=== PATIENT | female | born 1960 | race Caucasian/White ===

== ENCOUNTER 2019-07-23 10:51 | Emergency (ER) | payer OTHER, SELFPAY ==
--- NOTE | ~2019-07-23 | XR_ITS ---
EXAMINATION: XR ankle RT 2V, XR tibia fibula RT 2V, XR foot RT 2V DATE: 07/23/2019 INDICATION: Fall with right lower leg injury presenting with pain at the anterior lower leg and ankle extending over the dorsum of the foot. TECHNIQUE: 1. Anteroposterior and lateral views of the right tibia and fibula were obtained. 2. Anteroposterior and lateral view of the right ankle were obtained. 3. Dorsoplantar and lateral views of the right foot were obtained. COMPARISON: None. FINDINGS: Alignment of the right lower leg, ankle and foot is normal. No fracture or osteochondral lesion. Join t spaces are well maintained. Moderate-sized plantar calcaneal spur. No ankle joint effusion. Mild so ft tissue swelling without evident subcutaneous edema anterior to the distal lower leg. IMPRESSION: 1. Plantar calcaneal spur. No other osseous abnormality in the right lower leg, ankle or foot. Reviewed, dictated and finalized at location A. IMPRESSION: 1. Plantar calcaneal spur. No other osseous abnormality in the right lower leg, ankle or foot. IMPRESSION: 1. Plantar calcaneal spur. No other osseous abnormality in the right lower leg, ankle or foot.
--- NOTE | 2019-07-23 11:15 | ED.FALL ---
HPI - Fall General Stated Complaint: injured r leg and foot Source: patient Mode of arrival: ambulatory Limitations: no limitations History of Present Illness HPI Narrative: This is a 58-year-old female that presents after she fell earlier this morning at home and injuring her right foot ankle and leg causing some pain and some burning sensation bruising to the anterior surface of her right lee, there was no loss of consciousness no head injury. complaint: fall Onset (ago): hour(s) Fall from: standing Fall witnessed: no Place fall occurred: home Loss of consciousness: none Prolonged down time: no Symptoms prior to fall: none Context: tripped/slipped Location of injury - extremities: Right: lower leg, ankle and foot Severity: moderate Severity scale (1-10): 6 Quality: burning Associated symptoms (after fall): denies Related Data Home Medications Medication Instructions Recorded Confirmed aspirin 81 mg PO DAILY 07/23/19 07/23/19 citalopram 40 mg PO DAILY 07/23/19 07/23/19 estradiol 1 mg PO DAILY 07/23/19 07/23/19 fenofibrate nanocrystallized 145 mg PO DAILY 07/23/19 07/23/19 furosemide 20 mg PO DAILY 07/23/19 07/23/19 metformin 500 mg PO DAILY 07/23/19 07/23/19 ijkeezwz-vip-XJ-lycopen-lutein 1 tablet PO DAILY 07/23/19 07/23/19 [CertaVite Senior-Antioxidant] nortriptyline 25 mg PO HS 07/23/19 07/23/19 pantoprazole 40 mg PO HS 07/23/19 07/23/19 zolpidem 5 mg PO HS 07/23/19 07/23/19 Allergies Allergy/AdvReac Type Severity Reaction Status Date / Time No Known Allergies Allergy Verified 07/23/19 11:27 Review of Systems Review of Systems: All systems reviewed & are unremarkable except as noted in HPI and below PMFSH Past Medical History Medical History (Updated 07/23/19 @ 11:52 by Andrew Mclean MD) Asymptomatic PVCs Diabetes mellitus HLD (hyperlipidemia) HTN (hypertension) Exam Const: General: no acute distress and alert Nutritional Appearance: well nourished and obese Orientation/consciousness: patient oriented x3 HENMT: Head: normal to inspection Eyes: Conjunctivae: conjunctivae normal Pupils: Equal, round and reactive pupils present Neck: Neck: normal visual inspection and no lymphadenopathy Chest: Chest palpation & inspection: normal inspection of the chest Resp: Effort & Inspection: normal respiratory effort Auscultation: clear to auscultation bilaterally Cardio: Rate: regular rate Rhythm: regular rhythm GI: Auscultation: normal bowel sounds : General: Yes no CVA tenderness Skin: General skin exam: normal color Rashes: no rashes Neuro: General: patient oriented x3 and moves all extremities Extrem: Other: Mildly decreased range of motion of foot ankle with some mild swelling and bruising mid shaft anterior lee has good range of motion of her knee. Critical Care Time Critical Care Time Critical Care Time: No Discharge Plan Discharge Clinical Impression: Sprain and strain of ankle Patient Disposition: Home, Self-Care Condition: Stable Instructions: Antibiotic Form, Ankle Sprain (ED) Additional Instructions: follow with primary doctor if symptoms persist or worsen, ICE to affected area, tylenol or motrin for brandee. Follow-up/Referrals: Catracho Marshall MD [Primary Care Provider] - Time of Disposition: 11:52
[2019-07-23] MEDS: ACETAMINOPHEN 500 MG TABLET 1000 MG PO (11:29)
[2019-07-23 11:30] VITALS: BP 132/79; PULSE 88; RESP 16; TEMP 36.3; O2SAT 95
== END 2019-07-23 12:01 | disposition home or self-care (01) ==
PROVIDERS: Emergency Provider Emergency Medicine; PCP Internal Medicine
DX: S93.401A Sprain of unspecified ligament of right ankle, initial encounter (principal); W19.XXXA Unspecified fall, initial encounter
CPT/HCPCS: 73590; 73600; 73620; 99282; 99284

== ENCOUNTER 2020-02-16 09:47 | Outpatient (CLI) | payer OTHER, SELFPAY ==
--- NOTE | ~2020-02-16 | MM_ITS ---
EXAMINATION: MM screening jean-pierre BI w gabriella HISTORY: Screening mammogram TECHNIQUE: Craniocaudal and mediolateral oblique 3-D tomosynthesis images were obtained and synthetic 2-D images were generated. CAD analysis was submitted and interpreted. COMPARISON: 02/12/2019, 01/15/2018 bilateral digital screening mammogram examinations BREAST PARENCHYMAL COMPOSITION: There are scattered areas of fibroglandular density. FINDINGS: There is no evidence of suspicious mass, calcification, or architectural distortion to sugg est malignancy in either breast. There has been no suspicious interval change. IMPRESSION: 1. No mammographic evidence of malignancy. 2. Recommend routine screening mammography in one year. BI-RADS Category 1: Negative Reviewed, dictated and finalized at location A.
[2020-02-16 10:04] LABS: Basophils Absolute Auto 0.05 K/mm3 (0.00-0.10); Basophils Percent Auto 0.6 % (0.0-1.0); Eosinophils Absolute Auto 0.29 K/mm3 (0.02-0.50); Eosinophils Percent Auto 3.7 % (1.0-6.0); Hematocrit 43.4 % (35.0-49.0); Hemoglobin 14.5 g/dL (12.0-15.0); Immature Granulocyte Absolute 0.03 K/mm3 (0.00-0.00); Immature Granulocyte Percent A 0.4 % (0.0-0.0); Lymphocytes Absolute Auto 2.01 K/mm3 (1.10-4.50); Lymphocytes Percent Auto 25.3 % (18.0-42.0); Mean Corpuscular HGB Conc 33.4 g/dL (32.0-36.0); Mean Corpuscular Volume 92.7 fL (78.0-102.0); Mean Platelet Volume 9.5 fl (9.2-11.8); Monocytes Absolute Auto 0.44 K/mm3 (0.10-0.90); Monocytes Percent Auto 5.5 % (2.0-11.0); Neutrophils Absolute Auto 5.1 K/mm3 (1.7-7.2); Neutrophils Percent Auto 64.5 % (50.0-70.0); Platelet Count Result 284 K/mm3 (150-420); Red Blood Count 4.68 M/mm3 (4.20-5.40); Red Cell Distribution Width 12.3 % (11.6-14.4); White Blood Count 7.9 K/mm3 (4.8-10.8)
[2020-02-16 10:17] LABS: Hemoglobin A1C 8.3 % (<5.7)
[2020-02-16 10:40] LABS: Add Urine Microscopic? YES; Appearance Urine Clear (Clear); Bilirubin Urine Negative (Negative); Blood Urine Negative (Negative); Color Urine Yellow (Yellow); Glucose Urine UA 1+ (Negative); Ketones Urine Negative (Negative); Leukocyte Esterase Ur Negative (Negative); Nitrate Urine Negative (Negative); Protein Urine Negative (Negative); Specific Grav Ur 1.025 (1.010-1.020); Urobilinogen Urine 0.2 mg/dL (0.2-1.0); pH Urine 5.5 (5.0-8.0)
[2020-02-16 10:47] LABS: Bacteria Urine 1+ /hpf; RBC Urine 0-2 /hpf (0-2); Squamous Epithelial Cell Urine Moderate /hpf (Few); WBC Urine 0-3 /hpf (0-3)
[2020-02-16 10:51] LABS: Creatinine Urine 283.98 mg/dL (40-278); MALB Creatinine Ratio 7.4 mg/g (0-30); Microalbumin Urine Random 21.1 mg/L
[2020-02-16 11:38] LABS: Alanine Aminotransferase 92 U/L (14-59); Albumin Level 4.2 g/dL (3.4-5.0); Alkaline Phosphatase 107 U/L (46-116); Anion Gap 9 mmol/L (8-16); Aspartate Amino Transferase 80 U/L (15-37); Bilirubin,Total 0.5 mg/dL (0.00-1.00); Blood Urea Nitrogen 21 mg/dL (7-18); Calcium 9.4 mg/dL (8.5-10.1); Carbon Dioxide 29 mmol/L (21-32); Chloride 99 mmol/L (98-108); Cholesterol 223 mg/dL (0-200); Estimated Glomerular Filt Rate 48; Free T3 3.04 pg/mL (2.18-3.98); Free T4 Free Thyroxine 1.31 ng/dL (0.76-1.46); Glucose 242 mg/dL (70-99); HDL Direct 27 mg/dL (40-60); LDL Cholesterol Calculated 129 mg/dL (<130); Osmolality Calculated 295 mOsm/kg (285-295); Potassium 4.1 mmol/L (3.5-5.1); Sodium 137 mmol/L (136-145); Thyroid Stimulating Hormone 4.75 uIU/mL (0.36-3.74); Total Protein 7.3 g/dL (6.4-8.2); Triglycerides 337 mg/dL (0-150)
[2020-02-21 13:37] LABS: Immunoglobulin A <5 mg/dL (47-310); Immunoglobulin G 813 mg/dL (600-1640); Immunoglobulin M 26 mg/dL (50-300)
== END 2020-02-16 09:48 | disposition home or self-care (01) ==
LOC: CHSLAB 09:54
PROVIDERS: PCP Internal Medicine; Visit Provider Internal Medicine
DX: Z12.31 Encounter for screening mammogram for malignant neoplasm of breast (principal); I10 Essential (primary) hypertension; E78.2 Mixed hyperlipidemia; E11.9 Type 2 diabetes mellitus without complications; I49.3 Ventricular premature depolarization; D84.9 Immunodeficiency, unspecified
CPT/HCPCS: 36415; 77063; 77067; 80053; 80061; 81001; 82043; 82784; 83036; 84439; 84443; 84481; 85025

== ENCOUNTER 2020-05-04 02:13 | Outpatient (CLI) | payer OTHER, SELFPAY ==
[2020-05-04 17:23] LABS: SARS-CoV-2 RNA PCR Negative
== END 2020-05-04 02:14 | disposition home or self-care (01) ==
LOC: ANHCOVIDDT 02:14
PROVIDERS: PCP Internal Medicine; Visit Provider Surgery
DX: Z01.812 Encounter for preprocedural laboratory examination (principal); Z20.822 Contact with and (suspected) exposure to COVID-19
CPT/HCPCS: C9803; U0003

== ENCOUNTER 2020-05-04 07:52 | Outpatient (CLI) | payer OTHER, SELFPAY ==
--- NOTE | 2020-05-04 07:55 | ECG_ITS ---
Measurements Intervals [place] Rate: 72 P: 47 NV: 177 QRS: 18 QRSD: 106 T: 30 QT: 407 QTc: 447 Interpretive Statements SINUS RHYTHM BORDERLINE R WAVE PROGRESSION, ANTERIOR LEADS BORDERLINE ST-T WAVE ABNORMALITY- ANTERIOR LEADS BASELINE ARTIFACT- I, II, AVR, AVF BORDERLINE ECG Electronically Signed On 05-04-2020 8:11:44 K[employer]OXER by See Haro D.O.
[2020-05-04 08:36] LABS: Anion Gap 7 mmol/L (8-16); Blood Urea Nitrogen 14 mg/dL (7-17); Calcium 9.2 mg/dL (8.4-10.2); Carbon Dioxide 29 mmol/L (22-30); Chloride 103 mmol/L (98-107); Estimated Glomerular Filt Rate > 60; Glucose 118 mg/dL (65-105); Potassium 3.8 mmol/L (3.4-5.0); Sodium 139 mmol/L (137-145)
== END 2020-05-04 07:53 | disposition home or self-care (01) ==
LOC: ANHSURGERY 07:55
PROVIDERS: Anesthesiology; PCP Internal Medicine; Visit Provider Surgery
DX: I10 Essential (primary) hypertension (principal); K43.0 Incisional hernia with obstruction, without gangrene; Z01.818 Encounter for other preprocedural examination; R94.31 Abnormal electrocardiogram [ECG] [EKG]
CPT/HCPCS: 36415; 80048; 86850; 86900; 86901; 93005

== ENCOUNTER 2020-05-07 01:33 | Day surgery (SDC) | payer OTHER, SELFPAY ==
[2020-04-26 15:05] VITALS: BMI 44.5
[2020-05-07] VITALS (12 sets, daily range): BP systolic 103–140; BP diastolic 55–77; PULSE 70–80; RESP 12–18; TEMP 36.3–37.1; O2SAT 93–98; BMI 44.2
--- NOTE | 2020-05-07 06:36 | P.PNAN_ITS ---
Anes - Initial Pre Proc Eval Procedure: Operation Date: 05/07/20 07:30 Proposed Procedures p Robotic Assisted Incisional Hernia Repair With Mesh - Padmini Fulton MD Date/Time: 05/07/20 06:36 Surgeon: Padmini Fulton MD Pre Op Diagnosis: Incisional Hernia Patient Data Age: 59 Gender: F Height: 5 ft 1 in Weight: 107 kg Allergies Allergy/AdvReac Type Severity Reaction Status Date / Time No Known Drug Allergies AdvReac Other Verified 04/26/20 14:29 Home Medications Medication Instructions Recorded Confirmed Type aspirin 81 mg PO HS 07/23/19 04/26/20 History citalopram 40 mg PO DAILY 07/23/19 04/26/20 History estradiol 1 mg PO DAILY 07/23/19 04/26/20 History fenofibrate nanocrystallized 145 mg PO DAILY 07/23/19 04/26/20 History furosemide 20 mg PO DAILY 07/23/19 04/26/20 History metformin 500 mg PO BID 07/23/19 04/26/20 History osvhhxsd-ozl-ZK-lycopen-lutein 1 tablet PO DAILY 07/23/19 04/26/20 History [CertaVite Senior-Antioxidant] nortriptyline 25 mg PO HS 07/23/19 04/26/20 History pantoprazole 40 mg PO HS 07/23/19 04/26/20 History zolpidem 5 mg PO HS 07/23/19 04/26/20 History lisinopril 5 mg tablet 5 mg PO DAILY 02/28/20 04/26/20 History Patient hx anesthesia problems: none Family hx anesthesia problems: none PMFSH Past Medical History Medical History Asymptomatic PVCs Diabetes mellitus History of blood transfusion HLD (hyperlipidemia) HTN (hypertension) Surgical History Surgical History H/O: hysterectomy 1999 History of laparoscopic appendectomy Hx laparoscopic cholecystectomy Hx of tonsillectomy Family History Family History Mother , age 58 Lung cancer Sibling Hypothyroid Grandparent Heart disease Grandparent COPD (chronic obstructive pulmonary disease) Social History Social History Years smoked: 15 Smoking status: Former smoker Tobacco type: cigarettes Second hand tobacco smoke exposure: No Smoking end date: 04/27/89 Alcohol intake: current Alcohol use details: 2X PER YEAR Substance use type: marijuana Other substance usage details: 2X PER YEAR Living arrangements: with family 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 Questions were solicited and answers provided to the satisfaction of the patient/family/POA.
[2020-05-07] MEDS: ACETAMINOPHEN 500 MG TABLET 1000 MG PO (06:46)
[2020-05-07] MEDS: LACTATED RINGERS 1,000 ML 30 ML IV CONT ×2 (06:47→09:33)
[2020-05-07] MEDS: KETOROLAC 15 MG/ML VIAL (*BKC) IV PUSH (06:47)
[2020-05-07 06:56] LABS: Glucose Point of Care 129 (65-105)
--- NOTE | 2020-05-07 07:18 | PM.IMHP ---
H&P: HPI History of Present Illness Date/Time: 05/07/20 07:18 Chief Complaint: incisional hernia Narrative: Delmar Hummel is a 59 year old female presenting with a bulge just to the left side of her umbilicus almost one year ago. Over the year she has lost some weight so the bulge is now more noticeable to her. Typically it is nontender, however she has had a couple episodes of burning. Surgical hx includes total hysterectomy with repair of her pelvic floor in 1999, laparoscopic appendectomy, and laparoscopic cholecystectomy. She is a diabetic and found on recent labs her A1C was had elevated and is working to get her diabetes more controlled. Review of Systems Review of Systems: All systems reviewed & are unremarkable except as noted in HPI and below PMFSH Past Medical History Medical History Asymptomatic PVCs Diabetes mellitus History of blood transfusion HLD (hyperlipidemia) HTN (hypertension) Surgical History Surgical History H/O: hysterectomy 1999 History of laparoscopic appendectomy Hx laparoscopic cholecystectomy Hx of tonsillectomy Family History Family History Mother , age 58 Lung cancer Sibling Hypothyroid Grandparent Heart disease Grandparent COPD (chronic obstructive pulmonary disease) Social History Social History Years smoked: 15 Smoking status: Former smoker Tobacco type: cigarettes Second hand tobacco smoke exposure: No Smoking end date: 04/27/89 Alcohol intake: current Alcohol use details: 2X PER YEAR Substance use type: marijuana Other substance usage details: 2X PER YEAR Living arrangements: with family 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 Spiritual care concerns: No Meds Home Medications and Allergies Home Medications Medication Instructions Recorded Confirmed Type aspirin 81 mg PO HS 07/23/19 04/26/20 History citalopram 40 mg PO DAILY 07/23/19 04/26/20 History estradiol 1 mg PO DAILY 07/23/19 04/26/20 History fenofibrate nanocrystallized 145 mg PO DAILY 07/23/19 04/26/20 History furosemide 20 mg PO DAILY 07/23/19 04/26/20 History metformin 500 mg PO BID 07/23/19 04/26/20 History gytisipe-ytf-EW-lycopen-lutein 1 tablet PO DAILY 07/23/19 04/26/20 History [CertaVite Senior-Antioxidant] nortriptyline 25 mg PO HS 07/23/19 04/26/20 History pantoprazole 40 mg PO HS 07/23/19 04/26/20 History zolpidem 5 mg PO HS 07/23/19 04/26/20 History lisinopril 5 mg tablet 5 mg PO DAILY 02/28/20 04/26/20 History Allergies Allergy/AdvReac Type Severity Reaction Status Date / Time No Known Drug Allergies AdvReac Other Verified 04/26/20 14:29 Vital Signs Vital Signs - 24 hr 05/07/20 06:38 Temperature 36.3 C L Pulse Rate 80 Respiratory Rate 16 Blood Pressure 140/77 Pulse Oximetry 98 Exam Const: General: cooperative, comfortable and no acute distress Nutritional Appearance: obese Orientation/consciousness: patient oriented x3 Limitations: no limitations Resp: Effort & Inspection: normal respiratory effort Auscultation: clear to auscultation bilaterally Cardio: Jugular venous distension: no JVD Rate: regular rate Rhythm: regular rhythm GI: Inspection: normal to inspection, non-distended, no incisions and visible herniation GI Palp: Yes abdominal tenderness, Yes Soft to palpation, Yes Tenderness to palpation present (GI), No Guarding due to palpation present (GI) and No Rigid due to palpation Other: periumbilical ventral hernia Assessment and Plan Assessment and plan (1) Incisional hernia with obstruction, without gangrene: Code(s): K43.0 - Incisional hernia with obstruction, without gangrene Status: Acute Assessment and Plan: will setup for robotic repair c mesh (2) Morbid
--- NOTE | 2020-05-07 07:22 | WPDHPUPDATE1 ---
History and Physical Update Update Date/Time: 05/07/20 07:22 History and Physical has been reviewed, including an updated exam of the patient. There are NO changes in the patient's condition. Risks, benefits, and alternatives have been discussed and questions answered. Patient agrees to proceed with procedure.
[2020-05-07] MEDS: ceFAZolin 2 GM/D5W 50 ML 2 GM/50 ML BAG IVPB (07:26)
[2020-05-07] MEDS: BUPIVACAINE HCL 0.5% PF 30 ML VIAL INFILTRATE (07:48)
[2020-05-07 09:47] LABS: Glucose Point of Care 166 (65-105)
--- NOTE | 2020-05-07 09:50 | PM.PROC ---
Procedure Note - Detailed Date of procedure: 05/07/20 Pre-op diagnosis: Incisional Hernia incarcerated periumbilical ventral incisional hernia Post-op diagnosis: same Procedure performed: robotic assisted repair of incarcerated periumbilical ventral incisional hernia with 15 x 10 cm symbotex mesh in underlay position Description of procedure: The patient was taken the operating room placed in the supine position. After adequate induction of general anesthesia, the patient was prepped and draped in normal sterile fashion. A time-out was then done to verify the patient's identity as well as the procedure being performed. I began by making a 5 mm incision in the left upper quadrant. Through this, a Veress needle was placed into the peritoneal cavity and CO2 gas was insufflated. After adequate pneumoperitoneum was achieved, a 5 mm trocar was placed through this incision. I then placed the laparoscope through this trocar site and under direct visualization I placed a 8 mm port in the left mid abdomen as well as an additional 8 mm port in the left lower abdomen. I then moved the camera to the lower port and replaced the 5 mm port with a 12 mm airport. The robot was then docked to the 3 port sites. I then went to the robotic console. I began by identifying the hernia. A moderate-sized incarcerated hernia was noted in the periumbilical region. Using graspers, I was able to reduce this hernia. The hernia was noted to just contain preperitoneal fat. Once reduced, I also reduced and dissected out the hernia sac. I then closed the approximately 3 cm defect with 0 strata fix suture. I then placed a 15 x 10 cm symbotex mesh into the abdominal cavity. The Vicryl stitch was placed in the middle of the mesh and brought up centering the mesh over the defect. Once this was done, I used 2 0 V lock suture x 2 to circumferentially suture the mesh to the abdominal. Once the mesh was completely sutured in, I was happy with our tension-free repair. The mesh was noted to have good overlap of the defect. At this point, the robot was undocked and all ports were removed. I then closed the 12 mm port site with an 0 Vicryl [id number] suture at the fascial level. All port sites were then closed with 4 O Monocryl subcuticular suture. The patient tolerated the procedure well, is extubated in the operating room postoperative, OB transferred to the recovery room in stable condition. Anesthesia: GETA Surgeon: Padmini Fulton MD Estimated blood loss (mL): 10 Drains: No Packing: No Pathology: none sent Complications: No immediate complications Condition: stable Disposition: PACU Findings: incarcerated periumbilical ventral incisional hernia containing fat
[2020-05-07] MEDS: fentaNYL CITRATE INJ (*CRX) 100 MCG/2 ML VIAL 25 MCG IV PUSH ×4 (10:22→10:42)
--- NOTE | 2020-05-07 10:35 | SUR.PHASEI ---
1011; SAO2 DROPS TO 89-90% ON ROOM AIR. RESP EVEN UNLABORED. P,W,D PT C/O BEING HOT. STATES IM ALWAYS HOT O2 2L NC APPLIED
--- NOTE | 2020-05-07 11:04 | SUR.PHASEI ---
PT GIVEN ICE CHIPS. STATES PAIN MILD AND TOLERABLE. READY TO SIT IN RECLINER.
[2020-05-07] MEDS: oxyCODONE HCL (*CRX) 5 MG TAB IR PO (12:00)
== END 2020-05-07 12:45 | disposition home or self-care (01) ==
PROVIDERS: PCP Internal Medicine; Visit Provider Surgery
PROC: (CPT 49655; principal; 2020-05-07 07:30)
DX: K43.0 Incisional hernia with obstruction, without gangrene (principal); Z79.82 Long term (current) use of aspirin; E11.9 Type 2 diabetes mellitus without complications; E78.5 Hyperlipidemia, unspecified; Z87.891 Personal history of nicotine dependence; E66.01 Morbid (severe) obesity due to excess calories; Z68.41 Body mass index [BMI] 40.0-44.9, adult; Z79.84 Long term (current) use of oral hypoglycemic drugs
CPT/HCPCS: 49655; S2900; A9270; C1781; J0690; J1885; J2250; J3010; J7030; J7120

== ENCOUNTER → 2020-08-27 00:08 | Outpatient (CLI) | payer OTHER, SELFPAY ==
[2020-08-27 19:16] LABS: SARS-CoV-2 RNA PCR Negative
== END ==
PROVIDERS: PCP Internal Medicine; Visit Provider Surgery
DX: Z01.812 Encounter for preprocedural laboratory examination (principal); Z20.822 Contact with and (suspected) exposure to COVID-19
CPT/HCPCS: C9803; U0003; U0005

== ENCOUNTER 2020-08-30 01:25 | Day surgery (SDC) | payer OTHER, SELFPAY ==
[2020-08-16 15:03] VITALS: BMI 43.1
--- NOTE | 2020-08-29 11:31 | WPDANESEPPF ---
Anes - Initial Pre Proc Eval Procedure: Operation Date: 08/30/20 09:00 Proposed Procedures p Screening Colonoscopy - Nikos Willams DO Date/Time: 08/29/20 11:31 Surgeon: Nikos Willams DO Pre Op Diagnosis: Neoplasm Screening Patient Data Age: 60 Gender: F Height: 1.57 m Weight: 107 kg Allergies Allergy/AdvReac Type Severity Reaction Status Date / Time No Known Drug Allergies AdvReac Other Verified 08/30/20 08:05 Home Medications Medication Instructions Recorded Confirmed Type CertaVite Senior 1 tablet PO DAILY 07/23/19 08/16/20 History aspirin 81 mg PO HS 07/23/19 08/16/20 History citalopram 40 mg PO DAILY 07/23/19 08/16/20 History estradiol 1 mg PO DAILY 07/23/19 08/16/20 History fenofibrate nanocrystallized 145 mg PO DAILY 07/23/19 08/16/20 History furosemide 20 mg PO DAILY 07/23/19 08/16/20 History metformin 1,000 mg PO BID 07/23/19 08/16/20 History nortriptyline 25 mg PO HS 07/23/19 08/16/20 History pantoprazole 40 mg PO HS 07/23/19 08/16/20 History zolpidem 5 mg PO HS 07/23/19 08/16/20 History lisinopril 5 mg tablet 5 mg PO DAILY 02/28/20 08/16/20 History Patient hx anesthesia problems: none Family hx anesthesia problems: none PMFSH Past Medical History Medical History Asymptomatic PVCs Diabetes mellitus History of blood transfusion HLD (hyperlipidemia) HTN (hypertension) Surgical History Surgical History H/O: hysterectomy 1999 History of laparoscopic appendectomy History of ventral hernia repair 05/07/20 robotic assisted repair of incarcerated periumbilical ventral incisional hernia with 15 x 10 cm symbotex mesh in underlay position Hx laparoscopic cholecystectomy Hx of tonsillectomy Family History Family History Mother , age 58 Lung cancer Sibling Hypothyroid Grandparent Heart disease Grandparent COPD (chronic obstructive pulmonary disease) Social History Social History Years smoked: 15 Smoking status: Former smoker Tobacco type: cigarettes Second hand tobacco smoke exposure: No Smoking end date: 04/27/89 Alcohol intake: current Substance use: never Substance use type: does not use Other substance usage details: 2X PER YEAR Living arrangements: with family 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 Questions were solicited and answers provided to the satisfaction of the patient/family/POA.
[2020-08-30 08:06] VITALS: BP 143/88; PULSE 80; RESP 20; TEMP 36.3; O2SAT 98
[2020-08-30] MEDS: LACTATED RINGERS 1,000 ML 150 ML IV CONT (08:14)
[2020-08-30 08:20] LABS: Glucose Point of Care 130 (65-105)
--- NOTE | 2020-08-30 08:35 | PM.IMHP ---
H&P: HPI History of Present Illness Date/Time: 08/30/20 08:35 Chief Complaint: Personal history of polyps Narrative: this is a 60-year-old woman who presents for a colonoscopy. Her last colonoscopy was about 5 years ago and polyps were removed at that time. She does have some irregular bowel habits but denies any hematochezia or melena. She denies any family history of colon cancer but her mother did have surgery for diverticulitis. Review of Systems Review of Systems: All systems reviewed & are unremarkable except as noted in HPI and below Constitutional: Constitutional: Denies chills, Denies fever(s), Denies headache(s) and Denies weight loss Eyes: Eyes: Denies change in vision ENT: Denies dizziness, Denies headache(s), Denies neck mass and Denies throat swelling Cardiovascular: Cardiovascular: Denies chest pain, Denies lightheadedness and Denies dyspnea Respiratory: Respiratory: Denies cough, Denies dyspnea and Denies wheezing Gastrointestinal: Gastrointestinal: Denies abdominal pain, Denies change in bowel habits, Denies nausea and Denies vomiting Genitourinary: Genitourinary: Denies hematuria and Denies dysuria Musculoskeletal: Musculoskeletal: Reports as per HPI Integumentary/Breasts: Skin/Breast: Reports as per HPI Neurologic: Denies dizziness and Denies headache(s) Allergic/Immunologic: Allergic/Immunologic: Denies throat swelling and Denies wheezing PMFSH Past Medical History Medical History Asymptomatic PVCs Diabetes mellitus History of blood transfusion HLD (hyperlipidemia) HTN (hypertension) Surgical History Surgical History H/O: hysterectomy 1999 History of laparoscopic appendectomy History of ventral hernia repair 05/07/20 robotic assisted repair of incarcerated periumbilical ventral incisional hernia with 15 x 10 cm symbotex mesh in underlay position Hx laparoscopic cholecystectomy Hx of tonsillectomy Family History Family History Mother , age 58 Lung cancer Sibling Hypothyroid Grandparent Heart disease Grandparent COPD (chronic obstructive pulmonary disease) Social History Social History Years smoked: 15 Smoking status: Former smoker Tobacco type: cigarettes Second hand tobacco smoke exposure: No Smoking end date: 04/27/89 Alcohol intake: current Substance use: never Substance use type: does not use Other substance usage details: 2X PER YEAR Living arrangements: with family Additional occupation/education comments: [employer] Spiritual care concerns: No Meds Home Medications and Allergies Home Medications Medication Instructions Recorded Confirmed Type CertaVite Senior 1 tablet PO DAILY 07/23/19 08/16/20 History aspirin 81 mg PO HS 07/23/19 08/16/20 History citalopram 40 mg PO DAILY 07/23/19 08/16/20 History estradiol 1 mg PO DAILY 07/23/19 08/16/20 History fenofibrate nanocrystallized 145 mg PO DAILY 07/23/19 08/16/20 History furosemide 20 mg PO DAILY 07/23/19 08/16/20 History metformin 1,000 mg PO BID 07/23/19 08/16/20 History nortriptyline 25 mg PO HS 07/23/19 08/16/20 History pantoprazole 40 mg PO HS 07/23/19 08/16/20 History zolpidem 5 mg PO HS 07/23/19 08/16/20 History lisinopril 5 mg tablet 5 mg PO DAILY 02/28/20 08/16/20 History Allergies Allergy/AdvReac Type Severity Reaction Status Date / Time No Known Drug Allergies AdvReac Other Verified 08/30/20 08:05 Vital Signs Vital Signs - 24 hr 08/30/20 08:06 Temperature 36.3 C L Pulse Rate 80 Respiratory Rate 20 Blood Pressure 143/88 H Pulse Oximetry 98 Exam Const: General: no acute distress and alert Orientation/consciousness: patient oriented x3 HENMT: Head: normocephalic and atraumatic Ears: hearing grossly normal bilaterally G
[2020-08-30 09:35] VITALS: BP 134/75; PULSE 73; RESP 14; O2SAT 99
[2020-08-30 09:45] VITALS: BP 147/67; PULSE 71; RESP 13; O2SAT 98
[2020-08-30 09:55] VITALS: BP 142/75; PULSE 69; RESP 16; O2SAT 95
== END 2020-08-30 10:02 | disposition home or self-care (01) ==
PROVIDERS: PCP Internal Medicine; Visit Provider Surgery
PROC: 0DJD8ZZ Inspection of Lower Intestinal Tract, Via Natural or Artificial Opening Endoscopic (ICD-10-PCS; CPT 45378; principal; 2020-08-30 09:00)
DX: Z12.11 Encounter for screening for malignant neoplasm of colon (principal); Z86.010 Personal history of colon polyps; Z79.82 Long term (current) use of aspirin; Z79.84 Long term (current) use of oral hypoglycemic drugs; E11.9 Type 2 diabetes mellitus without complications; E78.5 Hyperlipidemia, unspecified; Z87.891 Personal history of nicotine dependence; E66.01 Morbid (severe) obesity due to excess calories; Z68.41 Body mass index [BMI] 40.0-44.9, adult; K57.30 Diverticulosis of large intestine without perforation or abscess without bleeding; I10 Essential (primary) hypertension
CPT/HCPCS: 45378; 82948; J2704; J7120

== ENCOUNTER 2021-02-27 12:14 | Outpatient (CLI) | payer OTHER, SELFPAY ==
--- NOTE | ~2021-02-27 | US_ITS ---
EXAMINATION: US thyroid EXAM DATE: 02/27/2021 12:41 INDICATION: Hypothyroidism. TECHNIQUE: Multiple grayscale and Doppler images of the thyroid were obtained (by a technologist who performed the scan) and subsequently reviewed. Individual nodules and recommendations may be reporte d in accordance with TI-RADS system as designated by the 2017 ACR White Paper TI-RADS committee. The re is no prior study for comparison. FINDINGS: Right thyroid lobe measures 4.8 x 1.0 x 1.5 cm, the left measuring 4.3 x 1.4 x 1.5 cm. There is 3 mm cyst in the right thyroid lobe. No suspicious nodules. Mildly diffusely heterogeneous thyroid parench yma with expected vascularity. IMPRESSION: 1. Unremarkable thyroid ultrasound exam. Reviewed, dictated and finalized at location A.
--- NOTE | ~2021-02-27 | MM_ITS ---
EXAMINATION: MM screening jean-pierre BI w gabriella HISTORY: Screening TECHNIQUE: Craniocaudal and mediolateral oblique 3-D tomosynthesis images were obtained and synthetic 2-D images were generated. CAD analysis was submitted and interpreted. COMPARISON: Comparison to multiple prior studies sequentially, with oldest reviewed study dated 01/15. BREAST PARENCHYMAL COMPOSITION: There are scattered areas of fibroglandular density. FINDINGS: There is no evidence of suspicious mass, calcification, or architectural distortion to sugg est malignancy in either breast. There has been no suspicious interval change. IMPRESSION: 1. No mammographic evidence of malignancy. 2. Recommend routine screening mammography in one year. BI-RADS Category 1: Negative Reviewed, dictated and finalized at location A.
== END 2021-02-27 12:15 | disposition home or self-care (01) ==
LOC: CHSIMG 12:15
PROVIDERS: PCP Internal Medicine; Visit Provider Internal Medicine
DX: E03.9 Hypothyroidism, unspecified (principal); E04.1 Nontoxic single thyroid nodule; Z12.31 Encounter for screening mammogram for malignant neoplasm of breast
CPT/HCPCS: 76536; 77063; 77067

== ENCOUNTER 2021-03-01 16:34 | Emergency (ER) | payer OTHER, SELFPAY ==
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
--- NOTE | ~2021-03-01 | CT_ITS ---
EXAMINATION: CT diagnostic chest wo con DATE: 03/01/2021 19:13 INDICATION: Left chest wall pain TECHNIQUE: Computed tomography (CT) of the chest was performed without intravenous contrast. Automate d exposure control and iterative reconstruction technique were employed. Exam dose: 456.64 mGy-cm to rula exam DLP. COMPARISON: None FINDINGS: Normal heart size. No thoracic aortic aneurysm. No hilar or mediastinal mass lesion or lymp hadenopathy. No pericardial or pleural effusion or pneumothorax. Right upper lobe calcified pulmonary granuloma. Mild discoid scarring in the medial segment of the mi ddle lobe. No pulmonary infiltrate or consolidation or pulmonary mass lesion is evident. Diffuse hepatic steatosis. Status post cholecystectomy. The included portions of the adrenal glands are unremarkable. Degenerative spurring of the thoracic spine. Included skeletal structures are otherwise unremarkable. IMPRESSION: Diffuse hepatic steatosis Status post cholecystectomy Reviewed, dictated and finalized at [facility]. Reviewed, dictated and finalized at location A.
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
[2021-03-01 16:35] VITALS: BP 154/91; PULSE 83; RESP 18; TEMP 35.9
--- NOTE | 2021-03-01 17:07 | PC.NURSE ---
1630 monitor applied, NSR. denies chest pain, has history of HTN & Palpatations
--- NOTE | 2021-03-01 17:10 | ECG_ITS ---
Measurements Intervals Petros Rate: 73 P: 44 ND: 181 QRS: 13 QRSD: 98 T: 54 QT: 412 QTc: 457 Interpretive Statements SINUS RHYTHM DELAYED PRECORDIAL R/S TRANSITION BORDERLINE T WAVE ABNORMALITY- ANTERIOR LEADS BORDERLINE ECG Electronically Signed On 03-01-2021 20:26:52 CDT by See Haro D.O.
[2021-03-01] MEDS: IBUPROFEN 400 MG TABLET 800 MG PO (17:23)
[2021-03-01 17:30] LABS: Basophils Absolute Auto 0.03 K/mm3 (0.00-0.10); Basophils Percent Auto 0.4 % (0.0-1.0); Eosinophils Absolute Auto 0.24 K/mm3 (0.02-0.50); Hematocrit 37.2 % (35.0-49.0); Hemoglobin 12.5 g/dL (12.0-15.0); Immature Granulocyte Absolute 0.03 K/mm3 (0.00-0.00); Immature Granulocyte Percent A 0.4 % (0.0-0.0); Lymphocytes Absolute Auto 1.99 K/mm3 (1.10-4.50); Lymphocytes Percent Auto 25.3 % (18.0-42.0); Mean Corpuscular HGB Conc 33.6 g/dL (32.0-36.0); Mean Corpuscular Hemoglobin 30.9 pg (27.0-31.0); Mean Corpuscular Volume 91.9 fL (78.0-102.0); Mean Platelet Volume 9.4 fl (9.2-11.8); Monocytes Absolute Auto 0.37 K/mm3 (0.10-0.90); Monocytes Percent Auto 4.7 % (2.0-11.0); Neutrophils Absolute Auto 5.2 K/mm3 (1.7-7.2); Neutrophils Percent Auto 66.2 % (50.0-70.0); Platelet Count Result 265 K/mm3 (150-420); Red Blood Count 4.05 M/mm3 (4.20-5.40); Red Cell Distribution Width 11.9 % (11.6-14.4); White Blood Count 7.9 K/mm3 (4.8-10.8)
[2021-03-01 17:48] LABS: Alanine Aminotransferase 47 U/L (14-59); Albumin Level 3.8 g/dL (3.4-5.0); Alkaline Phosphatase 57 U/L (46-116); Anion Gap 8 mmol/L (8-16); Aspartate Amino Transferase 28 U/L (15-37); Bilirubin,Total 0.2 mg/dL (0.00-1.00); Blood Urea Nitrogen 21 mg/dL (7-18); Calcium 9.2 mg/dL (8.5-10.1); Carbon Dioxide 28 mmol/L (21-32); Chloride 101 mmol/L (98-108); Estimated CRCL calculation 50 ml/min; Estimated Glomerular Filt Rate 45; Glucose 101 mg/dL (70-99); Osmolality Calculated 287 mOsm/kg (285-295); Sodium 137 mmol/L (136-145); Total Protein 6.6 g/dL (6.4-8.2); Troponin I 6.9 ng/L (0.00-60.4)
[2021-03-01 18:00] VITALS: BP 140/88; PULSE 80; RESP 18; O2SAT 98
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
[2021-03-01 20:56] VITALS: BP 150/66; PULSE 88; RESP 18; TEMP 36.6; O2SAT 98
== END 2021-03-01 21:34 | disposition home or self-care (01) ==
PROVIDERS: Emergency Provider Emergency Medicine; PCP Internal Medicine
DX: S06.0X0A Concussion without loss of consciousness, initial encounter (principal); S13.4XXA Sprain of ligaments of cervical spine, initial encounter; V49.40XA Driver injured in collision with unspecified motor vehicles in traffic accident, initial encounter
CPT/HCPCS: 36415; 70450; 71250; 72125; 73060; 80053; 84484; 85025; 93005; 99283; 99284; A9270

== ENCOUNTER 2021-10-22 15:38 | Outpatient (CLI) | payer OTHER, SELFPAY ==
--- NOTE | ~2021-10-22 | XR_ITS ---
EXAMINATION: XR chest 2V Exam Date/Time: 10/22/2021 15:50 CDT HISTORY: cough with LT sided chest pain x 1 wk Comparison: None available. RESULT: Lines, tubes, and devices: None. Lungs and pleura: Ill-defined groundglass opacities in the right mid and bilateral lower lungs. Cardiomediastinal silhouette: Stable cardiomediastinal silhouette. Other: No acute osseous or upper abdominal finding. IMPRESSION: Pulmonary findings likely reflect atypical/viral pneumonia, in the appropriate clinical context. Reviewed, dictated and finalized at location K.
[2021-10-22 15:59] LABS: Basophils Absolute Auto 0.04 K/mm3 (0.00-0.10); Basophils Percent Auto 0.5 % (0.0-1.0); Eosinophils Absolute Auto 0.27 K/mm3 (0.02-0.50); Eosinophils Percent Auto 3.4 % (1.0-6.0); Hematocrit 37.1 % (35.0-49.0); Hemoglobin 12.7 g/dL (12.0-15.0); Immature Granulocyte Absolute 0.03 K/mm3 (0.00-0.00); Immature Granulocyte Percent A 0.4 % (0.0-0.0); Lymphocytes Absolute Auto 1.88 K/mm3 (1.10-4.50); Mean Corpuscular HGB Conc 34.2 g/dL (32.0-36.0); Mean Corpuscular Hemoglobin 31.7 pg (27.0-31.0); Mean Corpuscular Volume 92.5 fL (78.0-102.0); Mean Platelet Volume 9.1 fl (9.2-11.8); Monocytes Absolute Auto 0.56 K/mm3 (0.10-0.90); Monocytes Percent Auto 7.2 % (2.0-11.0); Neutrophils Absolute Auto 5.1 K/mm3 (1.7-7.2); Neutrophils Percent Auto 64.5 % (50.0-70.0); Platelet Count Result 264 K/mm3 (150-420); Red Blood Count 4.01 M/mm3 (4.20-5.40); White Blood Count 7.8 K/mm3 (4.8-10.8)
[2021-10-22 16:23] LABS: Alanine Aminotransferase 40 U/L (14-59); Albumin Level 3.7 g/dL (3.4-5.0); Alkaline Phosphatase 78 U/L (46-116); Anion Gap 8 mmol/L (8-16); Aspartate Amino Transferase 26 U/L (15-37); Bilirubin,Total 0.3 mg/dL (0.00-1.00); Blood Urea Nitrogen 13 mg/dL (7-18); Calcium 9.2 mg/dL (8.5-10.1); Carbon Dioxide 29 mmol/L (21-32); Chloride 101 mmol/L (98-108); Estimated Glomerular Filt Rate 46; Glucose 118 mg/dL (70-99); Osmolality Calculated 287 mOsm/kg (285-295); Potassium 4.1 mmol/L (3.5-5.1); Sodium 138 mmol/L (136-145); Total Protein 6.7 g/dL (6.4-8.2)
== END 2021-10-22 15:39 | disposition home or self-care (01) ==
LOC: CHSLAB 15:42
PROVIDERS: PCP Internal Medicine; Visit Provider Nurse Practitioner Family
DX: R05.9 Cough, unspecified (principal)
CPT/HCPCS: 36415; 71046; 80053; 85025

== ENCOUNTER 2022-02-10 10:44 | Outpatient (CLI) | payer OTHER, SELFPAY ==
--- NOTE | ~2022-02-10 | XR_ITS ---
EXAMINATION: XR knee RT min 4V DATE: 02/10/2022 11:16 INDICATION: Right knee pain. TECHNIQUE: 4 views of right knee were obtained. COMPARISON: Right tibia-fibula radiographs 07/15/2019 FINDINGS: Bone alignment is normal. No fracture. There is mild tricompartmental osteoarthritis charac terized by marginal osteophytes. No joint space narrowing. No knee joint effusion. IMPRESSION: 1. Mild right knee osteoarthritis. Reviewed, dictated and finalized at location B.
== END 2022-02-10 10:45 | disposition home or self-care (01) ==
LOC: CHSIMG 10:47
PROVIDERS: PCP Internal Medicine; Visit Provider Internal Medicine
DX: M25.561 Pain in right knee (principal)
CPT/HCPCS: 73564

== ENCOUNTER → 2022-02-12 09:41 | Outpatient (CLI) | payer OTHER, SELFPAY ==
--- NOTE | ~2022-02-12 | US_ITS ---
EXAMINATION: US abdomen limited DATE: 02/12/2022 10:04 INDICATION: Abnormal liver function tests. Epigastric abdominal pain. TECHNIQUE: Multiple grayscale and Doppler ultrasound images of the abdomen were obtained. COMPARISON: Chest CT 03/01/2021 FINDINGS: The visualized portions of the head and body of the pancreas are normal. There is diffuse h epatic steatosis. No liver surface nodularity. There is normal flow in main portal vein. The gallblad jayne is absent. The common duct is normal and measures 9 mm. IMPRESSION: 1. Diffuse hepatic steatosis. Reviewed, dictated and finalized at location B.
== END ==
PROVIDERS: PCP Internal Medicine; Visit Provider Internal Medicine
DX: R74.8 Abnormal levels of other serum enzymes (principal); R10.13 Epigastric pain; K76.0 Fatty (change of) liver, not elsewhere classified
CPT/HCPCS: 76705

== ENCOUNTER 2022-05-29 09:12 | Outpatient (CLI) | payer OTHER, SELFPAY ==
--- NOTE | ~2022-05-29 | MM_ITS ---
EXAMINATION: MM screening jean-pierre BI w gabriella HISTORY: Screening TECHNIQUE: Craniocaudal and mediolateral oblique 3-D tomosynthesis images were obtained and synthetic 2-D images were generated. CAD analysis was submitted and interpreted. COMPARISON: Comparison to multiple prior studies sequentially, with oldest reviewed study dated 01/26. BREAST PARENCHYMAL COMPOSITION: There are scattered areas of fibroglandular density. FINDINGS: There is no evidence of suspicious mass, calcification, or architectural distortion to sugg est malignancy in either breast. There has been no suspicious interval change. IMPRESSION: 1. No mammographic evidence of malignancy. 2. Recommend routine screening mammography in one year. BI-RADS Category 1: Negative Reviewed, dictated and finalized at location A. 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
== END 2022-05-29 09:13 | disposition home or self-care (01) ==
PROVIDERS: PCP Internal Medicine; Visit Provider Internal Medicine
DX: Z12.31 Encounter for screening mammogram for malignant neoplasm of breast (principal)
CPT/HCPCS: 77063; 77067

== ENCOUNTER 2022-06-27 10:36 | Outpatient (CLI) | payer OTHER, SELFPAY ==
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
[2022-06-27 10:49] LABS: Basophils Absolute Auto 0.04 K/mm3 (0.00-0.10); Basophils Percent Auto 0.5 % (0.0-1.0); Eosinophils Absolute Auto 0.28 K/mm3 (0.02-0.50); Eosinophils Percent Auto 3.8 % (1.0-6.0); Hematocrit 36.9 % (35.0-49.0); Hemoglobin 12.6 g/dL (12.0-15.0); Immature Granulocyte Absolute 0.02 K/mm3 (0.00-0.00); Immature Granulocyte Percent A 0.3 % (0.0-0.0); Lymphocytes Absolute Auto 2.07 K/mm3 (1.10-4.50); Lymphocytes Percent Auto 28.2 % (18.0-42.0); Mean Corpuscular HGB Conc 34.1 g/dL (32.0-36.0); Mean Corpuscular Hemoglobin 31.6 pg (27.0-31.0); Mean Corpuscular Volume 92.5 fL (78.0-102.0); Mean Platelet Volume 9.3 fl (9.2-11.8); Monocytes Absolute Auto 0.37 K/mm3 (0.10-0.90); Neutrophils Absolute Auto 4.6 K/mm3 (1.7-7.2); Neutrophils Percent Auto 62.2 % (50.0-70.0); Platelet Count Result 253 K/mm3 (150-420); Red Blood Count 3.99 M/mm3 (4.20-5.40); Red Cell Distribution Width 12.3 % (11.6-14.4); White Blood Count 7.3 K/mm3 (4.8-10.8)
[2022-06-27 11:08] LABS: D Dimer 0.19 mg/L (0.19-0.50); Partial Thromboplastin Time 25.2 SEC (23.90-30.70); Prothrombin Time 11.3 Seconds (9.50-12.10)
== END 2022-06-27 10:37 | disposition home or self-care (01) ==
LOC: CHSLAB 10:38
PROVIDERS: PCP Internal Medicine; Visit Provider Nurse Practitioner Family
DX: S89.91XA Unspecified injury of right lower leg, initial encounter (principal); M79.89 Other specified soft tissue disorders
CPT/HCPCS: 36415; 73590; 85025; 85380; 85610; 85730

== ENCOUNTER 2023-03-11 15:32 | Outpatient (CLI) | payer OTHER, SELFPAY ==
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
== END 2023-03-11 15:33 | disposition home or self-care (01) ==
PROVIDERS: PCP Internal Medicine; Visit Provider Internal Medicine
DX: D16.9 Benign neoplasm of bone and articular cartilage, unspecified (principal)
CPT/HCPCS: 73590

== ENCOUNTER 2023-04-03 09:13 | Outpatient (CLI) | payer OTHER, SELFPAY ==
--- NOTE | 2023-04-03 | EST_ITS ---
Patient Info Name: Delmar Hummel Age: 62 years : 1960 Gender: Female Ht: 61 in Wt: 240 lbs BSA: 2.23 m2 HR: 69 bpm BP: 121 / 70 mmHg Heart Rhythm: Sinus Rhythm Exam Date: 04/03/2023 10:24 AM Exam Location: Echo Lab Patient Status: Outpatient Admit Date: 04/03/2023 Staff Ordering Physician: Catracho Marshall MD Attending Provider: Catracho Marshall MD Exercise Technologist: Genevieve Buitrago CT Exercise Physician: See Haro DO Exam Type: CA stress yasmeen w NM Study Info Indications I47.2 - Ventricular tachycardia A regadenoson stress test was performed. Summary 1. 1. Negative lexiscan stress test for ischemic ST changes by ECG criteria. 2. 2. Stable hemodynamics throughout the test. 3. 3. Nuclear scan to follow and will be reported separately. Please correlate with it. 4. 4. Patient informed of the above results. Protocol: Lexiscan Stress ECG Details Stage: REST Duration (min): 1 min : 8 sec HR (bpm): 69 SBP (mmHg): 121 DBP (mmHg): 70 Stage: REST Duration (min): 7 min : 35 sec HR (bpm): 68 SBP (mmHg): 121 DBP (mmHg): 70 Stage: STAGE 1 Duration (min): 1 min : 0 sec HR (bpm): 77 SBP (mmHg): 113 DBP (mmHg): 65 Stage: RECOVERY Duration (min): 1 min : 0 sec HR (bpm): 80 SBP (mmHg): 113 DBP (mmHg): 65 Stage: RECOVERY Duration (min): 2 min : 0 sec HR (bpm): 77 SBP (mmHg): 113 DBP (mmHg): 65 Stage: RECOVERY Duration (min): 3 min : 0 sec HR (bpm): 76 SBP (mmHg): 119 DBP (mmHg): 67 Stage: RECOVERY Duration (min): 3 min : 24 sec HR (bpm): 78 SBP (mmHg): 119 DBP (mmHg): 67 Rest HR: 68 bpm Peak HR: 85 bpm Rest Sys BP: 121 mmHg Peak Sys BP: 119 mmHg Max Pred HR: 160 bpm % Max Pred HR: 53 % Target HR: 136 bpm Max RPP: 10,115 bpm*mmHg Termination Reason: Completed protocol Cardiac Symptoms: Shortness of breath, Chest discomfort Total Time: 1 min : 0 sec Rest Esparza BP: 70 mmHg Peak Esparza BP: 67 mmHg Total Dose: 0.4 mg Resting ECG Sinus rhythm. Stress ECG No ST changes. Arrhythmias None. Report Signatures
--- NOTE | ~2023-04-03 | NM_ITS ---
EXAMINATION: NM yasmeen stress w perfusion DATE: 04/03/2023 11:42 INDICATION: Nonsustained ventricular tachycardia TECHNIQUE: Rest images were obtained following intravenous administration of 9.8 mCi Tc99m tetrofosmi n (Myoview). The patient was infused intravenously with Lexiscan (Regadenoson). Then, 21.4 mCi Tc99m tetrofosmin (Myoview) was administered intravenously, and stress images were obtained in both supine and prone positions. Data was reconstructed into short axis and horizontal and vertical long axis SPE CT images. Gated SPECT images were also obtained. COMPARISON: None. FINDINGS: There is extensive mild decreased activity likely related to breast attenuation artifact al jesus the anterior, anteroseptal and anterolateral fernandez on the supine post stress imaging which largel y normalizes on the prone post stress imaging. There is a small mild fixed perfusion defect at the ju nction of the mid anteroseptal and mid anterior segments on both the rest and prone post stress image s consistent with infarct. There is suggestion of partial reversibility at the mid anterior segment c onsistent with mild ischemia. There is normal left ventricular chamber size, wall motion and ejectio n fraction. Left ventricular ejection fraction measures 61%. IMPRESSION: 1. Small mild infarct at the junction of the mid anteroseptal and mid anterior segments, partially re versible consistent with mild ischemia at the mid anterior segment.. 2. Left ventricular ejection fraction measuring >70%. Reviewed, dictated and finalized at location A. 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 Small mild infarct at the junction of the mid anteroseptal and mid anterior segments, partially reversible consistent with mild ischemia at the mid anterio r segment.. 2. Left ventricular ejection fraction measuring >70%.
== END 2023-04-03 09:14 | disposition home or self-care (01) ==
LOC: ANHCARD 09:16
PROVIDERS: PCP Internal Medicine; Visit Provider Internal Medicine
DX: I47.29 Other ventricular tachycardia (principal)
CPT/HCPCS: 78452; 93017; A9502; J2785

== ENCOUNTER 2023-07-29 09:19 | Outpatient (CLI) | payer OTHER, SELFPAY ==
--- NOTE | ~2023-07-29 | MM_ITS ---
EXAMINATION: MM screening jean-pierre BI w gabriella HISTORY: Screening TECHNIQUE: Craniocaudal and mediolateral oblique 3-D tomosynthesis images were obtained and synthetic 2-D images were generated. CAD analysis was submitted and interpreted. COMPARISON: Comparison to multiple prior studies sequentially, with oldest reviewed study dated 01/26. BREAST PARENCHYMAL COMPOSITION: Not dense: There are scattered areas of fibroglandular density. FINDINGS: There is no evidence of suspicious mass, calcification, or architectural distortion to sugg est malignancy in either breast. There has been no suspicious interval change. IMPRESSION: 1. No mammographic evidence of malignancy. 2. Recommend routine screening mammography in one year. BI-RADS Category 1: Negative Reviewed, dictated and finalized at location A.
== END 2023-07-29 09:20 | disposition home or self-care (01) ==
LOC: ANHIMG 09:20
PROVIDERS: PCP Internal Medicine; Visit Provider Internal Medicine
DX: Z12.31 Encounter for screening mammogram for malignant neoplasm of breast (principal)
CPT/HCPCS: 77063; 77067

== ENCOUNTER 2024-01-11 13:51 | Outpatient (CLI) | payer OTHER, SELFPAY ==
--- NOTE | ~2024-01-11 | US_ITS ---
EXAMINATION: US renal BI DATE: 01/11/2024 14:09 INDICATION: Stage 3 chronic kidney disease TECHNIQUE: Multiple ultrasound grayscale images of the kidneys were obtained. COMPARISON: None. FINDINGS: The right kidney measures 9.6 x 4.8 x 4.7 cm. The left kidney measures 4.0 x 5.9 x 4.7 cm. The kidney s demonstrate normal echogenicity. There is no hydronephrosis in either kidney. No stones identified . The bladder is normal. IMPRESSION: 1. Normal kidneys without hydronephrosis. Reviewed, dictated and finalized at location B.
== END 2024-01-11 13:52 | disposition home or self-care (01) ==
PROVIDERS: PCP Internal Medicine; Visit Provider Internal Medicine
DX: N18.32 Chronic kidney disease, stage 3b (principal)
CPT/HCPCS: 76775

== ENCOUNTER 2024-01-15 09:58 | Outpatient (CLI) | payer OTHER, SELFPAY ==
[2024-01-15 10:38] LABS: Anion Gap 10 mmol/L (4-12); Blood Urea Nitrogen 20 mg/dL (7-18); Calcium 8.9 mg/dL (8.5-10.1); Carbon Dioxide 28 mmol/L (21-32); Chloride 103 mmol/L (98-108); Estimated Glomerular Filt Rate 27; Glucose 135 mg/dL (70-99); Osmolality Calculated 296 mOsm/kg (285-295); Potassium 4.1 mmol/L (3.5-5.1); Sodium 141 mmol/L (136-145)
== END 2024-01-15 09:59 | disposition home or self-care (01) ==
LOC: CHSLAB 09:59
PROVIDERS: PCP Internal Medicine; Visit Provider Internal Medicine
DX: I10 Essential (primary) hypertension (principal)
CPT/HCPCS: 36415; 80048

== ENCOUNTER 2024-01-18 12:36 | Outpatient (CLI) | payer OTHER, SELFPAY ==
[2024-01-18 13:15] LABS: Anion Gap 11 mmol/L (4-12); Blood Urea Nitrogen 23 mg/dL (7-18); Calcium 9.3 mg/dL (8.5-10.1); Carbon Dioxide 27 mmol/L (21-32); Chloride 104 mmol/L (98-108); Estimated Glomerular Filt Rate 27; Glucose 100 mg/dL (70-99); Osmolality Calculated 297 mOsm/kg (285-295); Potassium 4.1 mmol/L (3.5-5.1); Sodium 142 mmol/L (136-145)
== END 2024-01-18 12:37 | disposition home or self-care (01) ==
LOC: CHSLAB 12:39
PROVIDERS: PCP Internal Medicine; Visit Provider Internal Medicine
DX: E86.0 Dehydration (principal)
CPT/HCPCS: 36415; 80048

== ENCOUNTER 2024-01-22 12:35 | Outpatient (CLI) | payer OTHER, SELFPAY ==
--- NOTE | ~2024-01-22 | XR_ITS ---
XR chest 2V Ordering provider: Catracho Marshall MD History: 63 years Female with . SOB,MCBRIDE . Comparison: October 02, 2022 FINDINGS: MEDIASTINUM: The cardiac silhouette is not enlarged. Device is projected over the heart. LUNGS: No infiltrates, effusions or pneumothorax. OTHER: No free air under the diaphragm. IMPRESSION: No acute cardiopulmonary pathology. Reviewed, dictated and finalized at location A.
[2024-01-22 12:51] LABS: Basophils Absolute Auto 0.03 K/mm3 (0.00-0.10); Basophils Percent Auto 0.5 % (0.0-1.0); Eosinophils Absolute Auto 0.29 K/mm3 (0.02-0.50); Eosinophils Percent Auto 4.7 % (1.0-6.0); Hematocrit 28.8 % (35.0-49.0); Hemoglobin 9.6 g/dL (12.0-15.0); Immature Granulocyte Absolute 0.04 K/mm3 (0.00-0.00); Immature Granulocyte Percent A 0.6 % (0.0-0.0); Lymphocytes Absolute Auto 1.13 K/mm3 (1.10-4.50); Lymphocytes Percent Auto 18.2 % (18.0-42.0); Mean Corpuscular HGB Conc 33.3 g/dL (32-36); Mean Corpuscular Hemoglobin 32.1 pg (27.0-31.0); Mean Corpuscular Volume 96.3 fL (78.0-102.0); Mean Platelet Volume 8.8 fl (9.2-11.8); Monocytes Absolute Auto 0.35 K/mm3 (0.10-0.90); Monocytes Percent Auto 5.6 % (2.0-11.0); Neutrophils Absolute Auto 4.37 K/mm3 (1.70-7.20); Neutrophils Percent Auto 70.4 % (50.0-70.0); Platelet Count Result 210 K/mm3 (150-420); Red Blood Count 2.99 M/mm3 (4.20-5.40); White Blood Count 6.2 K/mm3 (4.8-10.8)
[2024-01-22 13:13] LABS: Anion Gap 8 mmol/L (4-12); Blood Urea Nitrogen 23 mg/dL (7-18); Calcium 8.9 mg/dL (8.5-10.1); Carbon Dioxide 28 mmol/L (21-32); Chloride 105 mmol/L (98-108); Estimated Glomerular Filt Rate 29; Glucose 151 mg/dL (70-99); NT Pro B Type Natriuretic Pept 1298 pg/mL (0-125); Osmolality Calculated 298 mOsm/kg (285-295); Potassium 4.1 mmol/L (3.5-5.1); Sodium 141 mmol/L (136-145)
== END 2024-01-22 12:36 | disposition home or self-care (01) ==
PROVIDERS: PCP Internal Medicine; Visit Provider Internal Medicine
DX: R06.02 Shortness of breath (principal)
CPT/HCPCS: 36415; 71046; 80048; 80053; 83880; 85025

== ENCOUNTER 2024-02-01 13:22 | Outpatient (CLI) | payer OTHER, SELFPAY ==
[2024-02-01 13:43] LABS: Hematocrit 29.4 % (35.0-49.0); Mean Corpuscular Hemoglobin 32.5 pg (27.0-31.0); Mean Corpuscular Volume 95.5 fL (78.0-102.0); Platelet Count Result 200 K/mm3 (150-420); Red Blood Count 3.08 M/mm3 (4.20-5.40); Red Cell Distribution Width 13.2 % (11.6-14.4); White Blood Count 6.3 K/mm3 (4.8-10.8)
[2024-02-01 13:59] LABS: Anion Gap 9 mmol/L (4-12); Blood Urea Nitrogen 24 mg/dL (7-18); Carbon Dioxide 29 mmol/L (21-32); Chloride 106 mmol/L (98-108); Estimated Glomerular Filt Rate 33; Glucose 87 mg/dL (70-99); NT Pro B Type Natriuretic Pept 1541 pg/mL (0-125); Osmolality Calculated 301 mOsm/kg (285-295); Potassium 3.5 mmol/L (3.5-5.1); Sodium 144 mmol/L (136-145)
== END 2024-02-01 13:23 | disposition home or self-care (01) ==
LOC: CHSLAB 13:24
PROVIDERS: PCP Internal Medicine; Visit Provider Internal Medicine
DX: R06.02 Shortness of breath (principal); I10 Essential (primary) hypertension
CPT/HCPCS: 36415; 80048; 83880; 85027

== ENCOUNTER 2024-02-22 09:15 | Outpatient (CLI) | payer OTHER, SELFPAY ==
[2024-02-22 10:17] LABS: Albumin Level 3.5 g/dL (3.4-5.0); Anion Gap 10 mmol/L (4-12); Blood Urea Nitrogen 25 mg/dL (7-18); Calcium 9.1 mg/dL (8.5-10.1); Carbon Dioxide 29 mmol/L (21-32); Chloride 106 mmol/L (98-108); Estimated Glomerular Filt Rate 34; Glucose 117 mg/dL (70-99); Osmolality Calculated 305 mOsm/kg (285-295); Phosphorus 3.8 mg/dL (2.6-4.7); Potassium 3.9 mmol/L (3.5-5.1); Sodium 145 mmol/L (136-145)
[2024-02-25 14:53] LABS: Anti Glomerular Basement Memb <1.0 AI
[2024-02-26 15:14] LABS: ANCA Screen NEGATIVE (NEGATIVE)
== END 2024-02-22 09:16 | disposition home or self-care (01) ==
LOC: CHSLAB 09:18
PROVIDERS: PCP Internal Medicine; Visit Provider Internal Medicine Nephrology
DX: N18.32 Chronic kidney disease, stage 3b (principal); M79.89 Other specified soft tissue disorders; I10 Essential (primary) hypertension; I25.118 Atherosclerotic heart disease of native coronary artery with other forms of angina pectoris
CPT/HCPCS: 36415; 80069; 83520; 86036

== ENCOUNTER 2024-03-18 10:31 | Outpatient (CLI) | payer OTHER, SELFPAY ==
[2024-03-18 11:10] LABS: Cholesterol 165 mg/dL (0-200); HDL Direct 62 mg/dL (40-60); LDL Cholesterol Calculated 89 mg/dL (<130); Triglycerides 72 mg/dL (0-150)
== END 2024-03-18 10:32 | disposition home or self-care (01) ==
LOC: CHSLAB 10:32
PROVIDERS: PCP Internal Medicine; Visit Provider Internal Medicine Cardiovascular Disease
DX: E78.5 Hyperlipidemia, unspecified (principal)
CPT/HCPCS: 36415; 80061

== ENCOUNTER 2024-04-08 12:03 | Outpatient (CLI) | payer OTHER, SELFPAY ==
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
--- OUTSIDE RECORDS SUMMARY | 2024-04-08 12:47 | XMS_ITS ---
Author Organization [facility] Address [address] [place] [address] Care Team Providers Care Education Coordinator Name Role Phone Catracho Marshall Primary Care Provider Unavailabl e Elizabeth Williamson Unavailable [phone] ZZ-Migration, Provider Unavailable Unavailab le REASON FOR VISIT [facility] To [facility] Conversion Encounter Medications Medication SIG (Take, Route, Frequency, Duration) Notes Start Date End Date Status Estrace 1 MG 1 tab(s) orally once a day Active Citalopram Hydrobromide 40 MG 1 tab(s) orally once a day Active Nortriptyline HCl 25 MG 2 cap(s) [...] 500 MG 1 tab(s) orally Qday Active Lasix 20 MG 1 tab(s) orally once a day Active Azelastine HCl 137 MCG/SPRAY 2 spray(s) intranasally 2 times a day for 30 day(s) Active Pantoprazole Sodium 40 MG 1 tab(s) orally bid Active Aspirin 81 MG 1 tab(s) chewed once a day Active Zolpidem Tartrate 5 MG 1 tab(s) orally o nce a day (at bedtime) Active Multivitamin - 1 po once a day Active Encounters Encounter Location Date Provider Diagnosis [facility] [address] [place] [address] 10/10/2023 Provider Seema Chronic rhinitis J31.0 Assessments Encounter Date Diagnosis (ICD Code) Assessment Notes Treatment Notes Treatment Clinical Notes Section Notes 10/10/2023 Chronic rhinitis (ICD-10 - J31.0) Plan Of Treatment Medication Medication Name Sig Start Date Stop Date Notes Azelastine HCl 137 MCG/SPRAY 2 spray(s) intranasally 2 times a day for 30 day(s) Progress Notes * Prabhakar KOOOB: [birth year] (63 yo F)Acc No.[id number]:10/10/2023 Patient:?Delmar KOO Provider:?Provider Migration :1960???Age:63 Y???Sex:Female D ate:10/10/2023 Address:[address] [place] [address] Pcp:Catracho Marshall Subjective: * Chief Complaints: * ???[facility] * Medical History:? * Medications:?Taking Citalopr am Hydrobromide 40 MG Tablet 1 tab(s) orally once a day , Taking Estrace 1 MG Tablet 1 tab(s) orally once a day , Taking Fenofibrate 145 MG Tablet 1 tab(s) orally once a day , Taking Metoprolol Succinate ER 25 MG Tablet Extended Release 24 Hour 1 tab(s) orally once a day , Taking Nortriptyline HCl 25 MG Capsule 2 cap(s) orally qhs , Taking Pantoprazole Sodium 40 MG Tablet Delayed Release 1 tab(s) orally bid , Taking Zolpidem Tartrate 5 MG Tablet 1 tab(s) orally once a day (at bedtime) , Taking Aspirin 81 MG Tablet Chewable 1 tab(s) chewed once a day , Taking Multivitamin - Tablet 1 po once a day , Taking Lasix 20 MG Tablet 1 tab(s) orally once a day , Taking metFORMIN HCl 500 MG Tablet 1 tab(s) orally Qday , Taking ZyrTEC Allergy 10 MG Tablet 1 tab(s) orally Qday, PRN , Taking Azelastine HCl 137 MCG/SPRAY Solution 2 spray(s) intranasally 2 times a day Objective: * Vitals:? Assessment: * Assessment: 1.?Chronic rhinitis - J31.0? ?? Plan: * Treatment: * Billing Information: * Visit Code:? * Procedure Codes:? 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
--- OUTSIDE RECORDS SUMMARY | 2024-04-08 12:47 | XMS_ITS | Continuity of Care Document ---
Author Name [facility] Organization [facility] Care Team Providers Care Computer Aided Design Operator Name Role Phone [facility] Unavailable Unavailable Medications Combined list of outpatient medications from Department of Defense and Veterans Affairs facilities.Medications provided include 1) outpatient medications from the last 15 months, and 2) patient-reported medications. Medication Details Route Status Patient Instructions Prescription Expires Prescription Number Last Dispense Date Ordering Provider Order Date Order Qty Source ALPRAZolam 0.25 mg tablet 0.25 mg, Oral, # 60 EA, 0 total refill(s ), Hard Stop Oral (given by mouth) Complet ed 02/18/2024 60.0 Ambulat ory Pharmac y amLODIPine 2.5 mg tablet 2.5 mg, Oral, # 90 EA, 0 total refill(s ), Hard Stop Oral (given by mouth) Ordered 05/03/2024 90.0 Ambul at ory Pharmac y APIXABAN 5 MG ORAL TAB Take or use exactly as directed .Obtain advice for OTCs.Graciela ck with your doctor before becoming . Active 07/29/2024 [id number] 4 [address] [place] [address]) APIXABAN 5 MG ORAL TAB Take or use exactly as directed .Obtain advice for OTCs.Graciela ck with your doctor before becoming . Active 04/20/2024 [id number] 3 [address] [place] [address] Dom [facility]) APIXABAN 5 MG ORAL TAB Take or use exactly as directed .Obtain advice for OTCs.Graciela ck with your doctor before becoming . 01/29/2024 [id number] 3 [address] [place] [address] Dom [facility]) aspirin EC 81 mg tablet 81 mg, Oral, Daily, # 90 EA, 3 total refill(s ), Hard Stop Oral (given by mouth) Complet ed 10/14/2023 90.0 Ambulat ory Pharmac y atorvastati n (U/D) 80 MG ORAL TAB Take with food/mil k.Take or use exactly as directed .Obtain advice for OTCs.Do not take if .Avoid grapefru it and grapefru it juice. Active 06/07/2024 [id number] 4 [address] [place] [address]) atorvastati n 80 mg tablet See Instruct ions, # 90 EA, 3 total refill(s ), Hard Stop Ordered 06/07/2024 90.0 Ambul at ory Pharmac y Bystolic 10 mg tablet 10 mg, Oral, Daily, # 90 EA, 0 total refill(s ), Hard Stop Oral (given by mouth) Complet ed 10/14/2023 90.0 Ambulat ory Pharmac y carvedilol (U/D) 25 MG ORAL TAB May cause drowsine ss.Be careful if taking OTCs.John e with food/mil k.Take or use exactly as directed . Active 09/21/2024 [id number] 4 [address] [place] [address]) carvedilol (U/D) 25 MG ORAL TAB May cause drowsine ss.Be careful if taking OTCs.John e with food/mil k.Take or use exactly as directed . Active 06/28/2024 [id number] 4 [address] [place] [address]) carvedilol (U/D) 25 MG ORAL TAB May cause drowsine ss.Be careful if taking OTCs.John e with food/mil k.Take or use exactly as directed . 03/22/2024 [id number] 3 [address] [place] [address]) carvedilol 12.5 mg tablet See Instruct ions, Oral, # 180 EA, 0 total refill(s ), Hard Stop Oral (given by mouth) Complet ed 10/15/2023 180.0 Ambulat ory Pharmac y carvedilol 25 mg tablet See Instruct ions, # 180 EA, 0 total refill(s ), Hard Stop Complet ed 12/18/2023 180.0 Ambulat ory Pharmac y carvedilol 25 mg tablet 25 mg, Oral, BID, # 180 EA, 0 total refill(s ), Hard Stop Oral (given by mouth) Discont inued 12/29/2023 180.0 Ambulat ory Pharmac y carvedilol 25 mg tablet See Instruct ions, Oral, # 180 EA, 0 total refill(s ), Hard Stop Oral (given by mouth) Ordered 06/27/2024 180.0 Ambul at ory Pharmac y CITALOPRAM (U/D) 40 MG ORAL TAB May cause drowsine ss.Take or use exactly as directed .Obtain advice for OTCs. Active 07/29/2024 [id number] 4 [address] [place] [address]) CITALOPRAM (U/D) 40 MG ORAL TAB May cause drowsine ss.Take or use exactly as directed .Obtain advice for OTCs. Active 04/20/2024 [id number] 3 [address] [place] [address]) citalopram 40 mg tablet 40 mg, Oral, Daily, # 90 EA, 0 total refill(s ), Hard Stop Oral (given by mouth) Discont inued 11/02/2023 90.0 Ambulat ory Pharmac y citalopram 40 mg tablet 40 mg, Oral, Daily, # 90 EA, 1 total refill(s ), Hard Stop Oral (given by mouth) Complet ed 10/14/2023 90.0 Ambulat ory Pharmac y citalopram 40 mg tablet 40 mg, Oral, Daily, # 90 EA, 1 total refill(s ), Hard Stop Oral (given by mouth) Ordered 10/25/2024 90.0 Ambul at ory Pharmac y COZAAR (BRAND) 50 MG ORAL TAB Be careful if taking OTCs.John e or use exactly as directed .Do not take if . Active 07/14/2024 [id number] 4 [address] [place] [address]) dapaglifloz in 10 mg tablet 10 mg, Oral, Daily, # 90 EA, 3 total refill(s ), Hard Stop Oral (given by mouth) Ordered 02/07/2025 90.0 Ambul at ory Pharmac y diclofenac 1% gel [100g] See Instruct ions, # 100 g, 0 total refill(s ), Hard Stop Complet ed 03/11/2024 100.0 Ambulat ory Pharmac y Diclofenac Sodium 0.01mg/mg, Gel/Jelly, Topical Avoid exposure to sun.For external use.Do not take if . 03/11/2024 [id number] 3 [address] [place] [address]) doxycycline hyclate 100 mg tablet 100 mg, Oral, Daily, # 30 EA, 0 total refill(s ), Hard Stop Oral (given by mouth) Discont inued 04/07/2023 30.0 Ambulat ory Pharmac y Doxycycline Tablet 100mg Oral Finish the prescrip tion.John e with plenty of water.Av oid exposure to sun.Do not take if . Active 04/23/2024 [id number] 3 [address] [place] [address]) Doxycycline Tablet 100mg Oral Finish the prescrip tion.John e with plenty of water.Av oid exposure to sun.Do not take if . 03/10/2024 [id number] 3 [address] [place] [address]) Dulaglutide 1.5 mg/mL, Injection, 0.5mL Autoinjecto r refriger ateCheck with your doctor before becoming .Store in original package. Active 09/07/2024 [id number] 4 [address] [place] [address]) Dulaglutide 3 mg/mL, Injection, 0.5mL Autoinjecto r refriger ateCheck with your doctor before becoming .Store in original package. Active 10/04/2024 [id number] 4 [address] [place] [address]) Eliquis 5 mg tablet 5 mg, Oral, BID, # 180 EA, 0 total refill(s ), Hard Stop Oral (given by mouth) Discont inued 11/02/2023 180.0 Ambulat ory Pharmac y Eliquis 5 mg tablet 5 mg, Oral, BID, # 180 EA, 3 total refill(s ), Hard Stop Oral (given by mouth) Ordered 10/25/2024 180.0 Ambul at ory Pharmac y Entresto 24 mg-26 mg tablet = 1 tab(s), Oral, BID, # 180 EA, 3 total refill(s ), Hard Stop Oral (given by mouth) Ordered 02/07/2025 180.0 Ambul at ory Pharmac y estradiol 1 mg tablet 1 mg, Oral, Daily, # 90 EA, 1 total refill(s ), Hard Stop Oral (given by mouth) Ordered 10/25/2024 90.0 Ambul at ory Pharmac y estradiol 1 mg tablet See Instruct ions, # 90 EA, 3 total refill(s ), Hard Stop Complet ed 10/29/2023 90.0 Ambulat ory Pharmac y Fenofibrate (TriCor Eq.) Tablet 145 mg Oral Active 04/20/2024 [id number] 03/28 3 [address] [place] [address]) Fenofibrate (TriCor Eq.) Tablet 48 mg Oral Active 06/07/2024 [id number] 06/08 4 [address] [place] [address]) fenofibrate 48 mg tablet See Instruct ions, 0, # 270 EA, 3 total refill(s ), Hard Stop Discont inued 06/16/2023 270.0 Ambulat ory Pharmac y Fish Oil/[place] 3 Fatty Acids (Fish Oil Eq.) Capsule Conventiona l 1,000 mg Oral Take with food/mil k. Active 06/11/2024 [id number] 4 [address] [place] [address]) fluticasone 50 mcg/inh nasal spray [16g] 100 mcg, Nostril- Both, # 48 g, 3 total refill(s ), Hard Stop Nostri l-Both (into the nose) Ordered 02/01/2025 48.0 Ambul at ory Pharmac y furosemide 20 mg tablet 20 mg, Oral, Daily, # 90 EA, 1 total refill(s ), Hard Stop Oral (given by mouth) Discont inued 03/12/2023 90.0 Ambulat ory Pharmac y glipiZIDE 5 mg tablet See Instruct ions, Oral, # 90 EA, 0 total refill(s ), Hard Stop Oral (given by mouth) Ordered 05/12/2024 90.0 Ambul at ory Pharmac y INDAPAMIDE 2.5 MG ORAL TAB Take orange juice or banana.A void exposure to sun.Take or use exactly as directed . Active 09/02/2024 [id number] 4 [address] [place] [address]) INDAPAMIDE 2.5 MG ORAL TAB Take orange juice or banana.A void exposure to sun.Take or use exactly as directed . Active 06/08/2024 [id number] 4 [address] [place] [address]) INDAPAMIDE 2.5 MG ORAL TAB Take orange juice or banana.A void exposure to sun.Take or use exactly as directed . 03/10/2024 [id number] 3 [address] [place] [address]) indapamide 2.5 mg tablet 2.5 mg, Oral, Daily, # 90 EA, 0 total refill(s ), Hard Stop Oral (given by mouth) Discont inued 09/04/2023 90.0 Ambulat ory Pharmac y isosorbide dinitrate (U/D) 20 MG PO TAB Do not drink alcohol. Take or use exactly as directed . Active 07/14/2024 [id number] 4 [address] [place] [address]) isosorbide dinitrate 20 mg tablet 20 mg, Oral, BID, # 180 EA, 3 total refill(s ), Hard Stop Oral (given by mouth) Discont inued 07/28/2023 180.0 Ambulat ory Pharmac y latanoprost 0.005% eye drops [2.5mL] See dose instruct ions in comments , # 8 mL, 3 total refill(s ), Acute Complet ed 03/27/2023 7.5 Ambulat ory Pharmac y latanoprost 0.005% eye drops [2.5mL] = 1 drop(s), Eye-Both , # 8 mL, 4 total refill(s ), Hard Stop Both eyes Ordered 04/22/2024 7.5 Ambul at ory Pharmac y latanoprost 0.05mg/mL, Solution, Ophthalmic refriger ateFor the eye. Active 04/22/2024 [id number] [address] [place] [address]) losartan (U/D) 100 MG ORAL TAB Be careful if taking OTCs.John e or use exactly as directed .Do not take if . Active 06/08/2024 [id number] 4 [address] [place] [address]) losartan (U/D) 100 MG ORAL TAB Be careful if taking OTCs.John e or use exactly as directed .Do not take if . 03/22/2024 [id number] 3 [address] [place] [address]) losartan 100 mg tablet See Instruct ions, # 90 EA, 1 total refill(s ), Acute Complet ed 08/19/2023 90.0 Ambulat ory Pharmac y losartan 100 mg tablet 100 mg, Oral, Daily, # 90 EA, 1 total refill(s ), Hard Stop Oral (given by mouth) Discont inued 09/08/2023 90.0 Ambulat ory Pharmac y losartan 50 mg tablet 50 mg, Oral, Daily, # 90 EA, 3 total refill(s ), Hard Stop Oral (given by mouth) Discont inued 02/09/2024 90.0 Ambulat ory Pharmac y metFORMIN XR 500 mg/24 hour tablet 2000 mg, Oral, Daily, # 360 EA, 0 total refill(s ), Hard Stop Oral (given by mouth) Discont inued 11/02/2023 360.0 Ambulat ory Pharmac y nortriptyli ne (U/D) 25 MG ORAL CAP May cause drowsine ss.Avoid exposure to sun.Take or use exactly as directed .Obtain advice for OTCs. Active 07/29/2024 [id number] 4 [address] [place] [address]) nortriptyli ne (U/D) 25 MG ORAL CAP May cause drowsine ss.Avoid exposure to sun.Take or use exactly as directed .Obtain advice for OTCs. Active 04/20/2024 [id number] 3 [address] [place] [address]) nortriptyli ne (U/D) 25 MG ORAL CAP May cause drowsine ss.Avoid exposure to sun.Take or use exactly as directed .Obtain advice for OTCs. 01/29/2024 [id number] 3 [address] [place] [address]) nortriptyli ne 25 mg capsule 50 mg, Oral, every day at bedtime, # 180 EA, 0 total refill(s ), Hard Stop Oral (given by mouth) Ordered 04/20/2024 180.0 Ambul at ory Pharmac y nortriptyli ne 25 mg capsule 50 mg, Oral, every day at bedtime, # 180 EA, 0 total refill(s ), Hard Stop Oral (given by mouth) Complet ed 01/29/2024 180.0 Ambulat ory Pharmac y nortriptyli ne 25 mg capsule See Instruct ions, # 180 EA, 0 total refill(s ), Hard Stop Discont inued 01/07/2024 180.0 Ambulat ory Pharmac y omega-3-aci d ethyl esters 1000 mg capsule See Instruct ions, # 180 EA, 3 total refill(s ), Hard Stop Discont inued 06/16/2023 180.0 Ambulat ory Pharmac y omega-3-aci d ethyl esters 1000 mg capsule 1000 mg, Oral, Daily, # 180 EA, 3 total refill(s ), Hard Stop Oral (given by mouth) Ordered 06/11/2024 180.0 Ambul at ory Pharmac y pantoprazol e EC 40 mg tablet See Instruct ions, # 90 EA, 1 total refill(s ), Acute Discont inued 09/04/2023 90.0 Ambulat ory Pharmac y pantoprazol e EC 40 mg tablet 40 mg, Oral, Daily, # 90 EA, 1 total refill(s ), Hard Stop Oral (given by mouth) Ordered 03/10/2025 90.0 Ambul at ory Pharmac y pantoprazol e EC 40 mg tablet 40 mg, Oral, Daily, # 90 EA, 0 total refill(s ), Hard Stop Oral (given by mouth) Complet ed 03/04/2024 90.0 Ambulat ory Pharmac y potassium chloride ER [EQV Klor-Con M20] 20 mEq tablet 20 mEq, Oral, # 90 EA, 0 total refill(s ), Hard Stop Oral (given by mouth) Ordered 05/03/2024 90.0 Ambul at ory Pharmac y Ranolazine (Ranexa Eq.) Tablet 500 mg Oral Obtain advice for OTCs.May cause drowsine ss/dizzi ness.May impair driving. Swallow whole.Av oid grapefru it and grapefru it juice. Active 07/27/2024 [id number] 4 2023 180 [employer] [facility] ranolazine ER 500 mg/12 hour tablet See Instruct ions, # 180 EA, 3 total refill(s ), Hard Stop Ordered 07/27/2024 180.0 Ambul at ory Pharmac y Tricor 145 mg tablet 145 mg, Oral, Daily, # 90 EA, 0 total refill(s ), Hard Stop Oral (given by mouth) Discont inued 06/16/2023 90.0 Ambulat ory Pharmac y Tricor 145 mg tablet 145 mg, Oral, Daily, # 90 EA, 1 total refill(s ), Hard Stop Oral (given by mouth) Complet ed 10/14/2023 90.0 Ambulat ory Pharmac y Tricor 48 mg tablet See Instruct ions, # 90 EA, 3 total refill(s ), Hard Stop Ordered 02/11/2025 90.0 Ambul at ory Pharmac y Trulicity Pen 0.75 mg/0.5 mL [4EA=2mL] See Instruct ions, SubCutan eous, # 2 mL, 0 total refill(s ), Hard Stop Notes: refriger ate SubCut aneous (under the skin) Discont inued 12/04/2023 2.0 Ambulat ory Pharmac y Trulicity Pen 1.5 mg/0.5 mL [4EA=2mL] See Instruct ions, SubCutan eous, # 2 mL, 0 total refill(s ), Hard Stop Notes: refriger ate SubCut aneous (under the skin) Discont inued 12/04/2023 2.0 Ambulat ory Pharmac y Trulicity Pen 3 mg/0.5 mL [4EA=2mL] See Instruct ions, # 2 mL, 0 total refill(s ), Hard Stop Notes: refriger ate Discont inued 11/03/2023 2.0 Ambulat ory Pharmac y Trulicity Pen 4.5 mg/0.5 mL [4EA=2mL] See Instruct ions, SubCutan eous, # 2 mL, 0 total refill(s ), Hard Stop Notes: refriger ate SubCut aneous (under the skin) Complet ed 12/07/2023 2.0 Ambulat ory Pharmac y zolpidem 5 mg tablet 5 mg, Oral, # 90 EA, 0 total refill(s ), Hard Stop Oral (given by mouth) Ordered 04/29/2024 90.0 Ambul at ory Pharmac y zolpidem 5 mg tablet 5 mg, Oral, # 90 EA, 0 total refill(s ), Hard Stop Oral (given by mouth) Complet ed 10/19/2023 90.0 Ambulat ory Pharmac y zolpidem 5 mg tablet See Instruct ions, # 90 EA, 0 total refill(s ), Hard Stop Discont inued 11/02/2023 90.0 Ambulat ory Pharmac y Zolpidem Tartrate (Ambien Eq.) Tablet 5mg Oral May cause drowsine ss.[place] law prohibit s transfer of prescrip tion. 01/26/2024 [id number] 4 [address] [place] [address] Dom [facility] ([facility] Zolpidem Tartrate (Ambien Eq.) Tablet 5mg Oral May cause drowsine ss.[place] law prohibit s transfer of prescrip tion. 10/19/2023 [id number] 3 [address] [place] [address] Dom [facility] Zolpidem Tartrate (Ambien Eq.) Tablet 5mg Oral May cause drowsine ss.[place] law prohibit s transfer of prescrip tion. 07/28/2023 [id number] 3 2022 90 [address] [employer] [address] [facility] ([facility] Immunizations Combined list of available immunizations from the Department of Defense and Veterans Affairs facilities. Immunization Series Date Given Administered By Site Reaction Lot Number CVX Code Drug Section Chief Status Comments Source Influenza, injectable, MDCK, preservative free, quadrivalent 2019 ADRI[facility] FLETCHER () Not Given Influenza , injectabl e, MDCK, preservat jaswinder free, quadrival ent [facility] Vital Signs Combined list of inpatient and outpatient Vital Signs from Department of Defense and Veterans [facility], ranging from 12 months to all on record, depending upon the facility. Vital Sign Value Date Comments Source No data available for this section Ambulatory Pharmacy Procedures Combined list of: 1) Procedures from Department of Veterans Affairs facilities going back up to thelast 18 months, not all [place] non-surgical procedures are included; 2) All procedures from the Department of [facility] facilities. Procedure Procedure Type Code Date Perfomer Comments Sourc e No data available for this section Ambulatory P harmacy Social History Combined list of available smoking, tobacco, and other social history from Department of Defense and Veterans Affairs facilities. Social History Type Response Date Comment Sourc e This section is an empty social history section. [facility] Assessment and Plan Combined list of future care activities from Department of Defense and Veterans Affairs facilities (e.g., assessment and plan notes, appointments, orders, and referrals). Additional future care activities may be listed in the Plan of Care section. Result Assessment and Plan Date Source Assessment and Plan No data available for this section 04/08/2024 Ambulatory Pharmacy Functional Status Combined list of recent functional and cognitive assessments recorded at Department of Defense and [facility] Affairs ([place] Functional Declo Measurement (FIM) Scale: 1 = Total Assistance (Subject = 0% +), 2 = Maximal Assistance (Subject = 25% +), 3 = Moderate Assistance (Subject = 50% +), 4 = Minimal Assistance (Subject = 75% +), 5 = Supervision, 6 = Modified Declo (Device), 7 = Complete Declo (Timely, Safely). Assessment Date/Time Source Assessment Type Assessment Skill Assessment Score Assessment Details No data available for this section
[2024-04-08 13:15] LABS: Albumin Level 3.7 g/dL (3.4-5.0); Anion Gap 10 mmol/L (4-12); Blood Urea Nitrogen 36 mg/dL (7-18); Calcium 9.3 mg/dL (8.5-10.1); Carbon Dioxide 26 mmol/L (21-32); Chloride 105 mmol/L (98-108); Estimated Glomerular Filt Rate 33; Glucose 95 mg/dL (70-99); Osmolality Calculated 300 mOsm/kg (285-295); Phosphorus 4.1 mg/dL (2.6-4.7); Potassium 4.4 mmol/L (3.5-5.1); Sodium 141 mmol/L (136-145)
== END 2024-04-08 12:04 | disposition home or self-care (01) ==
LOC: CHSLAB 12:04
PROVIDERS: PCP Internal Medicine; Visit Provider Internal Medicine Nephrology
DX: N18.32 Chronic kidney disease, stage 3b (principal)
CPT/HCPCS: 36415; 80069

== ENCOUNTER 2024-06-24 09:57 | Outpatient (CLI) | payer OTHER, SELFPAY ==
[2024-06-24 10:20] LABS: Basophils Absolute Auto 0.03 K/mm3 (0.00-0.10); Basophils Percent Auto 0.5 % (0.0-1.0); Eosinophils Absolute Auto 0.16 K/mm3 (0.02-0.50); Eosinophils Percent Auto 2.8 % (1.0-6.0); Hematocrit 36.4 % (35.0-49.0); Hemoglobin 11.6 g/dL (12.0-15.0); Immature Granulocyte Absolute 0.01 K/mm3 (0.00-0.00); Immature Granulocyte Percent A 0.2 % (0.0-0.0); Lymphocytes Absolute Auto 1.16 K/mm3 (1.10-4.50); Lymphocytes Percent Auto 20.5 % (18.0-42.0); Mean Corpuscular HGB Conc 31.9 g/dL (32-36); Mean Corpuscular Hemoglobin 30.4 pg (27.0-31.0); Mean Corpuscular Volume 95.5 fL (78.0-102.0); Mean Platelet Volume 9.5 fl (9.2-11.8); Monocytes Absolute Auto 0.48 K/mm3 (0.10-0.90); Monocytes Percent Auto 8.5 % (2.0-11.0); Neutrophils Absolute Auto 3.81 K/mm3 (1.70-7.20); Neutrophils Percent Auto 67.5 % (50.0-70.0); Platelet Count Result 220 K/mm3 (150-420); Red Blood Count 3.81 M/mm3 (4.20-5.40); Red Cell Distribution Width 13.1 % (11.6-14.4); White Blood Count 5.7 K/mm3 (4.8-10.8)
[2024-06-24 10:22] LABS: Add Urine Microscopic? NO; Appearance Urine Clear (Clear); Bilirubin Urine Negative (Negative); Blood Urine Negative (Negative); Color Urine Light Yellow (Yellow); Glucose Urine UA Negative (Negative); Ketones Urine Negative (Negative); Leukocyte Esterase Ur Negative (Negative); Nitrate Urine Negative (Negative); Protein Urine Negative (Negative); Urobilinogen Urine 0.2 mg/dL (0.2-1.0); pH Urine 5.5 (5.0-8.0)
[2024-06-24 10:27] LABS: Creatinine Urine 133.01 mg/dL (40-278); MALB Creatinine Ratio 9.7 mg/g (0-30); Microalbumin Urine Random < 13.0 mg/L
[2024-06-24 10:30] LABS: Hemoglobin A1C 5.4 % (<5.7)
[2024-06-24 11:08] LABS: Alanine Aminotransferase 29 U/L (14-59); Albumin Level 3.8 g/dL (3.4-5.0); Alkaline Phosphatase 66 U/L (46-116); Anion Gap 9 mmol/L (4-12); Aspartate Amino Transferase 20 U/L (15-37); Bilirubin,Total 0.4 mg/dL (0.00-1.00); Blood Urea Nitrogen 25 mg/dL (7-18); Calcium 9.3 mg/dL (8.5-10.1); Carbon Dioxide 30 mmol/L (21-32); Chloride 105 mmol/L (98-108); Estimated Glomerular Filt Rate 31; Ferritin 94 ng/mL (8-252); Free T4 Free Thyroxine 1.19 ng/dL (0.76-1.46); Glucose 104 mg/dL (70-99); Iron 47 ug/dL (50-170); Osmolality Calculated 302 mOsm/kg (285-295); Potassium 4.2 mmol/L (3.5-5.1); Sodium 144 mmol/L (136-145); Thyroid Stimulating Hormone 2.48 uIU/mL (0.36-3.74); Total Protein 6.6 g/dL (6.4-8.2); Vitamin B12 666 pg/mL (193-986)
[2024-06-24 11:15] LABS: Free T3 2.06 pg/mL (2.18-3.98)
== END 2024-06-24 09:58 | disposition home or self-care (01) ==
LOC: CHSLAB 09:59
PROVIDERS: PCP Internal Medicine; Visit Provider Internal Medicine
DX: N18.32 Chronic kidney disease, stage 3b (principal); D84.9 Immunodeficiency, unspecified; E11.9 Type 2 diabetes mellitus without complications; D64.9 Anemia, unspecified; I47.29 Other ventricular tachycardia
CPT/HCPCS: 36415; 80053; 81003; 82043; 82607; 82728; 83036; 83540; 84439; 84443; 84481; 85025

== ENCOUNTER 2024-08-03 08:52 | Outpatient (CLI) | payer OTHER, SELFPAY ==
[2024-08-03 09:29] VITALS: BP 108/60; PULSE 50; RESP 18; TEMP 35.8; O2SAT 96; BMI 44.4
--- OUTSIDE RECORDS SUMMARY | 2024-08-03 09:36 | XMS_ITS | Clinical Summary ---
Author Organization [facility] [place] [address] Address [address] [place] [address] Care Team Providers Care Quality Assurance Auditor Name Role Phone Catracho Marshall MD Primary Care Provider + [phone] Allergies Active Allergy Reactions Criticality Noted Date Comments Wei Inhibitors Cough Low 11/10/2023 Isosorbide Mononitrate Headache Low 07/27/2023 Medications citalopram (CeleXA) 40 mg tablet Take 1 tablet (40 mg total) by mouth daily 10/16/19 23 Active estradioL (ESTRACE) 1 mg tablet Take 1 tablet (1 mg total) by mouth daily 10/30/19 23 Active aspirin 81 mg enteric coated tablet Take 1 tablet (81 mg total) by mouth daily 10/16/19 23 Active latanoprost (XALATAN) 0.005 % ophthalmic solution Administer 1 drop into both eyes nightly 10/22/19 23 Active nortriptyline (PAMELOR) 25 mg capsule Take 2 capsules (50 mg total) by mouth nightly 10/30/[address] (PROTONIX) 40 mg EC tablet Take 1 tablet (40 mg total) by mouth nightly 12/13/19 23 Active zolpidem (AMBIEN) 5 mg tablet Take 1 tablet (5 mg total) by mouth nightly 10/16/19 23 Active carvediloL (COREG) 25 mg tablet Take 1 tablet (25 mg total) by mouth 2 (two) times a day 12/19/19 23 Active multivitamin capsule Take 1 capsule by mouth daily Active Eliquis 5 mg tablet Take 1 tablet (5 mg total) by mouth 2 (two) times a day 04/22/20 23 Active glipiZIDE (GLUCOTROL) 5 mg tablet Take 0.5 tablets (2.5 mg total) by mouth daily 01/08/20 24 Active potassium chloride ER 20 mEq CR tablet 02/02/20 24 Active fluticasone propionate (FLONASE) 50 mcg/actuation nasal spray 02/02/20 24 Active amLODIPine (NORVASC) 2.5 mg tablet 02/02/20 24 Active ALPRAZolam (XANAX) 0.25 mg tablet 02/02/20 24 Active sacubitriL-valsartan (ENTRESTO) 24-26 mg tabletIndications:ch ronic heart failure Take 1 tablet by mouth 2 (two) times a day 180 tablet 3 02/08/20 24 Active dapagliflozin propanediol (FARXIGA) 10 mg tabletIndications:He art Failure Take 1 tablet (10 mg total) by mouth daily 90 tablet 3 02/08/20 24 Active sacubitriL-valsartan (ENTRESTO) 24-26 mg tabletIndications:ch ronic heart failure Take 1 tablet by mouth 2 (two) times a day 28 tablet 02/08/20 24 Active dapagliflozin propanediol (FARXIGA) 10 mg tablet Take 1 tablet (10 mg total) by mouth daily 7 tablet 02/08/20 24 Active fenofibrate nanocrystallized (TRICOR) 48 mg tablet Take 1 tablet (48 mg total) by mouth daily 90 tablet 3 02/12/20 24 Active atorvastatin (LIPITOR) 80 mg tablet Take 1 tablet (80 mg total) by mouth daily 90 tablet 3 05/18/19 25 026 Active omega-3 fatty acids (LOVAZA) 1 gram capsule Take 2 capsules (2 g total) by mouth daily 180 capsule 3 06/22/19 25 026 Active Mounjaro 2.5 mg/0.5 mL pen injector injection 06/16/19 25 Active Active Problems Problem Noted Date Diagnosed Date Transient ischemic attack (TIA) 10/28/2023 Sinus bradycardia 10/27/2023 NSVT (nonsustained ventricular tachycardia) 05/2023 PVC (premature ventricular contraction) 04/02/20 24 Coronary artery disease of n ative artery of [place] heart with stable angina pectoris 07/19/2023 Presence of electronic cardiac device 06/19/2023 Abnormal stress test 06/08/2023 Chest pain 06/08/2023 Status post placement of implantable loop record er 01/05/2023 Overview (01/05/2023): Med[employer]onic LNQ22 Loop Recorder. Dx; TIA, monitor for Afib. DOI 01/20/2023-Farah. Sotolink remote monitoring. Non-sustained ventricular tachycardia 01/02/2023 TIA (transient ischemic attack) 01/02/2023 Essential hypertension 01/02/2023 Dyslipidemia 01/02/2023 Encounters Date Type Department Care Team Description 07/04/2024 Orders Only [facility] Cardiology [facility] [address] [place] [address] Tiara Hartman MD 06/06/2024 Telephone [facility] Cardiology [facility] 8th [place] [address] [place] [address] Tiara Hartman MD 05/30/2024 Orders Only [facility] Cardiology [facility] [address] [place] [address] Tiara Hartman MD from Last 3 Months Surgical History Surgery Date Site/Laterality Comments CARDIAC CATHETERIZATION 06/19/2023 Medical History Medical History Date Comments Arrhythmia Diabetes mellitus (HCC) Hyperlipidemia Hypertension TIA (transient ischemic attack) Coronary artery disease Family History Medical History Relation Name Comments No Known Problems Brother Coronary artery disease Father Coronary artery disease Father's Brother Cancer Father's Sister Diabetes Father's Sister Thyroid disease Father's Sister Cancer Maternal Grandfather No Known Problems Maternal Grandmother Cancer Mother Cancer Mother's Brother Cancer Mother's Sister Heart disease Paternal Grandfather No Known Problems Paternal Grandmother Diabetes Sister Thyroid disease Sister Relation Name Status Comments Brother Father Father's Brother Father's Sister Maternal Grandfather Maternal Grandmother Mother Mother's Brother Mother's Sister Paternal Grandfather Paternal Grandmother Sister Social History Tobacco Use Types Packs/Day Years Used Date Smoking Tobacco: Former Cigarettes Q uit: 1996 Passive Smoke Exposure: Past Smokeless Tobacco: Never Tobacco Cessation:Counseling Given: Not Answered AUDIT-C Answer Date Recorded Q1: How often do you have a drink containing alcohol? Never 10/28/2023 Q2: How many drinks containi ng alcohol do you have on a typical day when you are drinking? Patient does not drink Q3: How often do you have si x or more drinks on one occasion? Never 10/28/2023 Personal Safety Answer Date Recorded Have you ever been in or are you currently in a harmful physical or emotional relationship or is someone making you feel afraid or unsafe? Denies 10/28/2023 Comments No Sex and Gender Information Value Date Recorded Sex Assigned at Not on file Legal Sex Female 1:33 PM CDT Gender Identity Not on file Sexual Orientation Not on file Obstetrics History Last Filed Vital Signs Vital Sign Reading Time Taken Comments Blood Pressure 144/81 02/08/2024 2:54 PM CDT Pulse 68 02/08/2024 2:54 PM CDT Temperature 36.4 C (97.6 F) 02/08/2024 2:54 PM CDT Respiratory Rate 25 10/28/2023 10:45 AM CDT Oxygen Saturation 94% 02/08/2024 2:54 PM CDT Inhaled Oxygen Concentration - - Weight 103 kg (227 lb) 02/08/2024 2:54 PM CDT Height 154.9 cm (5' 1 ) 02/08/2024 2:54 PM CDT Body Mass Index 42.89 02/08/2024 2:54 PM CDT Plan of Treatment Health Maintenance Due Date Last Done Comments Breast Cancer Screening-Mammogram 1962 Cervical Cancer Screening 1962 Colon Cancer Screening-Colonoscopy 1962 Depression Screening 1962 Hepatitis C Screening 1962 Hepatitis B Screening 1980 Regular Well Visit/Exam 18-64 1980 Zoster Vaccine (1 of 2) 2012 Covid-19 Vaccine (2023-2 5 season) 2023 04/08/2021, 07/25/2020, 06/27/2020 Influenza Vaccine (#1) 2023 2, 02/06/2021, 02/09/2019, Additional history exists Pneumococcal vaccine <65 (3 of 3 - PCV20 or PCV21) 02/10/2024 02/09/2019, 10/16/2017, 06/26/2017 DTaP/Tdap/Td Vaccine (2 - Td or Tdap) 06/27/2027 06/26/2017 Medical Devices Implanted Type Area Stock Clerk Device Identifier Shelf Expiration Date Model / Serial / Lot [employer] Monitor Lux-Dx Ii Insertable Brake Drum Molder [id number] - [id number] - [id number] Implanted:Qty: 1 on 10/28/2023 by Tiara Hartman MD at [facility] Implantable Loop Recorder [email or web address] 03/08/2025 [id number] / [id number] / [id number] Procedures Procedure Name Priority Date/Time Associated Diagnosis Comments DEVICE CHECK - REMOTE Routine 07/04/2024 6:01 PM CDT DEVICE CHECK - REMOTE Routine 05/30/2024 2:04 PM UNIT AIDE TECH from Last 3 Months Results * DEVICE CHECK - REMOTE (07/04/2024 6:01 PM CDT) Anatomical Region Laterality Modality Other 07/04/2024 6:01 PM CDT Narrative 07/07/2024 3:53 PM CDT Interpretation Summary: Battery and Leads (BL) Normal battery parameters Presenting Rhythm ([place]) Sinus Bradycardia Arrhythmic events (AE) No new arrhythmic events in monitoring period Transmission Information (TI) Implant indication: Cryptogenic Stroke Device Summary Report Procedure Note Tiara Hartman MD - 07/07/2024 Interpretation Summary: Battery and Leads (BL) Normal battery parameters Presenting Rhythm ([place]) Sinus Bradycardia Arrhythmic events (AE) No new arrhythmic events in monitoring period Transmission Information (TI) Implant indication: Cryptogenic Stroke Device Summary Report Tiara Hartman MD [facility] C[facility] SERVICES PROCEDURES Final Result * DEVICE CHECK - REMOTE (05/30/2024 2:04 PM UNIT AIDE TECH) Anatomical Region Laterality Modality Other 05/30/2024 2:04 PM UNIT AIDE TECH Narrative 06/08/2024 11:15 AM UNIT AIDE TECH Interpretation Summary: Battery and Leads (BL) Normal battery parameters Presenting Rhythm ([place]) Sinus Bradycardia Arrhythmic events (AE) No new arrhythmic events in monitoring period Anticoagulation (AC) Patient on anticoagulant therapy Patient prescribed Apixaban (Eliquis) Transmission Information (TI) Device Summary Report Follow Up (FU) Patient's primary treating physician will be apprised of findings Procedure Note Tiara Hartman MD - 06/08/2024 Interpretation Summary: Battery and Leads (BL) Normal battery parameters Presenting Rhythm ([place]) Sinus Bradycardia Arrhythmic events (AE) No new arrhythmic events in monitoring period Anticoagulation (AC) Patient on anticoagulant therapy Patient prescribed Apixaban (Eliquis) Transmission Information (TI) Device Summary Report Follow Up (FU) Patient's primary treating physician will be apprised of findings Tiara Hartman MD CV CARDIAC SERVICES PROCEDURES Final Result from Last 3 Months Insurance [facility] Subscriber Plan / Payer (Ef fective 2018-Present) Name:Delmar Hummel Relation to Subscriber:Self Name:Delmar Hummel Payer ID:[id number] (NAIC) Group ID:Not on file Type: Address: [place] [id number] Advance Directives For more information, please contact: [phone] * Full Code (Latest Code Status on File) Date Activated Date Inactivated Comments 07/01/2023 10:33 AM 07/01/2023 4:53 PM * Full Code Date Activated Date Inactivated Comments 06/19/2023 8:03 AM 06/20/2023 4:38 AM Care Teams Quality Assurance Auditor Relationship Specialty Start Date End Date Catracho Marshall MD [address] [place] [address] PCP - General Internal Medicine 12/05/22
--- OUTSIDE RECORDS SUMMARY | 2024-08-03 09:36 | XMS_ITS | Encounter Summary ---
Author Organization [facility] Address [address] [place] [address] Phone Care Team Providers Care Contract Project Manager Name Role Phone Catracho Marshall MD Primary Care Provider + [phone] Encounter Details Date Type Department Care Team (Latest Contact Info) Description 10/03/2022 Orders Only [facility] Crystal Barfield, JUDY [address] [facility] [address] [place] [address] Social History Tobacco Use Types Packs/Day Years Used Date Smoking Tobacco: Never Assessed Comments Unknown Sex and Gender Information Value Date Recorded Sex Assigned at Not on file Legal Sex Female 1:33 PM CDT Gender Identity Not on file Sexual Orientation Not on file documented as of this encounter Plan of Treatment Not on file documented as of this encounter Procedures Procedure Name Priority Date/Time Associated Diagnosis Comments CARDIOLOGY DOCUMENT SCAN 10/03/2022 SCAN - RADIOLOGY/IMAGING 10/02/2022 documented in this encounter Results * CARDIOLOGY DOCUMENT SCAN (10/03/2022) Anatomical Region Laterality Modality Other us Crystal Barfield RN [facility] P ROCEDURES Edited Result - Final * SCAN - RADIOLOGY/IMAGING (10/02/2022) Anatomical Region Laterality Modality Other us Provider Scanning Final Result documented in this encounter Visit Diagnoses Not on filedocumented in this encounter Care Teams Contract Project Manager Relationship Specialty Start Date End Date Catracho Marshall MD [address] [place] [address] PCP - General Internal Medicine 12/05/22 documented as of this encounter
--- OUTSIDE RECORDS SUMMARY | 2024-08-03 09:36 | XMS_ITS | Encounter Summary ---
Author Organization [facility] Address [address] [place] [address] Phone Care Team Providers Care Hha Name Role Phone Catracho Marshall MD Primary Care Provider + [phone] Encounter Details Date Type Department Care Team (Latest Contact Info) Description 04/03/2023 Orders Only [facility] Crystal Barfield, JUDY [address] [facility] [address] [place], [place] [id number] Social History Tobacco Use Types Packs/Day Years Used Date Smoking Tobacco: Former Cigarettes Q uit: 1996 Passive Smoke Exposure: Past Smokeless Tobacco: Never Personal Safety Answer Date Recorded Getting School Help Needed Not on file 04/07 Comments Unknown Sex and Gender Information Value Date Recorded Sex Assigned at Not on file Legal Sex Female 1:33 PM CDT Gender Identity Not on file Sexual Orientation Not on file documented as of this encounter Plan of Treatment Not on file documented as of this encounter Procedures Procedure Name Priority Date/Time Associated Diagnosis Comments CARDIOLOGY DOCUMENT SCAN 04/03/2023 documented in this encounter Results * CARDIOLOGY DOCUMENT SCAN (04/03/2023) Anatomical Region Laterality Modality Other us Crystal Barfield RN [facility] CARDI[facility] SERVICES P ROCEDURES Final Result documented in this encounter Visit Diagnoses Not on filedocumented in this encounter Care Teams Hha Relationship Specialty Start Date End Date Catracho Marshall MD [address] [place] [id number] PCP - General Internal Medicine 12/05/22 documented as of this encounter
--- OUTSIDE RECORDS SUMMARY | 2024-08-03 09:36 | XMS_ITS | Encounter Summary ---
Author Organization [facility] Address [address] [place] [address] Phone Care Team Providers Care Is Architect Name Role Phone Catracho Marshall MD Primary Care Provider + [phone] Encounter Details Date Type Department Care Team (Latest Contact Info) Description 12/14/2023 Orders Only [facility] Crystal Barfield, JUDY [address] [facility] [address] [place] [address] Social History Tobacco Use Types Packs/Day Years Used Date Smoking Tobacco: Former Cigarettes Q uit: 1996 Passive Smoke Exposure: Past Smokeless Tobacco: Never AUDIT-C Answer Date Recorded Q1: How often [...] Procedure Name Priority Date/Time Associated Diagnosis Comments SCAN - LABS 12/14/2023 documented in this encounter Results * SCAN - LABS (12/14/2023) us Crystal Barfield RN Final Result documented in this encounter Visit Diagnoses Not on filedocumented in this encounter Care Teams Is Architect Relationship Specialty Start Date End Date Catracho Marshall MD [address] [place], [place] [id number] PCP - General Internal Medicine 12/05/22 documented as of this encounter
--- OUTSIDE RECORDS SUMMARY | 2024-08-03 09:36 | XMS_ITS | Encounter Summary ---
Author Organization [facility] Address [address] [place] [address] Phone Care Team Providers Care Communications Program Manager Name Role Phone Catracho Marshall MD Primary Care Provider + [phone] Encounter Details Date Type Department Care Team (Latest Contact Info) Description 11/25/2022 Orders Only [facility] Crystal Barfield, JUDY [address] [facility] [address] [place], [place] [id number] Social History Tobacco Use Types Packs/Day Years [...] Date/Time Associated Diagnosis Comments CARDIOLOGY DOCUMENT SCAN 11/25/2022 documented in this encounter Results * CARDIOLOGY DOCUMENT SCAN (11/25/2022) Anatomical Region Laterality Modality Other Crystal Barfield RN [facility] CARDIAC SERVICES P ROCEDURES Final Result documented in this encounter Visit Diagnoses Not on filedocumented in this encounter Care Teams Communications Program Manager Relationship Specialty Start Date End Date Catracho Marshall MD [address] [place], [place] [id number] PCP - General Internal Medicine 12/05/22 documented as of this encounter
--- OUTSIDE RECORDS SUMMARY | 2024-08-03 09:36 | XMS_ITS | Encounter Summary ---
Author Organization [facility] Address [address] [place] [address] Phone Care Team Providers Care Evaluation Engineer Name Role Phone Catracho Marshall MD Primary Care Provider + [phone] Encounter Details Date Type Department Care Team (Latest Contact Info) Description 09/08/2005 Orders Only [facility] Crystal Barfield, JUDY [address] [facility] [address] [place] [address] Social History Tobacco Use Types Packs/Day Years [...] Priority Date/Time Associated Diagnosis Comments SCAN - RADIOLOGY/IMAGING 09/08/2005 documented in this encounter Results * SCAN - RADIOLOGY/IMAGING (09/08/2005) Anatomical Region Laterality Modality Other Crystal Barfield RN Edite d Result - Final documented in this encounter Visit Diagnoses Not on filedocumented in this encounter Care Teams Evaluation Engineer Relationship Specialty Start Date End Date Catracho Marshall MD [address] [place] [address] PCP - General Internal Medicine 12/05/22 documented as of this encounter
--- OUTSIDE RECORDS SUMMARY | 2024-08-03 09:36 | XMS_ITS | Encounter Summary ---
Author Organization [facility] Address [address] [place] [address] Phone Care Team Providers Care Instrument Tester Name Role Phone Catracho Marshall MD Primary Care Provider + [phone] Encounter Details Date Type Department Care Team (Latest Contact Info) Description 12/26/2021 Orders Only [facility] Scanning, Provider Social History Tobacco Use Types Packs/Day Years [...] Date/Time Associated Diagnosis Comments CARDIOLOGY DOCUMENT SCAN 12/26/2021 documented in this encounter Results * Cardiology Document Scan (12/26/2021) Anatomical Region Laterality Modality Other us Provider Scanning [facility] CARDIAC SERVICES PROCEDURES Final Result documented in this encounter Visit Diagnoses Not on filedocumented in this encounter Care Teams Instrument Tester Relationship Specialty Start Date End Date Catracho Marshall MD [address] [place] [address] PCP - General Internal Medicine 12/05/22 documented as of this encounter
--- OUTSIDE RECORDS SUMMARY | 2024-08-03 09:36 | XMS_ITS | Continuity of Care Document ---
Author Name [facility] Organization [facility] Care Team Providers Care Punch Press Setter Name Role Phone [facility] Unavailable Unavailable Medications Combined list of outpatient [...] Oral (given by mouth) Complet ed 02/18/2024 2023 60.0 Ambulat ory Pharmac y ALPRAZolam 0.25 mg tablet See Instruct ions, Oral, # 60 EA, 0 total refill(s ), Hard Stop Oral (given by mouth) Complet ed 06/25/2024 5 2024 60.0 Ambulat ory Pharmac y amLODIPine 2.5 mg tablet See Instruct ions, # 90 EA, 0 total refill(s ), Hard Stop Complet ed 07/23/2024 4 2024 90.0 Ambulat ory Pharmac y amLODIPine 2.5 mg tablet 2.5 mg, Oral, # 90 EA, 0 total refill(s ), Hard Stop Oral (given by mouth) Discont inued 04/25/2024 4 2023 90.0 Ambulat ory Pharmac y apixaban 5 mg tablet 5 mg, Oral, BID, # 180 EA, 3 total refill(s ), Hard Stop Oral (given by mouth) Ordered 10/25/2024 5 2024 180.0 Ambulat ory Pharmac y aspirin EC 81 mg tablet 81 mg, Oral, Daily, # 90 EA, 3 total refill(s ), Hard Stop Oral (given by mouth) Complet ed 10/14/2023 4 2023 90.0 Ambulat ory Pharmac y atorvastati n 80 mg tablet See Instruct ions, # 90 EA, 3 total refill(s ), Hard Stop Ordered 05/18/2025 5 2024 90.0 Ambulat ory Pharmac y atorvastati n 80 mg tablet See Instruct ions, # 90 EA, 3 total refill(s ), Hard Stop Discont inued 05/18/2024 4 2024 90.0 Ambulat ory Pharmac y Bystolic 10 mg tablet 10 mg, Oral, Daily, # 90 EA, 0 total refill(s ), Hard Stop Oral (given by mouth) Complet ed 10/14/2023 3 2023 90.0 Ambulat ory Pharmac y carvedilol 12.5 mg tablet See Instruct ions, Oral, # 180 EA, 0 total refill(s ), Hard Stop Oral (given by mouth) Complet ed 10/15/2023 3 2023 180.0 Ambulat ory Pharmac y carvedilol 25 mg tablet See Instruct ions, # 180 EA, 0 total refill(s ), Hard Stop Complet ed 12/18/2023 3 2023 180.0 Ambulat ory Pharmac y carvedilol 25 mg tablet 25 mg, Oral, BID, # 180 EA, 0 total refill(s ), Soft Stop Oral (given by mouth) Ordered 5 2024 180.0 Ambulat ory Pharmac y carvedilol 25 mg tablet 25 mg, Oral, BID, # 180 EA, 0 total refill(s ), Hard Stop Oral (given by mouth) Discont inued 12/29/2023 4 2023 180.0 Ambulat ory Pharmac y carvedilol 25 mg tablet See Instruct ions, # 180 EA, 0 total refill(s ), Hard Stop Complet ed 03/29/2024 4 2023 180.0 Ambulat ory Pharmac y carvedilol 25 mg tablet See Instruct ions, Oral, # 180 EA, 0 total refill(s ), Hard Stop Oral (given by mouth) Complet ed 06/27/2024 4 2024 180.0 Ambulat ory Pharmac y citalopram 40 mg tablet 40 mg, Oral, Daily, # 90 EA, 1 total refill(s ), Soft Stop Oral (given by mouth) Ordered 5 2024 90.0 Ambulat ory Pharmac y citalopram 40 mg tablet 40 mg, Oral, Daily, # 90 EA, 0 total refill(s ), Hard Stop Oral (given by mouth) Complet ed 07/23/2024 4 2024 90.0 Ambulat ory Pharmac y citalopram 40 mg tablet 40 mg, Oral, Daily, # 90 EA, 0 total refill(s ), Hard Stop Oral (given by mouth) Discont inued 11/02/2023 3 2023 90.0 Ambulat ory Pharmac y citalopram 40 mg tablet 40 mg, Oral, Daily, # 90 EA, 1 total refill(s ), Hard Stop Oral (given by mouth) Complet ed 10/14/2023 3 2023 90.0 Ambulat ory Pharmac y citalopram 40 mg tablet 40 mg, Oral, Daily, # 90 EA, 1 total refill(s ), Hard Stop Oral (given by mouth) Discont inued 04/25/2024 4 2023 90.0 Ambulat ory Pharmac y dapaglifloz in 10 mg tablet 10 mg, Oral, Daily, # 90 EA, 3 total refill(s ), Hard Stop Oral (given by mouth) Ordered 02/07/2025 4 2023 90.0 Ambulat ory Pharmac y diclofenac 1% gel [100g] See Instruct ions, # 100 g, 0 total refill(s ), Hard Stop Complet ed 03/11/2024 3 2023 100.0 Ambulat ory Pharmac y doxycycline hyclate 100 mg tablet 100 mg, Oral, Daily, # 30 EA, 0 total refill(s ), Hard Stop Oral (given by mouth) Discont inued 04/07/2023 3 2022 30.0 Ambulat ory Pharmac y doxycycline hyclate 100 mg tablet 100 mg, Oral, Daily, # 90 EA, 0 total refill(s ), Hard Stop Oral (given by mouth) Discont inued 09/08/2023 4 2023 90.0 Ambulat ory Pharmac y Eliquis 5 mg tablet 5 mg, Oral, BID, # 180 EA, 0 total refill(s ), Hard Stop Oral (given by mouth) Discont inued 11/02/2023 3 2023 180.0 Ambulat ory Pharmac y Entresto 24 mg-26 mg tablet = 1 tab(s), Oral, BID, # 180 EA, 3 total refill(s ), Hard Stop Oral (given by mouth) Ordered 02/07/2025 5 2024 180.0 Ambulat ory Pharmac y estradiol 1 mg tablet 1 mg, Oral, Daily, # 90 EA, 1 total refill(s ), Soft Stop Oral (given by mouth) Ordered 5 2024 90.0 Ambulat ory Pharmac y estradiol 1 mg tablet 1 mg, Oral, Daily, # 90 EA, 0 total refill(s ), Hard Stop Oral (given by mouth) Complet ed 07/23/2024 4 2024 90.0 Ambulat ory Pharmac y estradiol 1 mg tablet 1 mg, Oral, Daily, # 90 EA, 1 total refill(s ), Hard Stop Oral (given by mouth) Discont inued 04/25/2024 4 2023 90.0 Ambulat ory Pharmac y estradiol 1 mg tablet See Instruct ions, # 90 EA, 3 total refill(s ), Hard Stop Complet ed 10/29/2023 4 2023 90.0 Ambulat ory Pharmac y fenofibrate 48 mg tablet See Instruct ions, 0, # 270 EA, 3 total refill(s ), Hard Stop Discont inued 06/16/2023 4 2023 270.0 Ambulat ory Pharmac y fenofibrate 48 mg tablet See Instruct ions, # 90 EA, 3 total refill(s ), Hard Stop Ordered 02/11/2025 5 2024 90.0 Ambulat ory Pharmac y ferrous sulfate 325 mg tablet See Instruct ions, Oral, # 90 EA, 0 total refill(s ), Soft Stop Oral (given by mouth) Ordered 5 2024 90.0 Ambulat ory Pharmac y fluticasone 50 mcg/inh nasal spray [16g] 100 mcg, Nostril- Both, # 48 g, 3 total refill(s ), Hard Stop Nostri l-Both (into the nose) Ordered 02/01/2025 4 2023 48.0 Ambulat ory Pharmac y Freestyle [place] Lite Monitor See Instruct ions, # 1 EA, 0 total refill(s ), Soft Stop Ordered 5 2024 1.0 Ambulat ory Pharmac y furosemide 20 mg tablet 20 mg, Oral, Daily, # 90 EA, 1 total refill(s ), Hard Stop Oral (given by mouth) Discont inued 03/12/2023 3 2022 90.0 Ambulat ory Pharmac y glipiZIDE 5 mg tablet See Instruct ions, # 90 EA, 0 total refill(s ), Hard Stop Ordered 08/16/2024 5 2024 90.0 Ambulat ory Pharmac y glipiZIDE 5 mg tablet See Instruct ions, Oral, # 90 EA, 0 total refill(s ), Hard Stop Oral (given by mouth) Complet ed 05/12/2024 4 2024 90.0 Ambulat ory Pharmac y glucose test strip (freestyle lite) See Instruct ions, # 100 EA, 3 total refill(s ), Soft Stop Ordered 5 2024 100.0 Ambulat ory Pharmac y indapamide 2.5 mg tablet 2.5 mg, Oral, Daily, # 90 EA, 0 total refill(s ), Hard Stop Oral (given by mouth) Discont inued 09/04/2023 3 2023 90.0 Ambulat ory Pharmac y indapamide 2.5 mg tablet See Instruct ions, # 90 EA, 0 total refill(s ), Hard Stop Discont inued 12/04/2023 4 2023 90.0 Ambulat ory Pharmac y indapamide 2.5 mg tablet See Instruct ions, # 90 EA, 0 total refill(s ), Hard Stop Discont inued 09/04/2023 4 2023 90.0 Ambulat ory Pharmac y indapamide 2.5 mg tablet 2.5 mg, Oral, # 90 EA, 0 total refill(s ), Hard Stop Oral (given by mouth) Discont inued 01/18/2024 4 2023 90.0 Ambulat ory Pharmac y ipratropium 42 mcg/inh nasal spray [15mL] See Instruct ions, # 45 mL, 0 total refill(s ), Soft Stop Ordered 5 2024 45.0 Ambulat ory Pharmac y isosorbide dinitrate 20 mg tablet 20 mg, Oral, BID, # 180 EA, 3 total refill(s ), Hard Stop Oral (given by mouth) Discont inued 07/28/2023 4 2023 180.0 Ambulat ory Pharmac y lancet freestyle 28g See Instruct ions, # 100 EA, 3 total refill(s ), Soft Stop Ordered 5 2024 100.0 Ambulat ory Pharmac y latanoprost 0.005% eye drops [2.5mL] See Instruct ions, # 7.5 mL, 4 total refill(s ), Hard Stop Ordered 04/22/2025 4 2023 7.5 Ambulat ory Pharmac y latanoprost 0.005% eye drops [2.5mL] See dose instruct ions in comments , # 8 mL, 3 total refill(s ), Acute Complet ed 03/27/2023 09/26/202 3 2022 7.5 Ambulat ory Pharmac y latanoprost 0.005% eye drops [2.5mL] = 1 drop(s), Eye-Both , # 8 mL, 4 total refill(s ), Hard Stop Both eyes Complet ed 04/22/2024 4 2023 7.5 Ambulat ory Pharmac y losartan 100 mg tablet See Instruct ions, # 90 EA, 1 total refill(s ), Acute Complet ed 08/19/2023 3 2023 90.0 Ambulat ory Pharmac y losartan 100 mg tablet 100 mg, Oral, Daily, # 90 EA, 1 total refill(s ), Hard Stop Oral (given by mouth) Discont inued 09/08/2023 3 2023 90.0 Ambulat ory Pharmac y losartan 50 mg tablet 50 mg, Oral, Daily, # 90 EA, 3 total refill(s ), Hard Stop Oral (given by mouth) Discont inued 02/09/2024 4 2023 90.0 Ambulat ory Pharmac y metFORMIN XR 500 mg/24 hour tablet 2000 mg, Oral, Daily, # 360 EA, 0 total refill(s ), Hard Stop Oral (given by mouth) Discont inued 11/02/2023 4 2023 360.0 Ambulat ory Pharmac y metFORMIN XR 500 mg/24 hour tablet 2000 mg, Oral, Daily, # 360 EA, 0 total refill(s ), Hard Stop Oral (given by mouth) Discont inued 09/04/2023 3 2023 360.0 Ambulat ory Pharmac y metFORMIN XR 500 mg/24 hour tablet 2000 mg, Oral, Daily, # 360 EA, 0 total refill(s ), Hard Stop Oral (given by mouth) Discont inued 01/18/2024 4 2023 360.0 Ambulat ory Pharmac y Mounjaro 2.5 mg/0.5 mL inj-pen [4pens/2mL] 2.5 mg, SubCutan eous, every week, # 2 mL, 0 total refill(s ), Hard Stop SubCut aneous (under the skin) Complet ed 07/08/2024 5 2024 2.0 Ambulat ory Pharmac y nortriptyli ne 25 mg capsule 50 mg, Oral, every day at bedtime, # 180 EA, 0 total refill(s ), Hard Stop Oral (given by mouth) Complet ed 04/20/2024 3 2023 180.0 Ambulat ory Pharmac y nortriptyli ne 25 mg capsule 50 mg, Oral, every day at bedtime, # 180 EA, 0 total refill(s ), Hard Stop Oral (given by mouth) Complet ed 01/29/2024 3 2023 180.0 Ambulat ory Pharmac y nortriptyli ne 25 mg capsule See Instruct ions, # 180 EA, 0 total refill(s ), Hard Stop Discont inued 01/07/2024 4 2023 180.0 Ambulat ory Pharmac y nortriptyli ne 25 mg capsule See Instruct ions, # 180 EA, 0 total refill(s ), Hard Stop Complet ed 10/29/2023 3 2023 180.0 Ambulat ory Pharmac y omega-3-aci d ethyl esters 1000 mg capsule 2000 mg, Oral, Daily, # 180 EA, 3 total refill(s ), Soft Stop Oral (given by mouth) Ordered 5 2024 180.0 Ambulat ory Pharmac y omega-3-aci d ethyl esters 1000 mg capsule See Instruct ions, # 180 EA, 3 total refill(s ), Hard Stop Discont inued 06/16/2023 4 2023 180.0 Ambulat ory Pharmac y omega-3-aci d ethyl esters 1000 mg capsule 1000 mg, Oral, Daily, # 180 EA, 3 total refill(s ), Hard Stop Oral (given by mouth) Complet ed 06/11/2024 4 2024 180.0 Ambulat ory Pharmac y pantoprazol e EC 40 mg tablet See Instruct ions, # 90 EA, 1 total refill(s ), Acute Discont inued 09/04/2023 3 2023 90.0 Ambulat ory Pharmac y pantoprazol e EC 40 mg tablet 40 mg, Oral, Daily, # 90 EA, 0 total refill(s ), Hard Stop Oral (given by mouth) Discont inued 12/04/2023 4 2023 90.0 Ambulat ory Pharmac y pantoprazol e EC 40 mg tablet See Instruct ions, # 90 EA, 0 total refill(s ), Hard Stop Discont inued 09/04/2023 4 2023 90.0 Ambulat ory Pharmac y pantoprazol e EC 40 mg tablet 40 mg, Oral, Daily, # 90 EA, 1 total refill(s ), Hard Stop Oral (given by mouth) Ordered 03/10/2025 5 2024 90.0 Ambulat ory Pharmac y pantoprazol e EC 40 mg tablet 40 mg, Oral, Daily, # 90 EA, 0 total refill(s ), Hard Stop Oral (given by mouth) Complet ed 03/04/2024 4 2023 90.0 Ambulat ory Pharmac y potassium chloride ER [EQV Klor-Con M20] 20 mEq tablet 20 mEq, Oral, # 90 EA, 0 total refill(s ), Hard Stop Oral (given by mouth) Complet ed 05/03/2024 4 2024 90.0 Ambulat ory Pharmac y ranolazine ER 500 mg/12 hour tablet See Instruct ions, # 180 EA, 3 total refill(s ), Hard Stop Complet ed 07/27/2024 4 2024 180.0 Ambulat ory Pharmac y tirzepatide (Mounjaro) 5 mg/0.5 mL inj-pen [4pens/2mL] See Instruct ions, # 2 mL, 0 total refill(s ), Soft Stop Notes: refriger ate Ordered 5 2024 2.0 Ambulat ory Pharmac y Tricor 145 mg tablet 145 mg, Oral, Daily, # 90 EA, 0 total refill(s ), Hard Stop Oral (given by mouth) Discont inued 06/16/2023 3 2023 90.0 Ambulat ory Pharmac y Tricor 145 mg tablet 145 mg, Oral, Daily, # 90 EA, 1 total refill(s ), Hard Stop Oral (given by mouth) Complet ed 10/14/2023 3 2023 90.0 Ambulat ory Pharmac y Trulicity Pen 0.75 mg/0.5 mL [4EA=2mL] See Instruct ions, SubCutan eous, # 2 mL, 0 total refill(s ), Hard Stop Notes: refriger ate SubCut aneous (under the skin) Discont inued 12/04/2023 4 2023 2.0 Ambulat ory Pharmac y Trulicity Pen 1.5 mg/0.5 mL [4EA=2mL] See Instruct ions, SubCutan eous, # 2 mL, 0 total refill(s ), Hard Stop Notes: refriger ate SubCut aneous (under the skin) Discont inued 12/04/2023 4 2023 2.0 Ambulat ory Pharmac y Trulicity Pen 3 mg/0.5 mL [4EA=2mL] See Instruct ions, # 2 mL, 0 total refill(s ), Hard Stop Notes: refriger ate Discont inued 11/03/20232023 2.0 Ambulat ory Pharmac y Trulicity Pen 4.5 mg/0.5 mL [4EA=2mL] See Instruct ions, SubCutan eous, # 2 mL, 0 total refill(s ), Hard Stop Notes: refriger ate SubCut aneous (under the skin) Complet ed 12/07/2023 4 2023 2.0 Ambulat ory Pharmac y zolpidem 5 mg tablet 5 mg, Oral, # 90 EA, 0 total refill(s ), Soft Stop Oral (given by mouth) Ordered 2024 90.0 Ambulat ory Pharmac y zolpidem 5 mg tablet 5 mg, Oral, # 90 EA, 0 total refill(s ), Hard Stop Oral (given by mouth) Discont inued 04/25/2024 2023 90.0 Ambulat ory Pharmac y zolpidem 5 mg tablet 5 mg, Oral, # 90 EA, 0 total refill(s ), Hard Stop Oral (given by mouth) Ordered 10/20/2024 2023 90.0 Ambulat ory Pharmac y zolpidem 5 mg tablet 5 mg, Oral, # 90 EA, 0 total refill(s ), Hard Stop Oral (given by mouth) Complet ed 10/19/2023 4 2023 90.0 Ambulat ory Pharmac y zolpidem 5 mg tablet 5 mg, Oral, every day at bedtime, # 90 EA, 0 total refill(s ), Hard Stop Oral (given by mouth) Complet ed 07/28/2023 3 2023 90.0 Ambulat ory Pharmac y zolpidem 5 mg tablet 5 mg, Oral, # 90 EA, 0 total refill(s ), Hard Stop Oral (given by mouth) Complet ed 04/12/2023 3 2022 90.0 Ambulat ory Pharmac y zolpidem 5 mg tablet See Instruct ions, # 90 EA, 0 total refill(s ), Hard Stop Discont inued 11/02/2023 4 2023 90.0 Ambulat ory Pharmac y zolpidem 5 mg tablet 5 mg, Oral, # 90 EA, 0 total refill(s ), Hard Stop Oral (given by mouth) Complet ed 01/25/2024 4 2023 90.0 Ambulat ory Pharmac y Procedures Combined list of: 1) Procedures from Department of [facility] not all [facility] non-surgical procedures are included; 2) All procedures from the Department of Defense facilities. Procedure Procedure Type Code Date Perfomer Comments Sourc e No data available for this section Ambulatory P harmacy Assessment and Plan Combined list of future care activities from Department of Defense and Veterans Affairs facilities (e.g., assessment and plan notes, appointments, orders, and referrals). Additional future care activities may be listed in the Plan of Care section. Result Assessment and Plan Date Source Assessment and Plan No data available for this section 08/03/2024 Ambulatory Pharmacy Functional Status Combined list of recent functional and cognitive assessments recorded at Department of Defense and Veterans Affairs ([place]).VA Functional Canadian Measurement (FIM) Scale: 1 = Total Assistance (Subject = 0% +), 2 = Maximal Assistance (Subject = 25% +), 3 = Moderate Assistance (Subject = 50% +), 4 = Minimal Assistance (Subject = 75% +), 5 = Supervision, 6 = Modified Canadian (Device), 7 = Complete Canadian (Timely, Safely). Assessment Date/Time Source Assessment Type Assessment Skill Assessment Score Assessment Details No data available for this section
--- OUTSIDE RECORDS SUMMARY | 2024-08-03 09:36 | XMS_ITS | Referral Summary ---
Author Organization [facility] [address] Address [address] [place] [address] Care Team Providers Care Direct Care Counselor Name Role Phone Catracho Marshall MD Primary Care Provider + [phone] Encounters Date Type Department Care Team Description 07/04/2024 Orders Only [facility] Building [address] [place] [address] Tiara Hartman MD 06/06/2024 Telephone [facility] [address] [facility] 8th [place] [address] [place] [phone] Tiara Hartman MD 05/30/2024 Orders Only [facility] [address] [facility] Office Building [address] [place] [id number] Tiara Hartman MD from Last 3 Months Allergies Active Allergy Reactions Criticality Noted Date [...] mouth daily 180 capsule 3 06/22/19 25 Active Mounjaro 2.5 mg/0.5 mL pen injector injection 06/16/19 Active Active Problems Problem Noted Date Diagnosed Date Transient ischemic attack (TIA) 10/28/2023 Sinus bradycardia 10/27/2023 NSVT (nonsustained ventricular tachycardia) 05/2023 PVC (premature ventricular contraction) 07/28/19 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 Dx; TIA, monitor for Afib. DOI 01/20/2023-[place]. Non-sustained ventricular tachycardia 01/02/2023 TIA (transient ischemic attack) 01/02/2023 Essential hypertension 01/02/2023 Dyslipidemia 01/02/2023 Social History Tobacco Use Types Packs/Day Years [...] on file Sexual Orientation Not on file Last Filed Vital Signs Vital Sign Reading [...] 02/08/2024 2:54 PM CDT Plan of Treatment Not on file Medical Devices Implanted Type Area Surveillance Dual Rate Officer Device Identifier Shelf Expiration Date Model / Serial / Lot [employer] App Monitor Lux-Dx Ii Insertable Horse Trekking Guide [id number] - [id number] - [id number] Implanted:Qty: 1 on 10/28/2023 by Tiara Hartman MD at [facility] Implantable Loop Recorder [employer] App 03/08/2025 [id number] / [id number] / [id number] Procedures Procedure Name Priority Date/Time Associated Diagnosis Comments DEVICE CHECK - REMOTE Routine 07/04/2024 6:01 PM CDT DEVICE CHECK - REMOTE Routine 05/30/2024 2:04 PM VENDOR REPRESENTATIVES from Last 3 Months Results * DEVICE CHECK - REMOTE (07/04/2024 6:01 PM CDT) Anatomical Region Laterality Modality Other 07/04/2024 6:01 PM CDT Narrative 07/07/2024 3:53 PM CDT Interpretation Summary: Battery and Leads (BL) Normal battery parameters Presenting Rhythm (GA) Sinus Bradycardia Arrhythmic events (AE) No new arrhythmic events in monitoring period Transmission Information (TI) Implant indication: Cryptogenic Stroke Device Summary Report Procedure Note Tiara Hartman MD - 07/07/2024 Interpretation Summary: Battery and Leads (BL) Normal battery parameters Presenting Rhythm (GA) Sinus Bradycardia Arrhythmic events (AE) No new arrhythmic events in monitoring period Transmission Information (TI) Implant indication: Cryptogenic Stroke Device Summary Report Tiara Hartman MD [facility] PROCEDURES Final Result * DEVICE CHECK - REMOTE (05/30/2024 2:04 PM VENDOR REPRESENTATIVES) Anatomical Region Laterality Modality Other 05/30/2024 2:04 PM VENDOR REPRESENTATIVES Narrative 06/08/2024 11:15 AM VENDOR REPRESENTATIVES Interpretation Summary: Battery and Leads (BL) Normal battery parameters Presenting Rhythm (GA) Sinus Bradycardia Arrhythmic events (AE) No new arrhythmic events in monitoring period Anticoagulation (AC) Patient on anticoagulant therapy Patient prescribed Apixaban (Eliquis) Transmission Information (TI) Device Summary Report Follow Up (FU) Patient's primary treating physician will be apprised of findings Procedure Note Tiara Hartman MD - 06/08/2024 Interpretation Summary: Battery and Leads (BL) Normal battery parameters Presenting Rhythm (GA) Sinus Bradycardia Arrhythmic events (AE) No new arrhythmic events in monitoring period Anticoagulation (AC) Patient on anticoagulant therapy Patient prescribed Apixaban (Eliquis) Transmission Information (TI) Device Summary Report Follow Up (FU) Patient's primary treating physician will be apprised of findings Tiara Hartman MD [facility] PROCEDURES Final Result from Last 3 Months Insurance [facility] [id number] [place] [phone] [place] [phone] [place] [address] Advance Directives For more information, please contact: [phone] * Full Code (Latest Code Status on File) Date Activated Date Inactivated Comments 07/01/2023 10:33 AM 07/01/2023 4:53 PM * Full Code Date Activated Date Inactivated Comments 06/19/2023 8:03 AM 06/20/2023 4:38 AM Care Teams Direct Care Counselor Relationship Specialty Start Date End Date Catracho Marshall MD [address] [place] [address] PCP - General Internal Medicine 12/05/22
--- OUTSIDE RECORDS SUMMARY | 2024-08-03 09:36 | XMS_ITS | Encounter Summary ---
Author Organization [facility] Address [address] [place] [address] Phone Care Team Providers Care Avionics Engineer Name Role Phone Catracho Marshall MD Primary Care Provider + [phone] Encounter Details Date Type Department Care Team (Latest Contact Info) Description 02/23/2023 Orders Only [facility] Crystal Barfield, JUDY [address] [facility] [address] [place], [place] [id number] Social History Tobacco Use Types Packs/Day Years Used Date Smoking Tobacco: Former Cigarettes Q uit: 1996 Passive Smoke Exposure: Past Smokeless Tobacco: Never Comments Unknown Sex and Gender Information Value Date Recorded Sex Assigned at Not on file Legal Sex Female 1:33 PM CDT Gender Identity Not on file Sexual Orientation Not on file documented as of this encounter Plan of Treatment Not on file documented as of this encounter Procedures Procedure Name Priority Date/Time Associated Diagnosis Comments SCAN - LABS 02/23/2023 documented in this encounter Results * SCAN - LABS (02/23/2023) us Crystal Barfield RN Final Result documented in this encounter Visit Diagnoses Not on filedocumented in this encounter Care Teams Avionics Engineer Relationship Specialty Start Date End Date Catracho Marshall MD [address] [place] [address] PCP - General Internal Medicine 12/05/22 documented as of this encounter
--- OUTSIDE RECORDS SUMMARY | 2024-08-03 09:36 | XMS_ITS | Encounter Summary ---
Author Organization [facility] Address [address] [place] [address] Phone Care Team Providers Care Reimbursement Representative Name Role Phone Catracho Marshall MD Primary Care Provider + [phone] Encounter Details Date Type Department Care Team (Latest Contact Info) Description 01/06/2024 Orders Only [facility] Crystal Barfield, JUDY [address] [facility] [address] [place] [address] Social History Tobacco Use Types Packs/Day Years [...] Date/Time Associated Diagnosis Comments SCAN - LABS 01/06/2024 documented in this encounter Results * SCAN - LABS (01/06/2024) us Crystal Barfield RN Final Result documented in this encounter Visit Diagnoses Not on filedocumented in this encounter Care Teams Reimbursement Representative Relationship Specialty Start Date End Date Catracho Marshall MD [address] [place], [place] [id number] PCP - General Internal Medicine 12/05/22 documented as of this encounter
--- OUTSIDE RECORDS SUMMARY | 2024-08-03 09:36 | XMS_ITS | Clinical Summary ---
Author Organization [facility] Address [address] [place] [address] Care Team Providers Care Casino Cage Supervisor Name Role Phone Unavailable Primary Care Provider Unavailabl e Social History Tobacco Use Types Packs/Day Years Used Date Smoking Tobacco: Never Comments Unknown Sex and Gender Information Value Date Recorded Sex Assigned at Not on file Legal Sex Female 9:27 PM CDT Gender Identity Not on file Sexual Orientation Not on file Last Filed Vital Signs Vital Sign Reading Time Taken Comments Blood Pressure - - Pulse - - Temperature - - Respiratory Rate - - Oxygen Saturation - - Inhaled Oxygen Concentration - - Weight 100.7 kg (222 lb) 03/13/2008 11:31 AM 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 Height 157.5 cm (5' 2 ) 03/13/2008 11:31 AM 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 Body Mass Index 40.6 03/13/2008 11:31 AM 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 Plan of Treatment Health Maintenance Due Date Last Done Comments Cervical Cancer Screening Pa p Smear (Age 30 to 64) Every 3 Years 1962 Colorectal Cancer Screening Colonoscopy (10 Years) 1962 Annual Physical 1965 Hepatitis C 1980 DTaP, Tdap and Td Vaccines ( 1 - Tdap) 1981 Cervical Cancer Screening Pa p with HPV Testing (Age 30 to 64) Every 5 Years 1992 Cervical Cancer Screening with HPV 1992 Mammogram Screening 2002 Zoster Vaccines (1 of 2) 2012 COVID-19 Vaccine ( - 2023-2 5 season) 2023 RSV Immunization or 60+ Years (1 - 1-dose 75+ series) 2037 Meningococcal B Vaccine Aged Out No l onger eligible based on patient's age to complete this topic Meningococcal Vaccine Aged Out No agustin bipin eligible based on patient's age to complete this topic Pneumococcal Vaccine: Pediat rics (0 to 5 Years) and At-Risk Patients (6 to 64 Years) Aged Out No longer eligible b ased on patient's age to complete this topic RSV Immunizations Under 20 Months Aged Out No longer eligible based on patient's age to complete this topic
[2024-08-03] MEDS: IRON SUCROSE COMPLEX 200 MG, IRON SUCROSE COMPLEX 100 MG in SODIUM CHLORIDE 0.9% IV 250 ML 125 MG IVPB (09:38)
== END 2024-08-03 08:53 | disposition home or self-care (01) ==
PROVIDERS: PCP Internal Medicine; Visit Provider Internal Medicine
DX: D50.9 Iron deficiency anemia, unspecified (principal)
CPT/HCPCS: 96365; 96366; J1756; J7050

== ENCOUNTER 2024-08-15 09:00 | Outpatient (CLI) | payer OTHER, SELFPAY ==
[2024-08-15 09:20] VITALS: BP 150/76; PULSE 70; RESP 20; TEMP 36.2; O2SAT 96; BMI 44.1
[2024-08-15] MEDS: IRON SUCROSE COMPLEX 300 MG in SODIUM CHLORIDE 0.9% IV 235 ML 125 MG IVPB (09:37)
--- OUTSIDE RECORDS SUMMARY | 2024-08-15 09:52 | XMS_ITS | Continuity of Care Document ---
Author Name [facility] Organization [facility] Care Team Providers Care Software Security Architect Name Role Phone [facility] Unavailable Unavailable Medications Combined list of outpatient [...] 04/25/2024 2023 90.0 Ambulat ory Pharmac y APIXABAN 5 MG ORAL TAB Take or use exactly as directed .Obtain advice for OTCs.Graciela ck with your doctor before becoming . 07/29/2024 [id number] 2023 180 [employer] [facility] ([facility] apixaban 5 mg tablet 5 mg, Oral, [...] .Avoid grapefru it and grapefru it juice. 06/07/2024 [id number] 4 [address] [place] [address] [facility] ([facility]) atorvastati n 80 mg tablet See Instruct [...] 2023 90.0 Ambulat ory Pharmac y carvedilol (U/D) 25 MG ORAL TAB May cause drowsine ss.Be careful if taking OTCs.John e with food/mil k.Take or use exactly as directed . Active 09/21/2024 [id number] 4 [address] [place] [address] [facility] ([facility] [place] [place]) carvedilol (U/D) 25 MG ORAL TAB May cause drowsine ss.Be careful if taking OTCs.John e with food/mil k.Take or use exactly as directed . 06/28/2024 [id number] 4 [address] [place] [address] [facility] ([facility] [place]) carvedilol 12.5 mg tablet See Instruct ions, [...] 4 2024 180.0 Ambulat ory Pharmac y CITALOPRAM (U/D) 40 MG ORAL TAB May cause drowsine ss.Take or use exactly as directed .Obtain advice for OTCs. 07/29/2024 [id number] 4 [address] [place] [address] Dom [facility] ([facility] citalopram 40 mg tablet 40 mg, Oral, [...] 4 2023 90.0 Ambulat ory Pharmac y COZAAR (BRAND) 50 MG ORAL TAB Be careful if taking OTCs.John e or use exactly as directed .Do not take if . 07/14/2024 [id number] 4 2023 90 [employer] [facility] ([facility]) dapaglifloz in 10 mg tablet 10 mg, [...] 4 2023 90.0 Ambulat ory Pharmac y Dulaglutide 1.5 mg/mL, Injection, 0.5mL Autoinjecto r refriger ateCheck with your doctor before becoming .Store in original package. Active 09/07/2024 [id number] 4 [address] [place] [address]) Dulaglutide 3 mg/mL, Injection, 0.5mL Autoinjecto r refriger ateCheck with your doctor before becoming .Store in original package. Active 10/04/2024 [id number] 4 [address] [place] [address] Dom [facility] ([facility] Eliquis 5 mg tablet 5 mg, Oral, [...] 4 2023 90.0 Ambulat ory Pharmac y Fenofibrate (TriCor Eq.) Tablet 48 mg Oral 06/07/2024 [id number] 06/08 4 [address] [place] [address]) fenofibrate 48 mg tablet See Instruct ions, [...] 5 2024 90.0 Ambulat ory Pharmac y Fish Oil/[place] 3 Fatty Acids (Fish Oil Eq.) Capsule Conventiona l 1,000 mg Oral Take with food/mil k. 06/11/2024 [id number] 4 [address] [place] [address] Dom [facility] ([facility]) fluticasone 50 mcg/inh nasal spray [16g] 100 mcg, Nostril- Both, # 48 g, 3 total refill(s ), Hard Stop Nostri l-Both (into the nose) Ordered 02/01/2025 4 2023 48.0 Ambulat ory Pharmac y Freestyle [place] Lite Monitor See Instruct ions, # 1 [...] 5 2024 100.0 Ambulat ory Pharmac y INDAPAMIDE 2.5 MG ORAL TAB Take orange juice or banana.A void exposure to sun.Take or use exactly as directed . Active 09/02/2024 [id number] 4 [address] [place] [address] ([facility]) INDAPAMIDE 2.5 MG ORAL TAB Take orange juice or banana.A void exposure to sun.Take or use exactly as directed . 06/08/2024 [id number] 4 [address] [place] [address] ([facility]) indapamide 2.5 mg tablet 2.5 mg, Oral, [...] 45.0 Ambulat ory Pharmac y isosorbide dinitrate (U/D) 20 MG PO TAB Do not drink alcohol. Take or use exactly as directed . 07/14/2024 [id number] 4 2023 180 [facility] ([facility]) isosorbide dinitrate 20 mg tablet 20 mg, [...] total refill(s ), Acute Complet ed 03/27/2023 3 2022 7.5 Ambulat ory Pharmac y latanoprost 0.005% eye drops [2.5mL] = 1 drop(s), Eye-Both , # 8 mL, 4 total refill(s ), Hard Stop Both eyes Complet ed 04/22/2024 4 2023 7.5 Ambulat ory Pharmac y losartan (U/D) 100 MG ORAL TAB Be careful if taking OTCs.John e or use exactly as directed .Do not take if . 06/08/2024 [id number] 4 2023 90 [facility] ([facility]) losartan 100 mg tablet See Instruct ions, [...] 2.0 Ambulat ory Pharmac y nortriptyli ne (U/D) 25 MG ORAL CAP May cause drowsine ss.Avoid exposure to sun.Take or use exactly as directed .Obtain advice for OTCs. 07/29/2024 [id number] 4 2023 180 [facility] ([facility]) nortriptyli ne 25 mg capsule 50 mg, [...] 4 2024 90.0 Ambulat ory Pharmac y Ranolazine (Ranexa Eq.) Tablet 500 mg Oral Obtain advice for OTCs.May cause drowsine ss/dizzi ness.May impair driving. Swallow whole.Av oid grapefru it and grapefru it juice. 07/27/2024 [id number] 4 2023 180 [facility] ([facility]) ranolazine ER 500 mg/12 hour tablet See Instruct ions, # 180 EA, 3 total refill(s ), Hard Stop Complet ed 07/27/2024 4 2024 180.0 Ambulat ory Pharmac y tirzepatide (Mounjaro) 5 mg/0.5 mL inj-pen [4pens/2mL] See Instruct ions, # 2 mL, 0 total refill(s ), Soft Stop Notes: refriger ate Discont inued 08/08/2024 5 2024 2.0 Ambulat ory Pharmac y tirzepatide (Mounjaro) 7.5 mg/0.5 mL inj-pen [4pens/2mL] See Instruct ions, [...] 5 2024 90.0 Ambulat ory Pharmac y zolpidem 5 mg tablet 5 mg, Oral, # 90 EA, 0 total refill(s ), Hard Stop Oral (given by mouth) Discont inued 04/25/2024 4 2023 90.0 Ambulat ory Pharmac y zolpidem 5 mg tablet 5 mg, Oral, # 90 EA, 0 total refill(s ), Hard Stop Oral (given by mouth) Ordered 10/20/2024 4 2023 90.0 Ambulat ory Pharmac y [...] 4 2023 90.0 Ambulat ory Pharmac y Zolpidem Tartrate (Ambien Eq.) Tablet 5mg Oral May cause drowsine ss.[place] law prohibit s transfer of prescrip tion. 01/26/2024 [id number] 4 2023 90 [employer] [facility] ([facility]) Immunizations Combined list of available immunizations from the Department of Defense and Veterans Affairs facilities. Immunization Series Date Given Administered By Site Reaction Lot Number CVX Code Drug Financial Planning Adviser Status Comments Source Influenza, injectable, MDCK, preservative free, quadrivalent 2019 ADRIA FLETCHER () Not Given Influenza , injectabl e, MDCK, preservat jaswinder free, quadrival ent DoD Procedures Combined list of: 1) Procedures from Department of Veterans Affairs facilities going back up to thelast 18 months, not all [place] non-surgical procedures are included; 2) All procedures [...] section is an empty social history section. DoD Assessment and Plan Combined list of future care activities from Department of Defense and Veterans Affairs facilities (e.g., assessment and plan notes, appointments, orders, and referrals). Additional future care activities may be listed in the Plan of Care section. Result Assessment and Plan Date Source Assessment and Plan No data available for this section 08/15/2024 Ambulatory Pharmacy Functional Status Combined list of recent functional and cognitive assessments recorded at Department of Defense and Veterans Affairs (VA).VA Functional Doucette Measurement (FIM) Scale: 1 = Total Assistance (Subject = 0% +), 2 = Maximal Assistance (Subject = 25% +), 3 = Moderate Assistance (Subject = 50% +), 4 = Minimal Assistance (Subject = 75% +), 5 = Supervision, 6 = Modified Doucette (Device), 7 = Complete Doucette (Timely, Safely). Assessment Date/Time Source Assessment Type Assessment Skill Assessment Score Assessment Details No data available for this section
--- OUTSIDE RECORDS SUMMARY | 2024-08-15 09:52 | XMS_ITS | Encounter Summary ---
Author Organization [facility] Address [address] [place] [address] Phone Care Team Providers Care Hoist Mechanic Name Role Phone Catracho Marshall MD Primary Care Provider + [phone] Encounter Details Date Type Department Care Team (Latest Contact Info) Description 10/03/2022 Orders Only [facility] Crystal Barfield RN [address] [facility] [address] [place], [place] [id number] Social History Tobacco Use Types Packs/Day Years [...] SCAN (10/03/2022) Anatomical Region Laterality Modality Other Crystal Barfield RN [facility] P ROCEDURES Edited Result - Final * SCAN - RADIOLOGY/IMAGING (10/02/2022) Anatomical Region Laterality Modality Other us Provider Scanning Final Result documented in this encounter Visit Diagnoses Not on filedocumented in this encounter Care Teams Hoist Mechanic Relationship Specialty Start Date End Date Catracho Marshall MD [address] [place] [address] PCP - General Internal Medicine 12/05/22 documented as of this encounter
--- OUTSIDE RECORDS SUMMARY | 2024-08-15 09:52 | XMS_ITS | Referral Summary ---
Author Organization [facility] [address] Address [address] [place] [address] Care Team Providers Care Sales Training Representative Name Role Phone Catracho Marshall MD Primary Care Provider + [phone] Encounters Date Type Department Care Team Description 08/10/2024 11:15 AM CDT Office Visit [facility] Cardiology [address] [facility] [address] [place] [address] Taiwo Marshall MD NSVT (nonsustained ventricular tachycardia) ([facility]) 07/21/2024 Orders Only [facility] Cardiology [facility] [address] [place] [address] Tiara Hartman MD 07/04/2024 Orders Only [facility]iology [facility] [address] [place] [address] Tiara Hartman MD 06/06/2024 Telephone [facility] Cardiology [address] [facility] 8th [place] [address] [place] [address] Tiara Hartman MD 05/30/2024 Orders Only [facility] Cardiology [facility] Office Building [address] [place] [address] Tiara Hartman MD from Last 3 Months [...] (XANAX) 0.25 mg tablet 02/02/20 24 Active sacubitriL-valsarta n (ENTRESTO) 24-26 mg tabletIndications:c hronic heart failure Take 1 tablet by mouth 2 (two) times a day 180 tablet 3 02/08/20 24 Active dapagliflozin propanediol (FARXIGA) 10 mg tabletIndications:H eart Failure Take 1 tablet (10 mg total) by mouth daily 90 tablet 3 02/08/20 24 Active Additional Information Patient not taking.Reported on 08/10/2024 dapagliflozin propanediol (FARXIGA) 10 mg tablet Take 1 tablet (10 mg total) by mouth daily 7 tablet 02/08/20 Active Additional Information Patient not taking.Reported on 08/10/2024 fenofibrate nanocrystallized (TRICOR) 48 mg tablet Take [...] 180 capsule 3 06/22/19 25 026 Active tirzepatide (Mounjaro) 7.5 mg/0.5 mL pen injector injection Inject 0.5 mL (7.5 mg total) under the skin every 7 days Active ipratropium (ATROVENT) 42 mcg (0.06 %) nasal spray Administer 2 sprays into each nostril 3 (three) times a day Active sacubitriL-valsarta n (ENTRESTO) 24-26 mg tabletIndications:c hronic heart failure Take 1 tablet by mouth 2 (two) times a day 28 tablet 02/08/20 24 025 Discontin ued(Dupli jethro order) Mounjaro 2.5 mg/0.5 mL pen injector injection 06/16/19 25 025 Discontin ued(Alter ronni therapy) Active Problems Problem Noted Date Diagnosed Date Transient ischemic attack (TIA) 10/28/2023 Sinus bradycardia 10/27/2023 NSVT (nonsustained ventricular tachycardia) 0405/2023 PVC (premature ventricular contraction) 07/28/19 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 Dx; TIA, monitor for Afib. DOI 01/20/2023-[place]. Non-sustained ventricular tachycardia 01/02/2023 TIA [...] Sign Reading Time Taken Comments Blood Pressure 110/65 08/10/2024 11:08 AM CDT Pulse 57 08/10/2024 11:08 AM CDT Temperature 36.7 C (98 F) 08/10/2024 11:08 AM CDT Respiratory Rate 25 10/28/2023 10:45 AM CDT Oxygen Saturation 98% 08/10/2024 11:08 AM CDT Inhaled Oxygen Concentration - - Weight 106.6 kg (235 lb) 08/10/2024 11:08 AM CDT Height 154.9 cm (5' 0.98 ) 08/10/2024 11:08 AM C DT Body Mass Index 44.43 08/10/2024 11:08 AM CDT Plan of Treatment Not on file Medical Devices Implanted Type Area Rn Field Case Manager Device Identifier Shelf Expiration Date Model / Serial / Lot [employer] Nikita Monitor Lux-Dx Ii Insertable Gaming Associate [id number] - [id number] - [id number] Implanted:Qty: 1 on 10/28/2023 by Tiara Hartman MD at [facility] Implantable Loop Recorder [employer]ita 03/08/2025 [id number] / [id number] / [id number] Procedures Procedure Name Priority Date/Time Associated Diagnosis Comments DEVICE CHECK - REMOTE Routine 07/21/2024 11:00 AM CDT DEVICE CHECK - REMOTE Routine 07/04/2024 6:01 PM CDT DEVICE CHECK - REMOTE Routine 05/30/2024 2:04 PM ORDER PROCESSOR from Last 3 Months Results * DEVICE CHECK - REMOTE (07/21/2024 11:00 AM CDT) Anatomical Region Laterality Modality Other 07/21/2024 11:0 0 AM CDT Narrative 08/08/2024 10:46 AM CDT Interpretation Summary: Battery and Leads (BL) Normal battery parameters Presenting Rhythm (MT) Normal Sinus Rhythm Arrhythmic events (AE) No new arrhythmic events in monitoring period Transmission Information (TI) Device Summary Report Implant indication: Cryptogenic Stroke Procedure Note Tiara Hartman MD - 08/08/2024 Interpretation Summary: Battery and Leads (BL) Normal battery parameters Presenting Rhythm (MT) Normal Sinus Rhythm Arrhythmic events (AE) No new arrhythmic events in monitoring period Transmission Information (TI) Device Summary Report Implant indication: Cryptogenic Stroke Tiara Hartman MD [facility] PROCEDURES Final Result * DEVICE CHECK - REMOTE (07/04/2024 6:01 PM CDT) Anatomical Region Laterality Modality Other 07/04/2024 6:01 PM CDT Narrative 07/07/2024 3:53 PM CDT Interpretation Summary: Battery and Leads (BL) Normal battery parameters Presenting Rhythm (MT) Sinus Bradycardia Arrhythmic events (AE) No new arrhythmic events in monitoring period Transmission Information (TI) Implant indication: Cryptogenic Stroke Device Summary Report Procedure Note Tiara Hartman MD - 07/07/2024 Interpretation Summary: Battery and Leads (BL) Normal battery parameters Presenting Rhythm (MT) Sinus Bradycardia Arrhythmic events (AE) No new arrhythmic events in monitoring period Transmission Information (TI) Implant indication: Cryptogenic Stroke Device Summary Report Result [facility] Tiara Hartman MD CV CARDIAC SERVICES PROCEDURES Final Result * DEVICE CHECK - REMOTE (05/30/2024 2:04 PM ORDER PROCESSOR) Anatomical Region Laterality Modality Other 05/30/2024 2:04 PM ORDER PROCESSOR Narrative 06/08/2024 11:15 AM ORDER PROCESSOR Interpretation Summary: Battery and Leads (BL) Normal battery parameters Presenting Rhythm (MT) Sinus Bradycardia Arrhythmic events (AE) No new arrhythmic events in monitoring period Anticoagulation (AC) Patient on anticoagulant therapy Patient prescribed Apixaban (Eliquis) Transmission Information (TI) Device Summary Report Follow Up (FU) Patient's primary treating physician will be apprised of findings Procedure Note Tiara Hartman MD - 06/08/2024 Interpretation Summary: Battery and Leads (BL) Normal battery parameters Presenting Rhythm (MT) Sinus Bradycardia Arrhythmic events (AE) No new arrhythmic events in monitoring period Anticoagulation (AC) Patient on anticoagulant therapy Patient prescribed Apixaban (Eliquis) Transmission Information (TI) Device Summary Report Follow Up (FU) Patient's primary treating physician will be apprised of findings Result [facility] Tiara Hartman MD CV CARDIAC SERVICES PROCEDURES Final Result from Last 3 Months Insurance [facility] Member Subscriber Plan / Payer (Ef fective 2022-Present) Name:Delmar Hummel Relation to Subscriber:Self Name:Delmar Hummel Payer ID:[id number] (NAIC) Group ID:Not on file Type:[employer] Water:[phone] Address: [address] [id number] [place] [address] [phone] [place] [address] Advance Directives For more information, please contact: [phone] * Full Code (Latest Code Status on File) Date Activated Date Inactivated Comments 07/01/2023 10:33 AM 07/01/2023 4:53 PM * Full Code Date Activated Date Inactivated Comments 06/19/2023 8:03 AM 06/20/2023 4:38 AM Care Teams Sales Training Representative Relationship Specialty Start Date End Date Catracho Marshall MD [address] [phone] PCP - General Internal Medicine 12/05/22
--- OUTSIDE RECORDS SUMMARY | 2024-08-15 09:52 | XMS_ITS | Clinical Summary ---
Author Organization [facility] [address] Address [address] [place] [address] Care Team Providers Care Printing Film Stripper Name Role Phone Catracho Marshall MD Primary Care Provider + [phone] Allergies Active Allergy Reactions Criticality Noted Date [...] mouth daily 7 tablet 02/08/20 24 Active Additional Information Patient not [...] artery disease of n ative artery of [place] heart with stable angina pectoris 07/19/2023 Presence of electronic cardiac device 06/19/2023 Abnormal stress test 06/08/2023 Chest pain 06/08/2023 Status post placement of implantable loop record er 01/05/2023 Overview (01/05/2023): Medtronic LNQ22 Loop Recorder. Dx; TIA, monitor for Afib. DOI 01/20/2023-[place]ox. WinView remote monitoring. Non-sustained ventricular tachycardia 01/02/2023 TIA (transient ischemic attack) 01/02/2023 Essential hypertension 01/02/2023 Dyslipidemia 01/02/2023 Encounters Date Type Department Care Team Description 08/10/2024 11:15 AM CDT Office Visit [facility] [address] [facility] [address] [place] [address] Taiwo Marshall MD NSVT (nonsustained ventricular tachycardia) ([facility]) 07/21/2024 Orders Only [facility] [address] [facility] [address] [place] [address] Tiara Hartman MD 07/04/2024 Orders Only [facility] [address] [facility] [address] Building [address] [place] [address] Tiara Hartman MD 06/06/2024 Telephone [facility] [address] [place] [address] 8th [place] [address] [place] [address] Tiara Hartman MD 05/30/2024 Orders Only [facility] [address] [facility] Office Building [address] [place] [address] Tiara Hartman MD from Last 3 Months [...] Date Smoking Tobacco: Former Cigarettes Q uit: 1997 Passive Smoke Exposure: Past Smokeless Tobacco: Never [...] 08/10/2024 11:08 AM CDT Plan of Treatment Health Maintenance Due Date Last Done Comments Breast Cancer Screening-Mammogram 1962 Cervical Cancer Screening 1962 Colon Cancer Screening-Colonoscopy 1962 Depression Screening 1962 Hepatitis C Screening 1962 Hepatitis B Screening 1980 Regular Well Visit/Exam 18-64 1980 Zoster Vaccine (1 of 2) 2012 Covid-19 Vaccine (4 - 2023-2 5 season) 2023 04/08/2021, 07/25/2020, 06/27/2020 Pneumococcal vaccine <65 (3 of 3 - PCV20 or PCV21) 02/10/2024 02/09/2019, 10/16/2017, 06/26/2017 Influenza Vaccine (Season Ended) 2024 02/10/2022, 02/06/2021, 02/09/2019, Additional history exists DTaP/Tdap/Td Vaccine (2 - Td or Tdap) 06/27/2027 06/26/2017 Medical Devices Implanted Type Area Project Systems Engineer Device Identifier Shelf Expiration Date Model / Serial / Lot [employer] Monitor Lux-Dx Ii Insertable Science Education Professor [id number] - [id number] - [id number] Implanted:Qty: 1 on 10/28/2023 by Tiara Hartman MD at [facility] Implantable Loop Recorder [employer] 03/08/2025 [id number] / [id number] Procedures Procedure Name Priority Date/Time Associated Diagnosis Comments DEVICE CHECK - REMOTE Routine 07/21/2024 11:00 AM CDT DEVICE CHECK - REMOTE Routine 07/04/2024 6:01 PM CDT DEVICE CHECK - REMOTE Routine 05/30/2024 2:04 PM AREA SECRETARY from Last 3 Months Results * DEVICE CHECK - REMOTE (07/21/2024 11:00 AM CDT) Anatomical Region Laterality Modality Other 07/21/2024 11:0 0 AM CDT Narrative 08/08/2024 10:46 AM CDT Interpretation Summary: Battery and Leads (BL) Normal battery parameters Presenting Rhythm (NC) Normal Sinus Rhythm Arrhythmic events (AE) No new arrhythmic events in monitoring period Transmission Information (TI) Device Summary Report Implant indication: Cryptogenic Stroke Procedure Note Tiara Hartman MD - 08/08/2024 Interpretation Summary: Battery and Leads (BL) Normal battery parameters Presenting Rhythm (NC) Normal Sinus Rhythm Arrhythmic events (AE) No [...] Leads (BL) Normal battery parameters Presenting Rhythm (NC) Sinus Bradycardia Arrhythmic events (AE) No new arrhythmic events in monitoring period Transmission Information (TI) Implant indication: Cryptogenic Stroke Device Summary Report Procedure Note Tiara Hartman MD - 07/07/2024 Interpretation Summary: Battery and Leads (BL) Normal battery parameters Presenting Rhythm (NC) Sinus Bradycardia Arrhythmic events (AE) No new arrhythmic events in monitoring period Transmission Information (TI) Implant indication: Cryptogenic Stroke Device Summary Report Tiara Hartman MD CV CARDIAC SERVICES PROCEDURES Final Result * DEVICE CHECK - REMOTE (05/30/2024 2:04 PM AREA SECRETARY) Anatomical Region Laterality Modality Other 05/30/2024 2:04 PM AREA SECRETARY Narrative 06/08/2024 11:15 AM AREA SECRETARY Interpretation Summary: Battery and Leads (BL) Normal battery parameters Presenting Rhythm (NC) Sinus Bradycardia Arrhythmic events (AE) No new arrhythmic events in monitoring period Anticoagulation (AC) Patient on anticoagulant therapy Patient prescribed Apixaban (Eliquis) Transmission Information (TI) Device Summary Report Follow Up (FU) Patient's primary treating physician will be apprised of findings Procedure Note Tiara Hartman MD - 06/08/2024 Interpretation Summary: Battery and Leads (BL) Normal battery parameters Presenting Rhythm (NC) Sinus Bradycardia Arrhythmic events (AE) No new arrhythmic events in monitoring period Anticoagulation (AC) Patient on anticoagulant therapy Patient prescribed Apixaban (Eliquis) Transmission Information (TI) Device Summary Report Follow Up (FU) Patient's primary treating physician will be apprised of findings Tiara Hartman MD CV CARDIAC SERVICES PROCEDURES Final Result from Last 3 Months Insurance [id number] [place] [address] [facility] [id number] [place] [address] Advance Directives For more information, please contact: [phone] * Full Code (Latest Code Status on File) Date Activated Date Inactivated Comments 07/01/2023 10:33 AM 07/01/2023 4:53 PM * Full Code Date Activated Date Inactivated Comments 06/19/2023 8:03 AM 06/20/2023 4:38 AM Care Teams Printing Film Stripper Relationship Specialty Start Date End Date Catracho Marshall MD [address] [place] [address] PCP - General Internal Medicine 12/05/22
--- OUTSIDE RECORDS SUMMARY | 2024-08-15 09:52 | XMS_ITS | Encounter Summary ---
Author Organization [facility] Address [address] [place] [address] Phone Care Team Providers Care Hydraulic Operator Name Role Phone Catracho Marshall MD Primary Care Provider + [phone] Encounter Details Date Type Department Care Team (Latest Contact Info) Description 12/14/2023 Orders Only [facility] Crystal [place], JUDY [address] [facility] [address] [place], [place] [id number] Social History Tobacco Use Types Packs/Day Years [...] on filedocumented in this encounter Care Teams Hydraulic Operator Relationship Specialty Start Date End Date Catracho Marshall MD [address] [place], [place] [id number] PCP - General Internal Medicine 12/05/22 documented as of this encounter
--- OUTSIDE RECORDS SUMMARY | 2024-08-15 09:52 | XMS_ITS | Encounter Summary ---
Author Organization [facility] Address [address] [place] [address] Phone Care Team Providers Care Applicator Sprayer Name Role Phone Catracho Marshall MD Primary Care Provider + [phone] Encounter Details Date Type Department Care Team (Latest Contact Info) Description 01/06/2024 Orders Only [facility] Crystal [place], JUDY [address] [facility] [address] [place], [place] [id number] Social History Tobacco Use Types Packs/Day Years [...] on filedocumented in this encounter Care Teams Applicator Sprayer Relationship Specialty Start Date End Date Catracho Marshall MD [address] [place], [place] [address] PCP - General Internal Medicine 12/05/22 documented as of this encounter
--- OUTSIDE RECORDS SUMMARY | 2024-08-15 09:52 | XMS_ITS | Encounter Summary ---
Author Organization [facility] Address [address] [place] [address] Phone Care Team Providers Care Repairer Welding Equipment Name Role Phone Catracho Marshall MD Primary Care Provider [phone] Encounter Details Date Type Department Care Team [...] on filedocumented in this encounter Care Teams Repairer Welding Equipment Relationship Specialty Start Date End Date Catracho Marshall MD [address] [place] [address] PCP - General Internal Medicine 12/05/22 documented as of this encounter
--- OUTSIDE RECORDS SUMMARY | 2024-08-15 09:52 | XMS_ITS | Encounter Summary ---
Author Organization [facility] Address [address] [place] [address] Phone Care Team Providers Care Physical Sciences Instructor Name Role Phone Catracho Marshall MD Primary Care Provider + [phone] Encounter Details Date Type Department Care Team (Latest Contact Info) Description 09/08/2005 Orders Only [facility] Crystal Barfield RN [address] [facility] [address] [place], [place] [id number] Social History Tobacco Use Types Packs/Day Years [...] on filedocumented in this encounter Care Teams Physical Sciences Instructor Relationship Specialty Start Date End Date Catracho Marshall MD [address] [place] [address] PCP - General Internal Medicine 12/05/22 documented as of this encounter
--- OUTSIDE RECORDS SUMMARY | 2024-08-15 09:52 | XMS_ITS | Encounter Summary ---
Author Organization [facility] Address [address] [place] [address] Phone Care Team Providers Care Rail Signal Designer Name Role Phone Catracho Marshall MD Primary Care Provider + [phone] Encounter Details Date Type Department Care Team (Latest Contact Info) Description 11/25/2022 Orders Only [facility] Crystal Barfield RN [address] [facility] [address] [place], [place] [id number] Social History Tobacco Use Types Packs/Day Years [...] on filedocumented in this encounter Care Teams Rail Signal Designer Relationship Specialty Start Date End Date Catracho Marshall MD [address] [place] [address] PCP - General Internal Medicine 12/05/22 documented as of this encounter
--- OUTSIDE RECORDS SUMMARY | 2024-08-15 09:52 | XMS_ITS | Encounter Summary ---
Author Organization [facility] Address [address] [place] [address] Phone Care Team Providers Care Presentation Designer Name Role Phone Catracho Marshall MD Primary Care Provider + [phone] Encounter Details Date Type Department Care Team (Latest Contact Info) Description 04/03/2023 Orders Only [facility] Crystal Barfield RN [address] [facility] [address] [place], [place] [id number] Social History Tobacco Use Types Packs/Day Years [...] SCAN (04/03/2023) Anatomical Region Laterality Modality Other Crystal Barfield RN CV CARDIAC SERVICES P ROCEDURES Final Result documented in this encounter Visit Diagnoses Not on filedocumented in this encounter Care Teams Presentation Designer Relationship Specialty Start Date End Date Catracho Marshall MD [address] [place] [id number] PCP - General Internal Medicine 12/05/22 documented as of this encounter
--- OUTSIDE RECORDS SUMMARY | 2024-08-15 09:53 | XMS_ITS | Clinical Summary ---
Author Organization [facility] Address [address] [place] [address] Care Team Providers Care Economic Historian Name Role Phone Unavailable Primary Care Provider [...] 100.7 kg (222 lb) 03/13/2008 11:31 AM MANAGER JAVA Height 157.5 cm (5' 2 ) 03/13/2008 11:31 AM MANAGER JAVA Body Mass Index 40.6 03/13/2008 11:31 AM MANAGER JAVA Plan of Treatment Health Maintenance Due Date [...] Screening with HPV 1992 Mammogram Screening 2002 Pneumococcal Vaccine: 50+ Ye ars (1 of 1 - PCV) 2012 Zoster Vaccines (1 of 2) 2012 COVID-19 [...]
--- OUTSIDE RECORDS SUMMARY | 2024-08-15 09:53 | XMS_ITS | Encounter Summary ---
Author Organization [facility] Address [address] [place] [address] Phone Care Team Providers Care Paint Sprayer Sandblaster Name Role Phone Catracho Marshall MD Primary Care Provider + [phone] Encounter Details Date Type Department Care Team (Latest Contact Info) Description 02/23/2023 Orders Only [facility] Crystal [place], JUDY [address] [facility] [address] [place], [place] [id number] Social History Tobacco Use Types Packs/Day Years [...] on filedocumented in this encounter Care Teams Paint Sprayer Sandblaster Relationship Specialty Start Date End Date Catracho Marshall MD [address] [place] [address] PCP - General Internal Medicine 12/05/22 documented as of this encounter
--- NOTE | 2024-08-15 10:53 | PC.NURSE ---
pt resting per recliner, no concerns voiced. tolerating infusion well.
[2024-08-15 11:45] VITALS: BP 135/69; PULSE 68; RESP 16; TEMP 36.3; O2SAT 96
== END 2024-08-15 11:45 | disposition home or self-care (01) ==
PROVIDERS: PCP Internal Medicine; Visit Provider Internal Medicine
DX: D50.9 Iron deficiency anemia, unspecified (principal)
CPT/HCPCS: 96365; 96366; J1756; J7050

== ENCOUNTER 2024-08-30 08:18 | Outpatient (CLI) | payer OTHER, SELFPAY ==
--- OUTSIDE RECORDS SUMMARY | 2024-08-30 08:36 | XMS_ITS | Encounter Summary ---
Author Organization [facility] Address [address] [place] [address] Phone Care Team Providers Care Silk Spreader Name Role Phone Catracho Marshall MD Primary Care Provider + [phone] Encounter Details Date Type Department Care Team (Latest Contact Info) Description 10/03/2022 Orders Only [facility] Crystal Barfield RN [address] [facility] [address] [place], [place] [phone] Social History Tobacco Use Types Packs/Day Years [...] on filedocumented in this encounter Care Teams Silk Spreader Relationship Specialty Start Date End Date Catracho Marshall MD [address] [place] [address] PCP - General Internal Medicine 12/05/22 documented as of this encounter
--- OUTSIDE RECORDS SUMMARY | 2024-08-30 08:36 | XMS_ITS | Encounter Summary ---
Author Organization [facility] Address [address] [place] [address] Phone Care Team Providers Care Staff Physical Therapy Assistant Name Role Phone Catracho Marshall MD Primary Care Provider + [phone] Encounter Details Date Type Department Care Team (Latest Contact Info) Description 04/03/2023 Orders Only [facility] Crystal Barfield RN [address] [facility] [address] [place], [place] [id number] Social History Tobacco Use Types Packs/Day Years [...] on filedocumented in this encounter Care Teams Staff Physical Therapy Assistant Relationship Specialty Start Date End Date Catracho Marshall MD [address] [place] [id number] PCP - General Internal Medicine 12/05/22 documented as of this encounter
--- OUTSIDE RECORDS SUMMARY | 2024-08-30 08:36 | XMS_ITS | Encounter Summary ---
Author Organization [facility] Address [address] [place] [address] Phone Care Team Providers Care Porter Baggage Name Role Phone Catracho Marshall MD Primary Care Provider + [phone] Encounter Details Date Type Department Care Team (Latest Contact Info) Description 02/23/2023 Orders Only [facility] Crystal [place], JUDY [address] [facility] [address] [place], [place] [id number] Social History Tobacco Use Types Packs/Day Years [...] on filedocumented in this encounter Care Teams Porter Baggage Relationship Specialty Start Date End Date Catracho Marshall MD [address] [place] [address] PCP - General Internal Medicine 12/05/22 documented as of this encounter
--- OUTSIDE RECORDS SUMMARY | 2024-08-30 08:36 | XMS_ITS | Clinical Summary ---
Author Organization [facility] Address [address] [place] [address] Care Team Providers Care Armament Mechanic Name Role Phone Unavailable Primary Care Provider [...] 100.7 kg (222 lb) 03/13/2008 11:31 AM MEN'S BASKETBALL COACH Height 157.5 cm (5' 2 ) 03/13/2008 11:31 AM MEN'S BASKETBALL COACH Body Mass Index 40.6 03/13/2008 11:31 AM MEN'S BASKETBALL COACH Plan of Treatment Health Maintenance Due Date [...]
--- OUTSIDE RECORDS SUMMARY | 2024-08-30 08:36 | XMS_ITS | Encounter Summary ---
Author Organization [facility] Address [address] [place] [address] Phone Care Team Providers Care Commercial Escrow Assistant Name Role Phone Catracho Marshall MD Primary Care Provider [phone] Encounter Details Date Type Department Care Team [...] on filedocumented in this encounter Care Teams Commercial Escrow Assistant Relationship Specialty Start Date End Date Catracho Marshall MD [address] [place] [address] PCP - General Internal Medicine 12/05/22 documented as of this encounter
--- OUTSIDE RECORDS SUMMARY | 2024-08-30 08:36 | XMS_ITS | Encounter Summary ---
Author Organization [facility] Address [address] [place] [address] Phone Care Team Providers Care Functional Support Analyst Name Role Phone Catracho Marshall MD Primary Care Provider + [phone] Encounter Details Date Type Department Care Team (Latest Contact Info) Description 12/14/2023 Orders Only [facility] Crystal [place], JUDY [address] [facility] [address] [place], [place] [phone] Social History Tobacco Use Types Packs/Day Years [...] on filedocumented in this encounter Care Teams Functional Support Analyst Relationship Specialty Start Date End Date Catracho Marshall MD [address] [place], [place] [id number] PCP - General Internal Medicine 12/05/22 documented as of this encounter
--- OUTSIDE RECORDS SUMMARY | 2024-08-30 08:36 | XMS_ITS | Clinical Summary ---
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 Dx; TIA, monitor for Afib. DOI 01/20/2023-[place]. Faves remote monitoring. Non-sustained ventricular tachycardia 01/02/2023 TIA (transient ischemic attack) 01/02/2023 Essential hypertension 01/02/2023 Dyslipidemia 01/02/2023 Encounters Date Type Department Care Team Description 08/25/[address] [facility]iology [address] [facility] 8th [place] [address] [place] [address] Taiwo Marshall MD Surgical Clearance (Colonoscopy) 08/24/2024 Orders Only [facility] Health Information Management [address] [place] [address] Scanning, Provider 08/10/2024 11:15 AM CDT Office Visit [facility] [address] [facility] [address] [place] [address] Taiwo Marshall MD NSVT (nonsustained ventricular tachycardia) ([facility]) 07/21/[address] [facility] [address] [facility] Medical Office [address] [place] [address] Tiara Hartman MD 07/04/[address] [facility] [address] [facility] Medical Office [address] [place] [address] Tiara Hartman MD 06/06/[address] [facility]iology [address] [facility] 8th [place] [address] [place] [address] Tiara Hartman MD from Last 3 Months [...] 06/27/2027 06/26/2017 Medical Devices Implanted Type Area Licensed Clinician Device Identifier Shelf Expiration Date Model / Serial / Lot An[employer] Monitor Lux-Dx Ii Insertable Bootmaker M312 - [id number] - [id number] Implanted:Qty: 1 on 10/28/2023 by Tiara Hartman MD at [facility] Implantable Loop Recorder [employer] 03/08/2025 M312 / [id number] Procedures Procedure Name Priority Date/Time Associated Diagnosis Comments DEVICE CHECK - REMOTE 08/22/2024 8:57 PM CDT DEVICE CHECK - REMOTE Routine 07/21/2024 11:00 AM CDT DEVICE CHECK - REMOTE Routine 07/04/2024 6:01 PM CDT from Last 3 Months Results * DEVICE CHECK - REMOTE (08/22/2024 8:57 PM CDT) Anatomical Region Laterality Modality Other 08/22/2024 8:57 PM CDT Narrative 08/24/2024 11:13 AM CDT Interpretation Summary: Battery and Leads (BL) Normal battery parameters Presenting Rhythm (KS) Normal Sinus Rhythm Arrhythmic events (AE) No new arrhythmic events in monitoring period Transmission Information (TI) Device Summary Report Procedure Note Tiara Hartman MD - 08/24/2024 Interpretation Summary: Battery and Leads (BL) Normal battery parameters Presenting Rhythm (KS) Normal Sinus Rhythm Arrhythmic events (AE) No new arrhythmic events in monitoring period Transmission Information (TI) Device Summary Report us Provider Scanning CV CARDIAC SERVICES PROCEDURES Final Result * DEVICE CHECK - REMOTE (07/21/2024 11:00 AM CDT) Anatomical Region Laterality Modality Other 07/21/2024 11:0 0 AM CDT Narrative 08/08/2024 10:46 AM CDT Interpretation Summary: Battery and Leads (BL) Normal battery parameters Presenting Rhythm (KS) Normal Sinus Rhythm Arrhythmic events (AE) No new arrhythmic events in monitoring period Transmission Information (TI) Device Summary Report Implant indication: Cryptogenic Stroke Procedure Note Tiara Hartman MD - 08/08/2024 Interpretation Summary: Battery and Leads (BL) Normal battery parameters Presenting Rhythm (KS) Normal Sinus Rhythm Arrhythmic events (AE) No new arrhythmic events in monitoring period Transmission Information (TI) Device Summary Report Implant indication: Cryptogenic Stroke us Tiara Hartman MD CV CARDIAC SERVICES PROCEDURES Final Result * DEVICE CHECK - REMOTE (07/04/2024 6:01 PM CDT) Anatomical Region Laterality Modality Other 07/04/2024 6:01 PM CDT Narrative 07/07/2024 3:53 PM CDT Interpretation Summary: Battery and Leads (BL) Normal battery parameters Presenting Rhythm (KS) Sinus Bradycardia Arrhythmic events (AE) No new arrhythmic events in monitoring period Transmission Information (TI) Implant indication: Cryptogenic Stroke Device Summary Report Procedure Note Tiara Hartman MD - 07/07/2024 Interpretation Summary: Battery and Leads (BL) Normal battery parameters Presenting Rhythm (KS) Sinus Bradycardia Arrhythmic events (AE) No new arrhythmic events in monitoring period Transmission Information (TI) Implant indication: Cryptogenic Stroke Device Summary Report Tiara Hartman MD CV CARDIAC SERVICES PROCEDURES Final Result from Last 3 Months Insurance [id number] [place] [address] [facility] Advance Directives For more information, please contact: [phone] * Full Code (Latest Code Status on File) Date Activated Date Inactivated Comments 07/01/2023 10:33 AM 07/01/2023 4:53 PM * Full Code Date Activated Date Inactivated Comments 06/19/2023 8:03 AM 06/20/2023 4:38 AM Care Teams Trust Evaluation Supervisor Relationship Specialty Start Date End Date Catracho Marshall MD [address] [place] [id number] PCP - General Internal Medicine 12/05/22
--- OUTSIDE RECORDS SUMMARY | 2024-08-30 08:36 | XMS_ITS | Encounter Summary ---
Author Organization [facility] Address [address] [place] [address] Phone Care Team Providers Care Director Education Name Role Phone Catracho Marshall MD Primary Care Provider + [phone] Encounter Details Date Type Department Care Team (Latest Contact Info) Description 09/08/2005 Orders Only [facility] Crystal Barfield RN [address] [facility] [address] [place], [place] [id number] Social History Tobacco Use Types Packs/Day Years [...] on filedocumented in this encounter Care Teams Director Education Relationship Specialty Start Date End Date Catracho Marshall MD [address] [place] [address] PCP - General Internal Medicine 12/05/22 documented as of this encounter
--- OUTSIDE RECORDS SUMMARY | 2024-08-30 08:36 | XMS_ITS | Encounter Summary ---
Author Organization [facility] Address [address] [place] [address] Phone Care Team Providers Care Byproducts Pump Operator Name Role Phone Catracho Marshall MD Primary Care Provider + [phone] Encounter Details Date Type Department Care Team (Latest Contact Info) Description 11/25/2022 Orders Only [facility] Crystal Barfield RN [address] [facility] [address] [place], [place] [id number] Social History Tobacco Use Types Packs/Day Years [...] on filedocumented in this encounter Care Teams Byproducts Pump Operator Relationship Specialty Start Date End Date Catracho Marshall MD [address] [place] [address] PCP - General Internal Medicine 12/05/22 documented as of this encounter
--- OUTSIDE RECORDS SUMMARY | 2024-08-30 08:36 | XMS_ITS | Continuity of Care Document ---
Author Name [facility] Organization [facility] Care Team Providers Care Fruit And Vegetable Packer Name Role Phone [facility] Unavailable Unavailable Medications Combined list of outpatient [...] with your doctor before becoming . 07/29/2024 [id number] 2023 180 [employer] Dom [facility] ([facility]) apixaban 5 mg tablet [...] grapefru it and grapefru it juice. 06/07/2024 [id number] 4 [address] [place] [address] Dom [facility] ([facility]) atorvastati n 80 mg [...] use exactly as directed . Active 09/21/2024 [id number] 4 [address] [place] [address] Dom [facility] ([facility]) carvedilol (U/D) 25 MG ORAL TAB May cause drowsine ss.Be careful if taking OTCs.John e with food/mil k.Take or use exactly as directed . 06/28/2024 [id number] 4 [address] [place] [address] Dom [facility] ([facility]) carvedilol 12.5 mg tablet [...] as directed .Obtain advice for OTCs. 07/29/2024 [id number] 4 [address] [place] [address] Dom [facility] ([facility]) citalopram 40 mg tablet [...] directed .Do not take if . 07/14/2024 [id number] 4 2023 90 [employer] Dom [facility] ([facility]) dapaglifloz in 10 mg [...] becoming .Store in original package. Active 09/07/2024 [id number] 4 [address] [place] [address]) Dulaglutide 3 mg/mL, Injection, 0.5mL Autoinjecto r refriger ateCheck with your doctor before becoming .Store in original package. Active 10/04/2024 [id number] 4 [address] [place] [address] Dom [facility] ([facility]) Eliquis 5 mg tablet 5 mg, Oral, BID, # 180 EA, 0 total refill(s ), Hard Stop Oral (given by mouth) Discont inued 11/02/2023 3 2023 180.0 Ambulat ory Pharmac y estradiol 1 [...] (TriCor Eq.) Tablet 48 mg Oral 06/07/2024 [id number] 06/08 4 [address] [place] [address] Dom [facility] ([facility]) fenofibrate 48 mg tablet See Instruct ions, [...] 2024 90.0 Ambulat ory Pharmac y Fish Oil/[place] 3 Fatty Acids (Fish Oil Eq.) Capsule Conventiona l 1,000 mg Oral Take with food/mil k. 06/11/2024 [id number] 4 [address] [place] [address] Dom [facility] ([facility]) fluticasone 50 mcg/inh nasal spray [16g] 100 mcg, Nostril- Both, # 48 g, 3 total refill(s ), Hard Stop Nostri l-Both (into the nose) Ordered 02/01/2025 4 2023 48.0 Ambulat ory Pharmac y Freestyle [place] Lite Monitor See Instruct ions, # 1 [...] total refill(s ), Hard Stop Complet ed 08/16/2024 5 2024 90.0 Ambulat ory Pharmac [...] use exactly as directed . Active 09/02/2024 [id number] 4 [address] [place] [address]) INDAPAMIDE 2.5 MG ORAL TAB Take orange juice or banana.A void exposure to sun.Take or use exactly as directed . 06/08/2024 [id number] 4 [address] [place] [address]) indapamide 2.5 mg tablet 2.5 mg, Oral, [...] or use exactly as directed . 07/14/2024 [id number] 4 2023 180 [facility] Dom [facility] ([facility]) isosorbide dinitrate 20 mg [...] directed .Do not take if . 06/08/2024 [id number] 4 2023 90 [facility] Dom [facility] ([facility]) losartan 100 mg tablet [...] as directed .Obtain advice for OTCs. 07/29/2024 [id number] 4 2023 180 [facility] ([facility]) nortriptyli ne 25 mg [...] grapefru it and grapefru it juice. 07/27/2024 [id number] 4 2023 180 [employer] Dom [facility] ([facility]) ranolazine ER 500 mg/12 hour tablet See Instruct ions, # 180 EA, 3 total refill(s ), Hard Stop Complet ed 07/27/2024 4 2024 180.0 Ambulat ory Pharmac y sacubitril- valsartan 24 mg-26 mg tablet = 1 tab(s), Oral, BID, # 180 EA, 3 total refill(s ), Hard Stop Oral (given by mouth) Ordered 02/07/2025 5 2024 180.0 Ambulat ory Pharmac y tirzepatide [...] prohibit s transfer of prescrip tion. 01/26/2024 [id number] 4 2023 90 [employer] Dom [facility] ([facility]) Immunizations Combined list of available immunizations from the Department of Defense and Veterans Affairs facilities. Immunization Series Date Given Administered By Site Reaction Lot Number CVX Code Drug Power Machine Operator Status Comments Source Influenza, injectable, MDCK, preservative free, quadrivalent 2019 ADRIA FLETCHER () Not Given Influenza , injectabl e, MDCK, preservat jaswinder free, quadrival ent DoD Procedures Combined list of: 1) Procedures from Department of Veterans Affairs facilities going back up to thelast 18 months, not all [place] non-surgical procedures are included; 2) All procedures [...] Plan No data available for this section 08/30/2024 Ambulatory Pharmacy Functional Status Combined list of recent functional and cognitive assessments recorded at Department of Defense and Veterans Affairs (VA).VA Functional [place] Measurement (FIM) Scale: 1 = Total Assistance (Subject = 0% +), 2 = Maximal Assistance (Subject = 25% +), 3 = Moderate Assistance (Subject = 50% +), 4 = Minimal Assistance (Subject = 75% +), 5 = Supervision, 6 = Modified [place] (Device), 7 = Complete [place] (Timely, Safely). Assessment Date/Time Source Assessment Type Assessment Skill Assessment Score Assessment Details No data available for this section
--- OUTSIDE RECORDS SUMMARY | 2024-08-30 08:36 | XMS_ITS | Encounter Summary ---
Author Organization [facility] Address [address] [place] [address] Phone Care Team Providers Care Head Of Ict Name Role Phone Catracho Marshall MD Primary Care Provider + [phone] Encounter Details Date Type Department Care Team (Latest Contact Info) Description 01/06/2024 Orders Only [facility] Crystal Barfield, JUDY [address] [facility] [address] [place], [place] [id number] Social History Tobacco Use Types Packs/Day Years [...] on filedocumented in this encounter Care Teams Head Of Ict Relationship Specialty Start Date End Date Catracho Marshall MD [address] [place], [place] [id number] PCP - General Internal Medicine 12/05/22 documented as of this encounter
--- OUTSIDE RECORDS SUMMARY | 2024-08-30 08:36 | XMS_ITS | Referral Summary ---
Author Organization [facility] [address] Address [address] [place] [address] Care Team Providers Care Logistics Coordinator Name Role Phone Catracho Marshall MD Primary Care Provider + [phone] Encounters Date Type Department Care Team Description 08/25/2024 Telephone [facility] Cardiology [address] [place] [address] 8th [place] [address] [place] [address] Taiwo Marshall MD Surgical Clearance (Colonoscopy) 08/24/2024 Orders Only [facility] Health Information Management [address] [place] [address] Scanning, Provider 08/10/2024 11:15 AM CDT Office Visit [facility] Cardiology [address] [facility] [address] [place] [address] Taiwo Marshall MD NSVT (nonsustained ventricular tachycardia) ([facility]) 07/21/2024 Orders Only [facility] Cardiology [facility] Office Building [address] [place] [address] Tiara Hartman MD 07/04/2024 Orders Only [facility] Cardiology [facility] Office Building [address] [place] [address] Tiara Hartman MD 06/06/2024 Telephone [facility] Cardiology [facility] 8th [place] [address] [place] [phone] Tiara Hartman MD from Last 3 Months [...] artery disease of n ative artery of [place] heart with stable angina pectoris 07/19/2023 Presence of electronic cardiac device 06/19/2023 Abnormal stress test 06/08/2023 Chest pain 06/08/2023 Status post placement of implantable loop record er 01/05/2023 Overview (01/05/2023): Medtronic LNQ22 Loop Recorder. Dx; TIA, monitor for Afib. DOI 01/20/2023-[place]. Carelink remote monitoring. Non-sustained ventricular tachycardia 01/02/2023 TIA [...] on file Medical Devices Implanted Type Area Chief Technology Officer Device Identifier Shelf Expiration Date Model / Serial / Lot [employer]Demand Monitor Lux-Dx Ii Insertable Freight Flagman [id number] - [id number] - [id number] Implanted:Qty: 1 on 10/28/2023 by Tiara Hartman MD at [facility] Implantable Loop Recorder [employer] 03/08/2025 [id number] / [id number] / [id number] Procedures Procedure Name Priority Date/Time Associated Diagnosis [...] Leads (BL) Normal battery parameters Presenting Rhythm (WA) Normal Sinus Rhythm Arrhythmic events (AE) No new arrhythmic events in monitoring period Transmission Information (TI) Device Summary Report Procedure Note Tiara Hartman MD - 08/24/2024 Interpretation Summary: Battery and Leads (BL) Normal battery parameters Presenting Rhythm (WA) Normal Sinus Rhythm Arrhythmic events (AE) No new arrhythmic events in monitoring period Transmission Information (TI) Device Summary Report Provider Scanning CV CARDIAC SERVICES PROCEDURES Final Result * DEVICE CHECK - REMOTE (07/21/2024 11:00 AM CDT) Anatomical Region Laterality Modality Other 07/21/2024 11:0 0 AM CDT Narrative 08/08/2024 10:46 AM CDT Interpretation Summary: Battery and Leads (BL) Normal battery parameters Presenting Rhythm (WA) Normal Sinus Rhythm Arrhythmic events (AE) No new arrhythmic events in monitoring period Transmission Information (TI) Device Summary Report Implant indication: Cryptogenic Stroke Procedure Note Tiara Hartman MD - 08/08/2024 Interpretation Summary: Battery and Leads (BL) Normal battery parameters Presenting Rhythm (WA) Normal Sinus Rhythm Arrhythmic events (AE) No [...] Leads (BL) Normal battery parameters Presenting Rhythm (WA) Sinus Bradycardia Arrhythmic events (AE) No new arrhythmic events in monitoring period Transmission Information (TI) Implant indication: Cryptogenic Stroke Device Summary Report Procedure Note Tiara Hartman MD - 07/07/2024 Interpretation Summary: Battery and Leads (BL) Normal battery parameters Presenting Rhythm (WA) Sinus Bradycardia Arrhythmic events (AE) No new arrhythmic events in monitoring period Transmission Information (TI) Implant indication: Cryptogenic Stroke Device Summary Report Tiara Hartman MD CV CARDIAC SERVICES PROCEDURES Final Result from Last 3 Months Insurance [facility] [id number] [place] [address] [facility] Advance Directives For more information, please contact: [phone] * Full Code (Latest Code Status on File) Date Activated Date Inactivated Comments 07/01/2023 10:33 AM 07/01/2023 4:53 PM * Full Code Date Activated Date Inactivated Comments 06/19/2023 8:03 AM 06/20/2023 4:38 AM Care Teams Logistics Coordinator Relationship Specialty Start Date End Date Catracho Marshall MD [address] [id number] PCP - General Internal Medicine 12/05/22
[2024-08-30 08:40] LABS: Hematocrit 33.9 % (35.0-49.0); Hemoglobin 11.4 g/dL (12.0-15.0); Immature Reticulocyte Fraction 7.5 % (2.0-16.52); Mean Corpuscular HGB Conc 33.6 g/dL (32-36); Mean Corpuscular Hemoglobin 31.6 pg (27.0-31.0); Mean Corpuscular Volume 93.9 fL (78.0-102.0); Mean Platelet Volume 9.5 fl (9.2-11.8); Platelet Count Result 190 K/mm3 (150-420); Red Blood Count 3.61 M/mm3 (4.20-5.40); Red Cell Distribution Width 12.1 % (11.6-14.4); Reticulocyte Hemoglobin Conten 37.1 pg (28.0-35.0); Reticulocyte Percent 1.41 % (0.50-1.50); Reticulocytes Absolute 0.05 M/mm3 (0.02-0.10); White Blood Count 5.6 K/mm3 (4.8-10.8)
[2024-08-30 08:52] LABS: Creatinine Urine 267.98 mg/dL (40-278); Total Protein Urine Random 15.9 mg/dL (0.0-11.9); Ur Ttl Prot Creatinine Ratio 0.06 mg/mg (0-0.20)
[2024-08-30 10:02] LABS: Albumin Level 3.4 g/dL (3.4-5.0); Anion Gap 7 mmol/L (4-12); Blood Urea Nitrogen 24 mg/dL (7-18); Calcium 9.2 mg/dL (8.5-10.1); Carbon Dioxide 28 mmol/L (21-32); Chloride 102 mmol/L (98-108); Estimated Glomerular Filt Rate 35; Ferritin 281 ng/mL (8-252); Glucose 104 mg/dL (70-99); Iron 67 ug/dL (50-170); Osmolality Calculated 288 mOsm/kg (285-295); Phosphorus 3.5 mg/dL (2.6-4.7); Potassium 3.8 mmol/L (3.5-5.1); Sodium 137 mmol/L (136-145)
[2024-08-31 14:09] LABS: Parathyroid Intact 18 pg/mL (16-77)
[2024-09-01 06:03] LABS: Vitamin D 25 Hydroxy 38 ng/mL (30-100)
== END 2024-08-30 08:19 | disposition home or self-care (01) ==
LOC: CHSLAB 08:23
PROVIDERS: PCP Internal Medicine; Visit Provider Internal Medicine Nephrology
DX: N18.32 Chronic kidney disease, stage 3b (principal); E11.22 Type 2 diabetes mellitus with diabetic chronic kidney disease; I12.9 Hypertensive chronic kidney disease with stage 1 through stage 4 chronic kidney disease, or unspecified chronic kidney disease; N25.81 Secondary hyperparathyroidism of renal origin; E55.9 Vitamin D deficiency, unspecified; D64.9 Anemia, unspecified
CPT/HCPCS: 36415; 80069; 82306; 82570; 82728; 83540; 83970; 84156; 85027; 85046

== ENCOUNTER 2024-09-01 01:15 | Day surgery (SDC) | payer OTHER, SELFPAY ==
[2024-08-25 13:23] VITALS: BMI 43.6
--- NOTE | 2024-08-26 12:27 | PC.NURSE ---
Spoke with patient regarding medication Eliquis. Patient verbalizes understanding that the last dose is to be taken on 08/29/2024 and the Endoscopist will instruct them when to restart after the procedure.
--- OUTSIDE RECORDS SUMMARY | 2024-09-01 01:17 | XMS_ITS | Clinical Summary ---
Author Organization [facility] [address] Address [address] [place] [address] Care Team Providers Care Crane Oiler Name Role Phone Catracho Marshall MD Primary Care Provider + [phone] Allergies Active Allergy Reactions Criticality Noted Date [...] artery disease of n ative artery of [place] heart with stable angina pectoris 07/19/2023 Presence of electronic cardiac device 06/19/2023 Abnormal stress test 06/08/2023 Chest pain 06/08/2023 Status post placement of implantable loop record er 01/05/2023 Overview (01/05/2023): Medtronic LNQ22 Loop Recorder. Dx; TIA, monitor for Afib. DOI 01/20/2023-[place]. Nintu Oy remote monitoring. Non-sustained ventricular tachycardia 01/02/2023 TIA (transient ischemic attack) 01/02/2023 Essential hypertension 01/02/2023 Dyslipidemia 01/02/2023 Encounters Date Type Department Care Team Description 08/25/2024 Telephone [facility] Cardiology [address] [facility] 8th [place] [address] [place] [address] Taiwo Marshall MD Surgical Clearance (Colonoscopy) 08/24/2024 Orders Only [facility] Health Information Management [address] [place] [address] Scanning, Provider 08/10/2024 11:15 AM CDT Office Visit [facility] Cardiology [address] [facility] [address] [place] [address] Taiwo Marshall MD NSVT (nonsustained ventricular tachycardia) ([facility]) 07/21/2024 Orders Only [facility] Cardiology [address] [facility] Medical Office Building [address] [place] [address] Tiara Hartman MD 07/04/2024 Orders Only [facility] Cardiology [address] [facility] Medical Office Building [address] [place] [address] Tiara Hartman MD 06/06/2024 Telephone [facility] Cardiology [address] [facility] 8th [place] [address] [place] [address] Tiara Hartman MD from Last 3 Months [...] 06/27/2027 06/26/2017 Medical Devices Implanted Type Area Reinsurance Analyst Device Identifier Shelf Expiration Date Model / Serial / Lot Saffron Digital Monitor Lux-Dx Ii Insertable Video Player Mechanic [id number] - [id number] - [id number] Implanted:Qty: 1 on 10/28/2023 by Tiara Hartman MD at [facility] Implantable Loop Recorder Saff[employer] 03/08/2025 M312 / [id number] / [id number] Procedures Procedure Name Priority Date/Time Associated Diagnosis [...] Leads (BL) Normal battery parameters Presenting Rhythm (CA) Normal Sinus Rhythm Arrhythmic events (AE) No new arrhythmic events in monitoring period Transmission Information (TI) Device Summary Report Procedure Note Tiara Hartman MD - 08/24/2024 Interpretation Summary: Battery and Leads (BL) Normal battery parameters Presenting Rhythm (CA) Normal Sinus Rhythm Arrhythmic events (AE) No new arrhythmic events in monitoring period Transmission Information (TI) Device Summary Report us Provider Scanning CV CARDIAC SERVICES PROCEDURES Final Result * DEVICE CHECK - REMOTE (07/21/2024 11:00 AM CDT) Anatomical Region Laterality Modality Other 07/21/2024 11:0 0 AM CDT Narrative 08/08/2024 10:46 AM CDT Interpretation Summary: Battery and Leads (BL) Normal battery parameters Presenting Rhythm (CA) Normal Sinus Rhythm Arrhythmic events (AE) No new arrhythmic events in monitoring period Transmission Information (TI) Device Summary Report Implant indication: Cryptogenic Stroke Procedure Note Tiara Hartman MD - 08/08/2024 Interpretation Summary: Battery and Leads (BL) Normal battery parameters Presenting Rhythm (CA) Normal Sinus Rhythm Arrhythmic events (AE) No [...] Leads (BL) Normal battery parameters Presenting Rhythm (CA) Sinus Bradycardia Arrhythmic events (AE) No new arrhythmic events in monitoring period Transmission Information (TI) Implant indication: Cryptogenic Stroke Device Summary Report Procedure Note Tiara Hartman MD - 07/07/2024 Interpretation Summary: Battery and Leads (BL) Normal battery parameters Presenting Rhythm (CA) Sinus Bradycardia Arrhythmic events (AE) No new arrhythmic events in monitoring period Transmission Information (TI) Implant indication: Cryptogenic Stroke Device Summary Report Tiara Hartman MD CV CARDIAC SERVICES PROCEDURES Final Result from Last [id number] [place] [address] [facility] Advance Directives For more information, please contact: [phone] * Full Code (Latest Code Status on File) Date Activated Date Inactivated Comments 07/01/2023 10:33 AM 07/01/2023 4:53 PM * Full Code Date Activated Date Inactivated Comments 06/19/2023 8:03 AM 06/20/2023 4:38 AM Care Teams Crane Oiler Relationship Specialty Start Date End Date Catracho Marshall MD [address] [place] [place] [id number] PCP - General Internal Medicine 12/05/22
--- OUTSIDE RECORDS SUMMARY | 2024-09-01 01:17 | XMS_ITS | Encounter Summary ---
Author Organization [facility] Address [address] [place] [address] Phone Care Team Providers Care Leadlighter Name Role Phone Catracho Marshall MD Primary Care Provider [phone] Encounter Details Date Type Department Care Team [...] on filedocumented in this encounter Care Teams Leadlighter Relationship Specialty Start Date End Date Catracho Marshall MD [address] [place] [address] PCP - General Internal Medicine 12/05/22 documented as of this encounter
--- OUTSIDE RECORDS SUMMARY | 2024-09-01 01:17 | XMS_ITS | Encounter Summary ---
Author Organization [facility] Address [address] [place] [address] Phone Care Team Providers Care Filter Plant Supervisor Name Role Phone Catracho Marshall MD Primary Care Provider + [phone] Encounter Details Date Type Department Care Team (Latest Contact Info) Description 01/06/2024 Orders Only [facility] Crystal Barfield, JUDY [address] [facility] [address] [place], [place] [phone] Social History Tobacco Use Types Packs/Day Years [...] on filedocumented in this encounter Care Teams Filter Plant Supervisor Relationship Specialty Start Date End Date Catracho Marshall MD [address] [place], [place] [id number] PCP - General Internal Medicine 12/05/22 documented as of this encounter
--- OUTSIDE RECORDS SUMMARY | 2024-09-01 01:17 | XMS_ITS | Continuity of Care Document ---
Author Name [facility] Organization [facility] Care Team Providers Care Helicopter Repairer Name Role Phone [facility] Unavailable Unavailable Medications Combined list of outpatient [...] with your doctor before becoming . 07/29/2024 [id number] 2023 180 [employer] Dom [facility] [place] apixaban 5 mg tablet 5 mg, Oral, [...] grapefru it and grapefru it juice. 06/07/2024 [id number] 4 [address] [place] [address] Dom [facility] ([facility] atorvastati n 80 mg tablet See Instruct [...] use exactly as directed . Active 09/21/2024 [id number] 4 [address] [place] [address] Dom [facility] ([facility] carvedilol (U/D) 25 MG ORAL TAB May cause drowsine ss.Be careful if taking OTCs.John e with food/mil k.Take or use exactly as directed . 06/28/2024 [id number] 4 [address] [place] [address] Dom [facility] ([facility] carvedilol 12.5 mg tablet See Instruct ions, [...] as directed .Obtain advice for OTCs. 07/29/2024 [id number] 4 [address] [place] [address] Dom [facility] ([facility] citalopram 40 mg tablet 40 mg, Oral, [...] directed .Do not take if . 07/14/2024 [id number] 4 2023 90 [employer] Dom [facility] ([facility] dapaglifloz in 10 mg tablet 10 mg, [...] becoming .Store in original package. Active 09/07/2024 [id number] 4 [address] [place] [address]) Dulaglutide 3 mg/mL, Injection, 0.5mL Autoinjecto r refriger ateCheck with your doctor before becoming .Store in original package. Active 10/04/2024 [id number] 4 [address] [place] [address] Dom [facility] ([facility] Eliquis 5 mg tablet 5 mg, Oral, [...] (TriCor Eq.) Tablet 48 mg Oral 06/07/2024 [id number] 06/08 4 [address] [place] [address] Dom LEWIS ([facility]) fenofibrate 48 mg tablet See Instruct ions, [...] 2024 90.0 Ambulat ory Pharmac y Fish Oil/[place] 3 Fatty Acids (Fish Oil Eq.) Capsule Conventiona l 1,000 mg Oral Take with food/mil k. 06/11/2024 [id number] 4 [address] [place] [address] Dom [facility] ([facility] fluticasone 50 mcg/inh nasal spray [16g] 100 mcg, Nostril- Both, # 48 g, 3 total refill(s ), Hard Stop Nostri l-Both (into the nose) Ordered 02/01/2025 4 2023 48.0 Ambulat ory Pharmac y Freestyle Armona Lite Monitor See Instruct ions, # 1 [...] use exactly as directed . Active 09/02/2024 [id number] 4 [address] [place] [address]) INDAPAMIDE 2.5 MG ORAL TAB Take orange juice or banana.A void exposure to sun.Take or use exactly as directed . 06/08/2024 [id number] 4 [address] [place] [address]) indapamide 2.5 mg tablet 2.5 mg, Oral, [...] or use exactly as directed . 07/14/2024 [id number] 4 2023 180 [facility] Dom [facility] ([facility] isosorbide dinitrate 20 mg tablet 20 mg, [...] directed .Do not take if . 06/08/2024 [id number] 4 2023 90 [facility] Dom [facility]WIS ([facility] losartan 100 mg tablet See Instruct ions, [...] as directed .Obtain advice for OTCs. 07/29/2024 [id number] 4 2023 180 [facility] Dom [facility]WIS ([facility] nortriptyli ne 25 mg capsule 50 mg, [...] grapefru it and grapefru it juice. 07/27/2024 [id number] 4 2023 180 [employer] Dom [facility] ([facility]) ranolazine ER 500 mg/12 hour tablet See [...] prohibit s transfer of prescrip tion. 01/26/2024 [id number] 4 2023 90 [employer] Dom [facility]WIS ([facility]) Immunizations Combined list of available immunizations from the Department of Defense and Veterans Affairs facilities. Immunization Series Date Given Administered By Site Reaction Lot Number CVX Code Drug Waist Cutter Status Comments Source Influenza, injectable, MDCK, preservative free, quadrivalent 2019 ADRIA FLETCHER () Not Given Influenza , injectabl e, MDCK, preservat jaswinder free, quadrival ent DoD Procedures Combined list of: 1) Procedures from Department of Veterans Affairs facilities going back up to thelast 18 months, not all [place] non-surgical procedures are included; 2) All procedures [...] Plan No data available for this section 09/01/2024 Ambulatory Pharmacy Functional Status Combined list of recent functional and cognitive assessments recorded at Department of Defense and Veterans Affairs (VA).VA Functional [place] Measurement (FIM) Scale: 1 = Total Assistance (Subject = 0% +), 2 = Maximal Assistance (Subject = 25% +), 3 = Moderate Assistance (Subject = 50% +), 4 = Minimal Assistance (Subject = 75% +), 5 = Supervision, 6 = Modified Yellowstone (Device), 7 = Complete [place] (Timely, Safely). Assessment Date/Time Source Assessment Type Assessment Skill Assessment Score Assessment Details No data available for this section
--- OUTSIDE RECORDS SUMMARY | 2024-09-01 01:17 | XMS_ITS | Clinical Summary ---
Author Organization [facility] Address [address] [place] [address] Care Team Providers Care Substation Inspector Name Role Phone Unavailable Primary Care Provider [...] 100.7 kg (222 lb) 03/13/2008 11:31 AM WHEEL MOLDER Height 157.5 cm (5' 2 ) 03/13/2008 11:31 AM WHEEL MOLDER Body Mass Index 40.6 03/13/2008 11:31 AM WHEEL MOLDER Plan of Treatment Health Maintenance Due Date [...]
--- OUTSIDE RECORDS SUMMARY | 2024-09-01 01:17 | XMS_ITS | Encounter Summary ---
Author Organization [facility] Address [address] [place] [address] Phone Care Team Providers Care Experimental Mechanic Name Role Phone Catracho Marshall MD Primary Care Provider + [phone] Encounter Details Date Type Department Care Team (Latest Contact Info) Description 10/03/2022 Orders Only [facility] Crystal Barfield RN [address] [facility] [address] [place], [place] [id number] Social History Tobacco Use Types Packs/Day Years [...] on filedocumented in this encounter Care Teams Experimental Mechanic Relationship Specialty Start Date End Date Catracho Marshall MD [address] [place] [address] PCP - General Internal Medicine 12/05/22 documented as of this encounter
--- OUTSIDE RECORDS SUMMARY | 2024-09-01 01:17 | XMS_ITS | Encounter Summary ---
Author Organization [facility] Address [address] [place] [address] Phone Care Team Providers Care Senior Bi Architect Name Role Phone Catracho Marshall MD Primary Care Provider + [phone] Encounter Details Date Type Department Care Team (Latest Contact Info) Description 04/03/2023 Orders Only [facility] Crystal Barfield RN [address] [facility] [address] [place], [place] [id number] Social History Tobacco Use Types Packs/Day Years [...] on filedocumented in this encounter Care Teams Senior Bi Architect Relationship Specialty Start Date End Date Catracho Marshall MD [address] [place] [id number] PCP - General Internal Medicine 12/05/22 documented as of this encounter
--- OUTSIDE RECORDS SUMMARY | 2024-09-01 01:17 | XMS_ITS | Encounter Summary ---
Author Organization [facility] Address [address] [place] [address] Phone Care Team Providers Care Head Of Product Name Role Phone Catracho Marshall MD Primary Care Provider + [phone] Encounter Details Date Type Department Care Team (Latest Contact Info) Description 02/23/2023 Orders Only [facility] Crystal Barfield, JUDY [address] [facility] [address] [place], [place] [id number] Social History Tobacco Use Types Packs/Day Years [...] in this encounter Care Teams Head Of Product Relationship Specialty Start Date End Date Catracho Marshall MD [address] [place] [address] PCP - General Internal Medicine 12/05/22 documented as of this encounter
--- OUTSIDE RECORDS SUMMARY | 2024-09-01 01:17 | XMS_ITS | Encounter Summary ---
Author Organization [facility] Address [address] [place] [address] Phone Care Team Providers Care Training Analyst Name Role Phone Catracho Marshall MD Primary Care Provider + [phone] Encounter Details Date Type Department Care Team (Latest Contact Info) Description 11/25/2022 Orders Only [facility] Crystal Barfield RN [address] [facility] [address] [place], [place] [phone] Social History Tobacco Use Types Packs/Day Years [...] on filedocumented in this encounter Care Teams Training Analyst Relationship Specialty Start Date End Date Catracho Marshall MD [address] [place] [address] PCP - General Internal Medicine 12/05/22 documented as of this encounter
--- OUTSIDE RECORDS SUMMARY | 2024-09-01 01:17 | XMS_ITS | Encounter Summary ---
Author Organization [facility] Address [address] [place] [address] Phone Care Team Providers Care Commercial Glazier Name Role Phone Catracho Marshall MD Primary Care Provider + [phone] Encounter Details Date Type Department Care Team (Latest Contact Info) Description 12/14/2023 Orders Only [facility] Crystal Barfield, JUDY [address] [facility] [address] [place], [place] [id number] Social History Tobacco Use Types Packs/Day Years [...] filedocumented in this encounter Care Teams Commercial Glazier Relationship Specialty Start Date End Date Catracho Marshall MD [address] [place], [place] [phone] PCP - General Internal Medicine 12/05/22 documented as of this encounter
--- OUTSIDE RECORDS SUMMARY | 2024-09-01 01:17 | XMS_ITS | Referral Summary ---
Author Organization [facility] [address] Address [address] [place] [address] Care Team Providers Care Nutrition Services Worker Name Role Phone Catracho Marshall MD Primary Care Provider [phone] Encounters Date Type Department Care Team Description 08/25/2024 Telephone [facility] Cardiology [address] [place] [address] 8th [place] [address] [place] [address] Taiwo Marshall MD Surgical Clearance (Colonoscopy) 08/24/2024 Orders Only [facility] Health Information Management [address] [place] [address] Scanning, Provider 08/10/2024 11:15 AM CDT Office Visit [facility] Cardiology [address] [facility] [address] [place] [address] Taiwo Marshall MD NSVT (nonsustained ventricular tachycardia) ([facility]) 07/21/2024 Orders Only [facility] Cardiology [facility] [address] [place] [phone] Tiara Hartman MD 07/04/2024 Orders Only [facility] Cardiology [facility] [address] [place] [address] Tiara Hartman MD 06/06/2024 Telephone [facility] Cardiology Count includes the [facility] 8th [place] [address] [place] [phone] Tiara Hartman MD from Last 3 Months [...] artery disease of n ative artery of yuhaaviatam heart with stable angina pectoris 07/19/2023 Presence [...] on file Medical Devices Implanted Type Area Numerical Control Nesting Operator Device Identifier Shelf Expiration Date Model / Serial / Lot Teleborder Monitor Lux-Dx Ii Insertable Psych Sales Specialist [id number] - [id number] - [id number] Implanted:Qty: 1 on 10/28/2023 by Tiara Hartman MD at [facility] Implantable Loop Recorder Teleborder 03/08/2025 [id number] / [id number] / [id number] Procedures Procedure Name Priority Date/Time Associated Diagnosis [...] Leads (BL) Normal battery parameters Presenting Rhythm (OR) Normal Sinus Rhythm Arrhythmic events (AE) No new arrhythmic events in monitoring period Transmission Information (TI) Device Summary Report Procedure Note Tiara Hartman MD - 08/24/2024 Interpretation Summary: Battery and Leads (BL) Normal battery parameters Presenting Rhythm (OR) Normal Sinus Rhythm Arrhythmic events (AE) No new arrhythmic events in monitoring period Transmission Information (TI) Device Summary Report Provider Scanning [facility] C[facility] SERVICES PROCEDURES Final Result * DEVICE CHECK - REMOTE (07/21/2024 11:00 AM CDT) Anatomical Region Laterality Modality Other 07/21/2024 11:0 0 AM CDT Narrative 08/08/2024 10:46 AM CDT Interpretation Summary: Battery and Leads (BL) Normal battery parameters Presenting Rhythm (OR) Normal Sinus Rhythm Arrhythmic events (AE) No new arrhythmic events in monitoring period Transmission Information (TI) Device Summary Report Implant indication: Cryptogenic Stroke Procedure Note Tiara Hartman MD - 08/08/2024 Interpretation Summary: Battery and Leads (BL) Normal battery parameters Presenting Rhythm (OR) Normal Sinus Rhythm Arrhythmic events (AE) No [...] Leads (BL) Normal battery parameters Presenting Rhythm (OR) Sinus Bradycardia Arrhythmic events (AE) No new arrhythmic events in monitoring period Transmission Information (TI) Implant indication: Cryptogenic Stroke Device Summary Report Procedure Note Tiara Hartman MD - 07/07/2024 Interpretation Summary: Battery and Leads (BL) Normal battery parameters Presenting Rhythm (OR) Sinus Bradycardia Arrhythmic events (AE) No new arrhythmic events in monitoring period Transmission Information (TI) Implant indication: Cryptogenic Stroke Device Summary Report Tiara Hartman MD [facility] CARDIAC SERVICES PROCEDURES Final Result from Last 3 Months Insurance [facility] [id number] [place] [address] [facility] Advance Directives For more information, please contact: [phone] * Full Code (Latest Code Status on File) Date Activated Date Inactivated Comments 07/01/2023 10:33 AM 07/01/2023 4:53 PM * Full Code Date Activated Date Inactivated Comments 06/19/2023 8:03 AM 06/20/2023 4:38 AM Care Teams Nutrition Services Worker Relationship Specialty Start Date End Date Catracho Marshall MD [address] [id number] PCP - General Internal Medicine 12/05/22
--- OUTSIDE RECORDS SUMMARY | 2024-09-01 01:17 | XMS_ITS | Encounter Summary ---
Author Organization [facility] Address [address] [place] [address] Phone Care Team Providers Care Phlebotomy Supervisor Name Role Phone Catracho Marshall MD Primary Care Provider + [phone] Encounter Details Date Type Department Care Team (Latest Contact Info) Description 09/08/2005 Orders Only [facility] Crystal Barfield RN [address] [facility] [address] [place], [place] [phone] Social History Tobacco Use Types Packs/Day Years [...] on filedocumented in this encounter Care Teams Phlebotomy Supervisor Relationship Specialty Start Date End Date Catracho Marshall MD [address] [place] [address] PCP - General Internal Medicine 12/05/22 documented as of this encounter
[2024-09-01 07:42] VITALS: BP 126/66; PULSE 66; RESP 18; TEMP 36.3; O2SAT 96; BMI 43.4
[2024-09-01] MEDS: LACTATED RINGERS 1,000 ML 150 ML IV CONT (07:49)
[2024-09-01 07:52] LABS: Glucose Point of Care 91 mg/dl (65-105)
--- NOTE | 2024-09-01 08:00 | WPDANESEPPF ---
Anes - Initial Pre Proc Eval Procedure: Operation Date: 09/01/24 09:00 Proposed Procedures p Colonoscopy - Keith Alatorre MD Date/Time: 09/01/24 08:00 Surgeon: Keith Alatorre MD Pre Op Diagnosis: Melena Patient Data Age: 64 Gender: F Height: 1.55 m Weight: 104.2 kg Last Vital Signs Temp 97.3 F L 09/01/24 07:42 Pulse 66 09/01/24 07:42 Resp 18 09/01/24 07:42 BP 126/66 09/01/24 07:42 Pulse Ox 96 09/01/24 07:42 O2 Del Method Room Air 09/01/24 07:42 Allergies Allergy/AdvReac Type Severity Reaction Status Date / Time clarithromycin (From axin) AdvReac Mild Gastrointestinal Verified 09/01/24 07:40 Upset lisinopril AdvReac Mild Unknown Verified 09/01/24 07:40 isosorbide AdvReac Headache Verified 09/01/24 07:40 Home Medications ?Medication ?Instructions ?Recorded ?Confirmed ?Type aspirin 81 mg tablet,delayed 81 mg PO HS 07/23/19 09/01/24 History release citalopram 40 mg tablet 40 mg PO DAILY 07/23/19 09/01/24 History estradiol 1 mg tablet 1 mg PO DAILY 07/23/19 09/01/24 History fztnameb-zpk-knaud acid 0.4 1 tablet PO DAILY 07/23/19 09/01/24 History mg-lycopene 300 mcg-lutein 250 mcg tablet (Certa[employer]ite Senior) pantoprazole 40 mg tablet,delayed 40 mg PO HS 07/23/19 09/01/24 History release zolpidem 5 mg tablet 5 mg PO HS 07/23/19 09/01/24 History alprazolam 0.25 mg tablet 0.25 mg PO Q6-8H PRN anxiety 02/11/24 08/25/24 History apixaban 5 mg tablet (Eliquis) 5 mg PO BID 02/11/24 09/01/24 History atorvastatin 80 mg tablet 80 mg PO QHS 02/11/24 09/01/24 History carvedilol 25 mg tablet 25 mg PO Q12H 02/11/24 09/01/24 History fenofibrate nanocrystallized 48 mg 48 mg PO DAILY 02/11/24 09/01/24 History tablet latanoprost 0.005 % eye drops 1 drp EACH EYE QHS 02/11/24 09/01/24 History omega-3 acid ethyl esters 1 gram 2 cap PO DAILY 02/11/24 09/01/24 History capsule sacubitril 24 mg-valsartan 26 mg 1 tablet PO BID 02/11/24 09/01/24 History tablet (Entresto) ipratropium bromide 42 mcg (0.06 2 spray intranasal QID 08/03/24 09/01/24 History %) nasal spray tirzepatide 5 mg/0.5 mL 7.5 mg subcut WEEKLY 08/03/24 09/01/24 History subcutaneous pen injector (Mounjaro) Laboratory Tests 09/01/24 07:49 POC Capillary Glucose 91 mg/dl (65-105) Patient hx anesthesia problems: none Family hx anesthesia problems: none Results Review: All pre-operative results and documents have been reviewed as part of the pre-operative evaluation. [facility] Past Medical History Medical History Depression with anxiety Conjunctivitis History of colon polyps History of blood transfusion HLD (hyperlipidemia) HTN (hypertension) Asymptomatic PVCs Diabetes mellitus Surgical History Surgical History H/O colonoscopy with polypectomy History of ventral hernia repair 05/07/20 robotic assisted repair of incarcerated periumbilical ventral incisional hernia with 15 x 10 cm symbotex mesh in underlay position Hx of tonsillectomy Hx laparoscopic cholecystectomy History of laparoscopic appendectomy H/O: hysterectomy 1999 History of appendectomy Family History Family History Mother , age 58 Acute myocardial infarction Heart disease Lung cancer Sibling Hypothyroid Breast cancer Nonalcoholic steatohepatitis (PRICE) Grandparent Heart disease Lung cancer Polio Grandparent No problems noted. Father Heart disease Cerebrovascular accident History of heart artery stent Other Polio Social History Social History Social History: The patient lives with her and has 1 son. 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 No alcohol marijuana or illicit drugs. Code status full code Years smoked: 15 Smoking status: Former smoker Tobacco type: cigarettes Second hand tobacco smoke exposure: No Smoking end date: 04/27/89 Alcohol intake: current Alcohol use details: 2X PER YEAR Substance use: never Substance use type: does not use Other substance usage details: 2X PER YEAR Do You Feel Safe in your Home?: Yes Lack of Transportation: No Lack of Food: Never True Current Housing: I Have Housing Concerned About Future Housing: No Difficulty Paying Gas/Electric Bills: No Difficulty Paying for Meds: No Currently Unemployed: No Education: Bachelor's Degree Difficulty w/ Childcare or Family Care: No Living arrangements: with family Occupation/Education: retired Additional occupation/education comments: [employer] Gender identity (if verbalized by the patient): Female Sexual Orientation (if Verbalized by the Patient): Straight or Heterosexual Spiritual care concerns: No Anes - Eval Final PreProcedure Day of Procedure 09/01/24 08:00 Patient weight: morbidly obese Lungs: normal air movement Airway: Mallampati scale class 1 Neurological: alert and oriented Last oral intake: >/= 8 hours ASA classification: IV Emergent: no Anesthetic plan: proceed Anesthesia type and monitoring: general GIVS and standard monitoring Results Review: All pre-operative results and documents have been reviewed as part of the pre-operative evaluation. Pt w multiple comorbid condtions. HTN, hyperlipidemia, DM fsbs 91, CKD w GFR 35 range, CAD noted but no stents placed. Informed Consent: The patient's anesthetic plan and its attendant risks and benefits were discussed with the patient/family/POA. Questions were solicited and answers provided to the satisfaction of the patient/family/POA.
[2024-09-01] MEDS: SODIUM CHLORIDE 0.9% IV 1,000 ML 30 ML IV CONT (08:06)
--- NOTE | 2024-09-01 08:34 | PM.HPGS ---
History of Present Illness History of Present Illness Consent: Risks, benefits, and alternatives have been discussed and questions answered. Patient agrees to proceed with procedure. Chief complaint: Melena Narrative: Delmar Hummel is a 64 year old female with occult blood in stool, last colonoscopy 2020 Review of Systems Review of Systems: All systems reviewed & are unremarkable except as noted in HPI and below PMFSH Past Medical History Medical History (Updated 09/01/24 @ 08:35 by Keith Alatorre MD) Occult blood in stools Depression with anxiety Conjunctivitis History of colon polyps History of blood transfusion HLD (hyperlipidemia) HTN (hypertension) Asymptomatic PVCs Diabetes mellitus Surgical History Surgical History H/O colonoscopy with polypectomy History of ventral hernia repair 05/07/20 robotic assisted repair of incarcerated periumbilical ventral incisional hernia with 15 x 10 cm symbotex mesh in underlay position Hx of tonsillectomy Hx laparoscopic cholecystectomy History of laparoscopic appendectomy H/O: hysterectomy 1999 History of appendectomy Family History Family History Mother , age 58 Acute myocardial infarction Heart disease Lung cancer Sibling Hypothyroid Breast cancer Nonalcoholic steatohepatitis (PRICE) Grandparent Heart disease Lung cancer Polio Grandparent No problems noted. Father Heart disease Cerebrovascular accident History of heart artery stent Other Polio Social History Social History Social History: The patient lives with her and has 1 son. 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 No alcohol marijuana or illicit drugs. Code status full code Years smoked: 15 Smoking status: Former smoker Tobacco type: cigarettes Second hand tobacco smoke exposure: No Smoking end date: 04/27/89 Alcohol intake: current Alcohol use details: 2X PER YEAR Substance use: never Substance use type: does not use Other substance usage details: 2X PER YEAR Do You Feel Safe in your Home?: Yes Lack of Transportation: No Lack of Food: Never True Current Housing: I Have Housing Concerned About Future Housing: No Difficulty Paying Gas/Electric Bills: No Difficulty Paying for Meds: No Currently Unemployed: No Education: Bachelor's Degree Difficulty w/ Childcare or Family Care: No Living arrangements: with family Occupation/Education: retired 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 Gender identity (if verbalized by the patient): Female Sexual Orientation (if Verbalized by the Patient): Straight or Heterosexual Spiritual care concerns: No Meds Home Medications and Allergies Home Medications ?Medication ?Instructions ?Recorded ?Confirmed ?Type aspirin 81 mg tablet,delayed 81 mg PO HS 07/23/19 09/01/24 History release citalopram 40 mg tablet 40 mg PO DAILY 07/23/19 09/01/24 History estradiol 1 mg tablet 1 mg PO DAILY 07/23/19 09/01/24 History icryrzio-hce-rcphb acid 0.4 1 tablet PO DAILY 07/23/19 09/01/24 History mg-lycopene 300 mcg-lutein 250 mcg tablet (CertaVite Senior) pantoprazole 40 mg tablet,delayed 40 mg PO HS 07/23/19 09/01/24 History release zolpidem 5 mg tablet 5 mg PO HS 07/23/19 09/01/24 History alprazolam 0.25 mg tablet 0.25 mg PO Q6-8H PRN anxiety 02/11/24 08/25/24 History apixaban 5 mg tablet (Eliquis) 5 mg PO BID 02/11/24 09/01/24 History atorvastatin 80 mg tablet 80 mg PO QHS 02/11/24 09/01/24 History carvedilol 25 mg tablet 25 mg PO Q12H 02/11/24 09/01/24 History fenofibrate nanocrystallized 48 mg 48 mg PO DAILY 02/11/24 09/01/24 History tablet latanoprost 0.005 % eye drops 1 drp EACH EYE QHS 02/11/24 09/01/24 History omega-3 acid ethyl esters 1 gram 2 cap PO DAILY 02/11/24 09/01/24 History capsule sacubitril 24 mg-valsartan 26 mg 1 tablet PO BID 02/11/24 09/01/24 History tablet (Entresto) ipratropium bromide 42 mcg (0.06 2 spray intranasal QID 08/03/24 09/01/24 History %) nasal spray tirzepatide 5 mg/0.5 mL 7.5 mg subcut WEEKLY 08/03/24 09/01/24 History subcutaneous pen injector (Radha) Allergies Allergy/AdvReac Type Severity Reaction Status Date / Time clarithromycin (From Biaxin) AdvReac Mild Gastrointestinal Verified 09/01/24 07:40 Upset lisinopril AdvReac Mild Unknown Verified 09/01/24 07:40 isosorbide AdvReac Headache Verified 09/01/24 07:40 Vital Signs Vital Signs - 24 hr 09/01/24 07:42 Temperature 97.3 F L Pulse Rate 66 Respiratory Rate 18 Blood Pressure 126/66 Pulse Oximetry 96 Oxygen Delivery Room Air Exam Const: General: comfortable and no acute distress HENMT: Face/Nose/Sinus: Normal nares present Eyes: General: appearance normal, both eyes and all related structures Neck: Neck: no JVD Resp: Auscultation: clear to auscultation bilaterally Cardio: Rate: regular rate Rhythm: regular rhythm GI: Inspection: non-distended GI Palp: Yes Soft to palpation Skin: General skin exam: normal color Neuro: General: gait normal Speech: normal speech Extrem: General: normal to inspection Psych: Mental Status: mental status grossly normal Assessment and Plan Assessment and plan (1) Occult blood in stools: Code(s): R19.5 - Other fecal abnormalities Status: Acute Assessment and Plan: colonoscopy
[2024-09-01 08:50] VITALS: BP 126/66; PULSE 66; RESP 18; O2SAT 97
[2024-09-01 09:00] VITALS: BP 137/70; PULSE 56; RESP 16; O2SAT 97
[2024-09-01 09:10] VITALS: BP 121/27; PULSE 53; RESP 17; O2SAT 99
== END 2024-09-01 09:26 | disposition home or self-care (01) ==
PROVIDERS: PCP Internal Medicine; Referring Provider Internal Medicine; Visit Provider Internal Medicine Gastroenterology
PROC: 0DJD8ZZ Inspection of Lower Intestinal Tract, Via Natural or Artificial Opening Endoscopic (ICD-10-PCS; CPT 45378; principal; 2024-09-01 09:00)
DX: K64.8 Other hemorrhoids (principal); K57.30 Diverticulosis of large intestine without perforation or abscess without bleeding; E78.5 Hyperlipidemia, unspecified; E11.22 Type 2 diabetes mellitus with diabetic chronic kidney disease; I12.9 Hypertensive chronic kidney disease with stage 1 through stage 4 chronic kidney disease, or unspecified chronic kidney disease; N18.9 Chronic kidney disease, unspecified; I25.10 Atherosclerotic heart disease of native coronary artery without angina pectoris; F41.8 Other specified anxiety disorders; I49.3 Ventricular premature depolarization; E66.01 Morbid (severe) obesity due to excess calories; Z68.41 Body mass index [BMI] 40.0-44.9, adult; Z79.82 Long term (current) use of aspirin; Z79.01 Long term (current) use of anticoagulants; Z79.85 Long-term (current) use of injectable non-insulin antidiabetic drugs; Z98.890 Other specified postprocedural states; Z90.49 Acquired absence of other specified parts of digestive tract; Z87.891 Personal history of nicotine dependence; Z86.0100 Personal history of colon polyps, unspecified; Z80.1 Family history of malignant neoplasm of trachea, bronchus and lung; Z80.3 Family history of malignant neoplasm of breast; Z82.49 Family history of ischemic heart disease and other diseases of the circulatory system
CPT/HCPCS: 45378; 82948; J2003; J2704; J7030; J7040; J7120

== ENCOUNTER 2024-09-28 15:46 | Outpatient (CLI) | payer OTHER, SELFPAY ==
--- NOTE | ~2024-09-28 | XR_ITS ---
XR knee RT 3V 09/28/2024 16:03 Indication: Right knee pain Procedure: 4 views right knee Comparison: 02/10/2022 Findings: There is chondrocalcinosis. Mild osteoarthritis. No joint effusion. No foreign bodies. 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 Reviewed, dictated and finalized at location A. 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
--- OUTSIDE RECORDS SUMMARY | 2024-09-28 15:50 | XMS_ITS | Continuity of Care Document ---
Author Name [facility] Organization [facility] Care Team Providers Care Coke Loader Name Role Phone [facility] Unavailable Unavailable Medications Combined list of outpatient medications from Department of Defense and Veterans Affairs facilities.Medications provided include 1) outpatient medications from the last 15 months, and 2) patient-reported medications. Medication Details Route Status Patient Instructions Prescription Expires Prescription Number Last Dispense Date Ordering Provider Order Date Order Qty Source ALPRAZolam 0.25 mg tablet = 1 tab(s), Oral, every 6-8 hours as needed for acute anxiety, # 60 EA, 0 total refill(s ), Soft Stop Oral (given by mouth) Ordered 5 2024 60.0 Ambulat ory Pharmac y ALPRAZolam 0.25 mg tablet = 1 tab(s), Oral, # 60 EA, 0 total refill(s ), Hard Stop Oral (given by mouth) Complet ed 02/18/2024 4 2023 60.0 Ambulat ory Pharmac y ALPRAZolam [...] ory Pharmac y amLODIPine 2.5 mg tablet = 1 tab(s), Oral, # 90 EA, 0 total refill(s ), Hard Stop Oral (given by mouth) Discont inued 04/25/2024 2023 90.0 Ambulat ory Pharmac y APIXABAN 5 MG ORAL TAB Take or use exactly as directed .Obtain advice for OTCs.Graciela ck with your doctor before becoming . 07/29/2024 [id number] 4 [address] [place] [address] Dom [facility] apixaban 5 mg tablet 5 mg, Oral, [...] k.Take or use exactly as directed . 09/21/2024 [id number] 4 [address] [place] [address] Dom [facility] carvedilol (U/D) 25 MG ORAL TAB May cause drowsine ss.Be careful if taking OTCs.John e with food/mil k.Take or use exactly as directed . 06/28/2024 [id number] 4 [address] [place] [address] Dom [facility] carvedilol 12.5 mg tablet See Instruct ions, Oral, # 180 EA, 0 total refill(s ), Hard Stop Oral (given by mouth) Complet ed 10/15/2023 3 2023 180.0 Ambulat ory Pharmac y carvedilol 25 mg tablet See Instruct ions, # 180 EA, 0 total refill(s ), Hard Stop Complet ed 12/18/2023 3 2023 180.0 Ambulat ory Pharmac y carvedilol 25 mg tablet = 1 tab(s), Oral, BID, # 180 EA, 0 total [...] as directed .Obtain advice for OTCs. 07/29/2024 [id number] 4 2023 90 [facility] citalopram 40 mg tablet = 1 tab(s), Oral, Daily, # 90 EA, 1 total refill(s ), Soft Stop Oral (given by mouth) Ordered 5 2024 90.0 Ambulat ory Pharmac y citalopram 40 mg tablet = 1 tab(s), Oral, Daily, # 90 EA, 0 total [...] directed .Do not take if . 07/14/2024 [id number] 4 2023 90 [facility] Dom [facility] dapaglifloz in 10 mg tablet = 1 tab(s), Oral, Daily, # 90 EA, 3 total [...] doctor before becoming .Store in original package. 09/07/2024 [id number] 4 [address] [place] [address] Dom [facility] Dulaglutide 3 mg/mL, Injection, 0.5mL Autoinjecto r refriger ateCheck with your doctor before becoming .Store in original package. Active 10/04/2024 [id number] 4 [address] [place] [address] Dom [facility] Eliquis 5 mg tablet 5 mg, Oral, BID, # 180 EA, 0 total refill(s ), Hard Stop Oral (given by mouth) Discont inued 11/02/2023 3 2023 180.0 Ambulat ory Pharmac y estradiol 1 mg tablet = 1 tab(s), Oral, Daily, # 90 EA, 1 total refill(s ), Soft Stop Oral (given by mouth) Ordered 5 2024 90.0 Ambulat ory Pharmac y estradiol 1 mg tablet = 1 tab(s), Oral, Daily, # 90 EA, 0 total [...] y fluticasone 50 mcg/inh nasal spray [16g] = 2 spray(s) , Nostril- Both, # 48 g, 3 total refill(s ), Hard Stop Nostri l-Both (into the nose) Ordered 02/01/2025 4 2023 48.0 Ambulat ory Pharmac y Freestyle [place] Lite Monitor See Instruct ions, # 1 [...] sun.Take or use exactly as directed . 09/02/2024 [id number] 4 2023 90 [facility] indapamide 2.5 mg tablet 2.5 mg, Oral, [...] or use exactly as directed . 07/14/2024 [id number] 4 2023 180 [facility] Dom [facility] isosorbide dinitrate 20 mg tablet 20 mg, [...] as directed .Obtain advice for OTCs. 07/29/2024 [id number] 4 2023 180 [facility] Dom [facility] nortriptyli ne 25 mg capsule 50 mg, [...] omega-3-aci d ethyl esters 1000 mg capsule = 2 cap(s), Oral, Daily, # 180 EA, 3 total [...] y pantoprazol e EC 40 mg tablet = 1 tab(s), Oral, Daily, # 90 EA, 1 total refill(s ), Hard Stop Oral (given by mouth) Ordered 03/10/2025 5 2024 90.0 Ambulat ory Pharmac y pantoprazol e EC 40 mg tablet = 1 tab(s), Oral, Daily, # 90 EA, 0 total [...] ER [EQV Klor-Con M20] 20 mEq tablet = 1 tab(s), Oral, # 90 EA, 0 total refill(s ), Hard Stop Oral (given by mouth) Complet ed 05/03/2024 4 2024 90.0 Ambulat ory Pharmac y Ranolazine (Ranexa Eq.) Tablet 500 mg Oral Obtain advice for OTCs.May cause drowsine ss/dizzi ness.May impair driving. Swallow whole.Av oid grapefru it and grapefru it juice. 07/27/2024 [id number] 4 2023 180 [facility] ranolazine ER 500 mg/12 hour tablet See Instruct ions, # 180 EA, 3 total refill(s ), Hard Stop Complet ed 07/27/2024 4 2024 180.0 Ambulat ory Pharmac y sacubitril- valsartan 24 mg-26 mg tablet = 1 tab(s), Oral, BID, # 180 EA, 3 total refill(s ), Hard Stop Oral (given by mouth) Ordered 02/07/2025 5 2024 180.0 Ambulat ory Pharmac y tirzepatide (Mounjaro) 10 mg/0.5 mL inj-pen [4pens/2mL] See Instruct ions, # 2 mL, 0 total refill(s ), Soft Stop Notes: refriger ate Ordered 5 2024 2.0 Ambulat ory Pharmac y tirzepatide (Mounjaro) 5 mg/0.5 mL inj-pen [4pens/2mL] See Instruct ions, # 2 mL, 0 total refill(s ), Soft Stop Notes: refriger ate Discont inued 08/08/2024 5 2024 2.0 Ambulat ory Pharmac y tirzepatide (Mounjaro) 7.5 mg/0.5 mL inj-pen [4pens/2mL] See Instruct ions, # 2 mL, 0 total refill(s ), Soft Stop Notes: refriger ate Discont inued 09/06/2024 5 2024 2.0 Ambulat ory Pharmac y [...] ory Pharmac y zolpidem 5 mg tablet = 1 tab(s), Oral, # 90 EA, 0 total refill(s ), Soft Stop Oral (given by mouth) Ordered 5 2024 90.0 Ambulat ory Pharmac y zolpidem 5 mg tablet = 1 tab(s), Oral, # 90 EA, 0 total refill(s ), Hard Stop Oral (given by mouth) Discont inued 04/25/2024 4 2023 90.0 Ambulat ory Pharmac y zolpidem 5 mg tablet = 1 tab(s), Oral, # 90 EA, 0 total refill(s [...] prohibit s transfer of prescrip tion. 01/26/2024 [id number] 4 2023 90 [facility] Dom [facility] Immunizations Combined list of available immunizations from the Department of Defense and Veterans Affairs facilities. Immunization Series Date Given Administered By Site Reaction Lot Number CVX Code Drug Distillery Miller Helper Status Comments Source Influenza, injectable, MDCK, preservative free, quadrivalent 2019 ADRIA FLETCHER () Not Given Influenza , injectabl e, MDCK, preservat jaswinder free, quadrival ent DoD Procedures Combined list of: 1) Procedures from Department of Veterans Affairs facilities going back up to thelast 18 months, not all CT non-surgical procedures are included; 2) All procedures [...] Plan No data available for this section 09/28/2024 Ambulatory Pharmacy Functional Status Combined list of recent functional and cognitive assessments recorded at Department of Defense and Veterans Affairs (VA).VA Functional [place] Measurement (FIM) Scale: 1 = Total Assistance (Subject = 0% +), 2 = Maximal Assistance (Subject = 25% +), 3 = Moderate Assistance (Subject = 50% +), 4 = Minimal Assistance (Subject = 75% +), 5 = Supervision, 6 = Modified [place] (Device), 7 = Complete [place] (Timely, Safely). Assessment Date/Time Source Assessment Type Assessment Skill Assessment Score Assessment Details No data available for this section
--- OUTSIDE RECORDS SUMMARY | 2024-09-28 15:50 | XMS_ITS | Encounter Summary ---
Author Organization [facility] Address [address] [place] [address] Phone Care Team Providers Care Graphic Production Artist Name Role Phone Catracho Marshall MD Primary Care Provider + [phone] Encounter Details Date Type Department Care Team (Latest Contact Info) Description 10/03/2022 Orders Only [facility] Crystal Barfield RN [address] [facility] [address] [place], [place] [id number] Social History Tobacco Use Types Packs/Day Years [...] on filedocumented in this encounter Care Teams Graphic Production Artist Relationship Specialty Start Date End Date Catracho Marshall MD [address] [place] [address] PCP - General Internal Medicine 12/05/22 documented as of this encounter
--- OUTSIDE RECORDS SUMMARY | 2024-09-28 15:50 | XMS_ITS | Referral Summary ---
Author Organization [facility] [address] Address [address] [place] [address] Care Team Providers Care Participant Administrator Name Role Phone Catracho Marshall MD Primary Care Provider [phone] Encounters Date Type Department Care Team Description 09/22/2024 Orders Only [facility] Office Building [address] [place] [phone] Tiara Hartman MD 08/25/2024 Telephone [facility] Cardiology [address] [facility] 8th [place] [address] [place] [address] Taiwo Marshall MD Surgical Clearance (Colonoscopy) 08/24/2024 Orders Only [facility] Health Information Management [address] [place] [address] Scanning, Provider 08/10/2024 11:15 AM CDT Office Visit [facility] Cardiology [address] [place] [address] Taiwo Marshall MD NSVT (nonsustained ventricular tachycardia) ([facility]) 07/21/2024 Orders Only [facility] Cardiology [address] [place] [address] Office [address] [place] [phone] Tiara Hartman MD 07/04/2024 Orders Only [facility] [address] [place] [address] Office [address] [place] [phone] Tiara Hartman MD from Last 3 Months [...] nostril 3 (three) times a day Active Active Problems Problem Noted Date Diagnosed Date Transient ischemic attack (TIA) 10/28/2023 Sinus bradycardia 10/27/2023 NSVT (nonsustained ventricular tachycardia) 040 05/2023 PVC (premature ventricular contraction) 07/28/19 Coronary artery disease of n ative artery of [place] heart with stable angina pectoris 07/19/2023 Presence of electronic cardiac device 06/19/2023 Abnormal stress test 06/08/2023 Chest pain 06/08/2023 Status post placement of implantable loop record er 01/05/2023 Overview (01/05/2023): Medtronic LNQ22 Loop Recorder. Dx; TIA, monitor for Afib. DOI 01/20/2023-[place]. Non-sustained ventricular tachycardia 01/02/2023 TIA [...] 11:08 AM CDT Height 154.9 cm (5' 0.98) 08/10/2024 11:08 AM C DT Body Mass Index 44.43 08/10/2024 11:08 AM CDT Plan of Treatment Not on file Medical Devices Implanted Type Area Truck Engine Assembler Device Identifier Shelf Expiration Date Model / Serial / Lot Enecsys Monitor Lux-Dx Ii Insertable Area Field Person [id number] - [id number] - [id number] Implanted:Qty: 1 on 10/28/2023 by Tiara Hartman MD at [facility] Implantable Loop Recorder Enecsys 03/08/2025 [id number] / [id number] / [id number] Procedures Procedure Name Priority Date/Time Associated Diagnosis Comments DEVICE CHECK - REMOTE Routine 09/22/2024 7:53 PM CDT DEVICE CHECK - REMOTE 08/22/2024 8:57 PM CDT DEVICE CHECK - REMOTE Routine 07/21/2024 11:00 AM CDT DEVICE CHECK - REMOTE Routine 07/04/2024 6:01 PM CDT from Last 3 Months Results * DEVICE CHECK - REMOTE (09/22/2024 7:53 PM CDT) Anatomical Region Laterality Modality Other 09/22/2024 7:53 PM CDT Narrative 09/23/2024 9:06 AM CDT Interpretation Summary: Battery and Leads (BL) Normal battery parameters Presenting Rhythm (IA) Normal Sinus Rhythm Arrhythmic events (AE) No new arrhythmic events in monitoring period Transmission Information (TI) Implant indication: Cryptogenic Stroke Device Summary Report Procedure Note Tiara Hartman MD - 09/23/2024 Interpretation Summary: Battery and Leads (BL) Normal battery parameters Presenting Rhythm (IA) Normal Sinus Rhythm Arrhythmic events (AE) No new arrhythmic events in monitoring period Transmission Information (TI) Implant indication: Cryptogenic Stroke Device Summary Report Tiara Hartman MD [facility] PROCEDURES Final Result * DEVICE CHECK - REMOTE (08/22/2024 8:57 PM CDT) Anatomical Region Laterality Modality Other 08/22/2024 8:57 PM CDT Narrative 08/24/2024 11:13 AM CDT Interpretation Summary: Battery and Leads (BL) Normal battery parameters Presenting Rhythm (IA) Normal Sinus Rhythm Arrhythmic events (AE) No new arrhythmic events in monitoring period Transmission Information (TI) Device Summary Report Procedure Note Tiara Hartman MD - 08/24/2024 Interpretation Summary: Battery and Leads (BL) Normal battery parameters Presenting Rhythm (IA) Normal Sinus Rhythm Arrhythmic events (AE) No new arrhythmic events in monitoring period Transmission Information (TI) Device Summary Report Provider Scanning CV CARDIAC SERVICES PROCEDURES Final Result * DEVICE CHECK - REMOTE (07/21/2024 11:00 AM CDT) Anatomical Region Laterality Modality Other 07/21/2024 11:0 0 AM CDT Narrative 08/08/2024 10:46 AM CDT Interpretation Summary: Battery and Leads (BL) Normal battery parameters Presenting Rhythm (IA) Normal Sinus Rhythm Arrhythmic events (AE) No new arrhythmic events in monitoring period Transmission Information (TI) Device Summary Report Implant indication: Cryptogenic Stroke Procedure Note Tiara Hartman MD - 08/08/2024 Interpretation Summary: Battery and Leads (BL) Normal battery parameters Presenting Rhythm (IA) Normal Sinus Rhythm Arrhythmic events (AE) No [...] Leads (BL) Normal battery parameters Presenting Rhythm (IA) Sinus Bradycardia Arrhythmic events (AE) No new arrhythmic events in monitoring period Transmission Information (TI) Implant indication: Cryptogenic Stroke Device Summary Report Procedure Note Tiara Hartman MD - 07/07/2024 Interpretation Summary: Battery and Leads (BL) Normal battery parameters Presenting Rhythm (IA) Sinus Bradycardia Arrhythmic events (AE) No new arrhythmic events in monitoring period Transmission Information (TI) Implant indication: Cryptogenic Stroke Device Summary Report Tiara Hartman MD [facility] C[facility] SERVICES PROCEDURES Final Result from Last 3 Months [id number] [place] [address] [id number] [place] [address] [id number] [facility] Advance Directives For more information, please contact: [phone] * Full Code (Latest Code Status on File) Date Activated Date Inactivated Comments 07/01/2023 10:33 AM 07/01/2023 4:53 PM * Full Code Date Activated Date Inactivated Comments 06/19/2023 8:03 AM 06/20/2023 4:38 AM Care Teams Participant Administrator Relationship Specialty Start Date End Date Catracho Marshall MD [address] [place] [address] PCP - General Internal Medicine 12/05/22
--- OUTSIDE RECORDS SUMMARY | 2024-09-28 15:50 | XMS_ITS | Encounter Summary ---
Author Organization [facility] Address [address] [place] [address] Phone Care Team Providers Care Store Operations Manager Name Role Phone Catracho Marshall MD Primary Care Provider + [phone] Encounter Details Date Type Department Care Team (Latest Contact Info) Description 04/03/2023 Orders Only [facility] Crystal Barfield RN [address] [facility] [address] [place], [place] [phone] Social History Tobacco Use Types Packs/Day Years [...] on filedocumented in this encounter Care Teams Store Operations Manager Relationship Specialty Start Date End Date Catracho Marshall MD [address] [place] [id number] PCP - General Internal Medicine 12/05/22 documented as of this encounter
--- OUTSIDE RECORDS SUMMARY | 2024-09-28 15:50 | XMS_ITS | Encounter Summary ---
Author Organization [facility] Address [address] [place] [address] Phone Care Team Providers Care End Lathe Operator Name Role Phone Catracho Marshall MD Primary Care Provider + [phone] Encounter Details Date Type Department Care Team (Latest Contact Info) Description 11/25/2022 Orders Only [facility] Crystal Barfield RN [address] [facility] [address] [place], [place] [phone] Social History Tobacco Use Types Packs/Day Years [...] on filedocumented in this encounter Care Teams End Lathe Operator Relationship Specialty Start Date End Date Catracho Marshall MD [address] [place] [address] PCP - General Internal Medicine 12/05/22 documented as of this encounter
--- OUTSIDE RECORDS SUMMARY | 2024-09-28 15:50 | XMS_ITS | Encounter Summary ---
Author Organization [facility] Address [address] [place] [address] Phone Care Team Providers Care Research Hydraulic Engineer Name Role Phone Catracho Marshall MD Primary Care Provider + [phone] Encounter Details Date Type Department Care Team (Latest Contact Info) Description 12/14/2023 Orders Only [facility] Crystal Barfield, JUDY [address] [facility] [address] [place], [place] [phone] Social History Tobacco Use Types Packs/Day Years [...] on filedocumented in this encounter Care Teams Research Hydraulic Engineer Relationship Specialty Start Date End Date Catracho Mrashall MD [address] [place], [place] [id number] PCP - General Internal Medicine 12/05/22 documented as of this encounter
--- OUTSIDE RECORDS SUMMARY | 2024-09-28 15:50 | XMS_ITS | Clinical Summary ---
Author Organization [facility] [address] Address [address] [place] [address] Care Team Providers Care Goods Layer Name Role Phone Catracho Marshall MD Primary Care Provider + [phone] Allergies Active Allergy Reactions Criticality Noted Date [...] artery disease of n ative artery of [place] heart with stable angina pectoris 07/19/2023 Presence of electronic cardiac device 06/19/2023 Abnormal stress test 06/08/2023 Chest pain 06/08/2023 Status post placement of implantable loop record er 01/05/2023 Overview (01/05/2023): Medtronic LNQ22 Loop Recorder. Dx; TIA, monitor for Afib. DOI 01/20/2023-Lisette. [employer] remote monitoring. Non-sustained ventricular tachycardia 01/02/2023 TIA (transient ischemic attack) 01/02/2023 Essential hypertension 01/02/2023 Dyslipidemia 01/02/2023 Encounters Date Type Department Care Team Description 09/22/2024 Orders Only [facility] Cardiology [address] [place] [address] 3 [address] [place] [address] Tiara Hartman MD 08/25/2024 Telephone [facility] Cardiology [address] [facility] 8th [place] [address] [place] [address] Taiwo Marshall MD Surgical Clearance (Colonoscopy) 08/24/2024 Orders Only [facility] Health Information Management [address] [place] [address] Scanning, Provider 08/10/2024 11:15 AM CDT Office Visit [facility] Cardiology [address] [place] [address] Taiwo Marshall MD NSVT (nonsustained ventricular tachycardia) ([facility]) 07/21/2024 Orders Only [address] [place] [address] Tiara Hartman MD 07/04/2024 Orders Only [address] [place] [address] Tiara Hartman MD from Last 3 Months [...] 06/27/2027 06/26/2017 Medical Devices Implanted Type Area Sap Data Architect Device Identifier Shelf Expiration Date Model / Serial / Lot Exerscrip Monitor Lux-Dx Ii Insertable Hand Tier [id number] - [id number] - [id number] Implanted:Qty: 1 on 10/28/2023 by Tiara Hartman MD at [facility] Implantable Loop Recorder Technology Keire[employer]u Nikita 03/08/2025 M312 / [id number] Procedures Procedure Name Priority Date/Time Associated Diagnosis [...] Leads (BL) Normal battery parameters Presenting Rhythm (TN) Normal Sinus Rhythm Arrhythmic events (AE) No new arrhythmic events in monitoring period Transmission Information (TI) Implant indication: Cryptogenic Stroke Device Summary Report Procedure Note Tiara Hartman MD - 09/23/2024 Interpretation Summary: Battery and Leads (BL) Normal battery parameters Presenting Rhythm (TN) Normal Sinus Rhythm Arrhythmic events (AE) No [...] Leads (BL) Normal battery parameters Presenting Rhythm (TN) Normal Sinus Rhythm Arrhythmic events (AE) No new arrhythmic events in monitoring period Transmission Information (TI) Device Summary Report Procedure Note Tiara Hartman MD - 08/24/2024 Interpretation Summary: Battery and Leads (BL) Normal battery parameters Presenting Rhythm (TN) Normal Sinus Rhythm Arrhythmic events (AE) No new arrhythmic events in monitoring period Transmission Information (TI) Device Summary Report Provider Scanning CV CARDIAC SERVICES PROCEDURES Final Result * DEVICE CHECK - REMOTE (07/21/2024 11:00 AM CDT) Anatomical Region Laterality Modality Other 07/21/2024 11:0 0 AM CDT Narrative 08/08/2024 10:46 AM CDT Interpretation Summary: Battery and Leads (BL) Normal battery parameters Presenting Rhythm (TN) Normal Sinus Rhythm Arrhythmic events (AE) No new arrhythmic events in monitoring period Transmission Information (TI) Device Summary Report Implant indication: Cryptogenic Stroke Procedure Note Tiara Hartman MD - 08/08/2024 Interpretation Summary: Battery and Leads (BL) Normal battery parameters Presenting Rhythm (TN) Normal Sinus Rhythm Arrhythmic events (AE) No [...] Leads (BL) Normal battery parameters Presenting Rhythm (TN) Sinus Bradycardia Arrhythmic events (AE) No new arrhythmic events in monitoring period Transmission Information (TI) Implant indication: Cryptogenic Stroke Device Summary Report Procedure Note Tiara Hartman MD - 07/07/2024 Interpretation Summary: Battery and Leads (BL) Normal battery parameters Presenting Rhythm (TN) Sinus Bradycardia Arrhythmic events (AE) No new arrhythmic events in monitoring period Transmission Information (TI) Implant indication: Cryptogenic Stroke Device Summary Report Tiara Hartman MD CV CARDIAC SERVICES PROCEDURES Final Result from Last 3 Months Insurance [facility] Advance Directives For more information, please contact: [phone] * Full Code (Latest Code Status on File) Date Activated Date Inactivated Comments 07/01/2023 10:33 AM 07/01/2023 4:53 PM * Full Code Date Activated Date Inactivated Comments 06/19/2023 8:03 AM 06/20/2023 4:38 AM Care Teams Goods Layer Relationship Specialty Start Date End Date Catracho Marshall MD [address] [place] [address] PCP - General Internal Medicine 12/05/22
--- OUTSIDE RECORDS SUMMARY | 2024-09-28 15:50 | XMS_ITS | Encounter Summary ---
Author Organization [facility] Address [address] [place] [address] Phone Care Team Providers Care Brake Repair Supervisor Name Role Phone Catracho Marshall MD Primary Care Provider + [phone] Encounter Details Date Type Department Care Team (Latest Contact Info) Description 01/06/2024 Orders Only [facility] Crystal Barfield, JUDY [address] [facility] [address] [place], [place] [id number] Social History Tobacco Use Types Packs/Day Years [...] on filedocumented in this encounter Care Teams Brake Repair Supervisor Relationship Specialty Start Date End Date Catracho Marshall MD [address] [place], [place] [id number] PCP - General Internal Medicine 12/05/22 documented as of this encounter
--- OUTSIDE RECORDS SUMMARY | 2024-09-28 15:50 | XMS_ITS | Encounter Summary ---
Author Organization [facility] Address [address] [place] [address] Phone Care Team Providers Care Operations Research Group Manager Name Role Phone Catracho Marshall MD Primary Care Provider + [phone] Encounter Details Date Type Department Care Team (Latest Contact Info) Description 09/08/2005 Orders Only [facility] Crystal Barfield RN [address] [facility] [address] [place], [place] [id number] Social History Tobacco Use Types Packs/Day Years [...] on filedocumented in this encounter Care Teams Operations Research Group Manager Relationship Specialty Start Date End Date Catracho Marshall MD [address] [place] [address] PCP - General Internal Medicine 12/05/22 documented as of this encounter
--- OUTSIDE RECORDS SUMMARY | 2024-09-28 15:50 | XMS_ITS | Encounter Summary ---
Author Organization [facility] Address [address] [place] [address] Phone Care Team Providers Care Limerock Tower Loader Name Role Phone Catracho Marshall MD Primary Care Provider [phone] Encounter Details Date Type Department Care Team [...] on filedocumented in this encounter Care Teams Limerock Tower Loader Relationship Specialty Start Date End Date Catracho Marshall MD [address] [place] [address] PCP - General Internal Medicine 12/05/22 documented as of this encounter
--- OUTSIDE RECORDS SUMMARY | 2024-09-28 15:50 | XMS_ITS | Encounter Summary ---
Author Organization [facility] Address [address] [place] [address] Phone Care Team Providers Care Folding Machine Operator Name Role Phone Catracho Marshall MD Primary Care Provider + [phone] Encounter Details Date Type Department Care Team (Latest Contact Info) Description 02/23/2023 Orders Only [facility] Crystal Barfield, JUDY [address] [facility] [address] [place], [place] [phone] Social History Tobacco Use Types Packs/Day Years [...] on filedocumented in this encounter Care Teams Folding Machine Operator Relationship Specialty Start Date End Date Catracho Marshall MD [address] [place] [address] PCP - General Internal Medicine 12/05/22 documented as of this encounter
== END 2024-09-28 15:47 | disposition home or self-care (01) ==
PROVIDERS: PCP Internal Medicine; Visit Provider Internal Medicine
DX: M25.561 Pain in right knee (principal); M17.11 Unilateral primary osteoarthritis, right knee
CPT/HCPCS: 73562

== ENCOUNTER 2024-09-29 14:03 | Outpatient (CLI) | payer OTHER, SELFPAY ==
--- NOTE | ~2024-09-29 | MM_ITS ---
EXAMINATION: MM screening [facility] BI w gabriella HISTORY: Screening TECHNIQUE: Craniocaudal and mediolateral oblique 3-D tomosynthesis images were obtained and synthetic 2-D images were generated. CAD analysis was submitted and interpreted. COMPARISON: 07/29/2023 through 02/02/2019 BREAST PARENCHYMAL COMPOSITION: There are scattered areas of fibroglandular density. FINDINGS: There is no evidence of suspicious mass, calcification, or architectural distortion to sug gest malignancy in either breast. There has been no suspicious interval change. IMPRESSION: 1. No mammographic evidence of malignancy. 2. Recommend routine screening mammography in one year. BI-RADS Category 1: Negative Reviewed, dictated and finalized at location B.
--- OUTSIDE RECORDS SUMMARY | 2024-09-29 14:47 | XMS_ITS | Referral Summary ---
Author Organization [facility] [address] Address [address] [place] [address] Care Team Providers Care Endless Track Vehicle Supervisor Name Role Phone Catracho Marshall MD Primary Care Provider [phone] Encounters Date Type Department Care Team Description 09/22/2024 Orders Only [facility] Cardiology [facility] Office Building [address] [place] [address] Tiara Hartman MD 08/25/2024 Telephone [facility] Cardiology [address] [facility] 8th [place] [address] [place] [address] Taiwo Marshall MD Surgical Clearance (Colonoscopy) 08/24/[address] [facility] Health Information Management [address] [place] [address] Scanning, Provider 08/10/2024 11:15 AM CDT Office Visit [facility] Cardiology [address] [place] [address] Taiwo Marshall MD NSVT (nonsustained ventricular tachycardia) ([facility]) 07/21/2024 Orders Only [facility] Cardiology [address] [place] [address] Office Building [address] [place] [phone] Tiara Hartman MD 07/04/2024 Orders Only [facility] Cardiology [address] [place] [address] Office Building [address] [place] [address] Tiara Hartman MD from Last 3 Months [...] artery disease of n ative artery of [place] heart with stable angina pectoris 07/19/2023 Presence of electronic cardiac device 06/19/2023 Abnormal stress test 06/08/2023 Chest pain 06/08/2023 Status post placement of implantable loop record er 01/05/2023 Overview (01/05/2023): Medtronic LNQ22 Loop Recorder. Dx; TIA, monitor for Afib. DOI 01/20/2023-Lisette. [facility] remote monitoring. Non-sustained ventricular tachycardia 01/02/2023 TIA [...] on file Medical Devices Implanted Type Area Superintendent Custodian Janitor Device Identifier Shelf Expiration Date Model / Serial / Lot Acuity[employer] Monitor Lux-Dx Ii Insertable Appointment Setter M312 - [id number] - [id number] Implanted:Qty: 1 on 10/28/2023 by Tiara Hartman MD at [facility] Implantable Loop Recorder [employer] 03/08/2025 M312 / [id number] / [id number] Procedures Procedure Name Priority Date/Time Associated Diagnosis [...] Leads (BL) Normal battery parameters Presenting Rhythm ([place]) Normal Sinus Rhythm Arrhythmic events (AE) No new arrhythmic events in monitoring period Transmission Information (TI) Implant indication: Cryptogenic Stroke Device Summary Report Procedure Note Tiara Hartman MD - 09/23/2024 Interpretation Summary: Battery and Leads (BL) Normal battery parameters Presenting Rhythm (MN) Normal Sinus Rhythm Arrhythmic events (AE) No [...] Leads (BL) Normal battery parameters Presenting Rhythm (MN) Normal Sinus Rhythm Arrhythmic events (AE) No new arrhythmic events in monitoring period Transmission Information (TI) Device Summary Report Procedure Note Tiara Hartman MD - 08/24/2024 Interpretation Summary: Battery and Leads (BL) Normal battery parameters Presenting Rhythm (MN) Normal Sinus Rhythm Arrhythmic events (AE) No new arrhythmic events in monitoring period Transmission Information (TI) Device Summary Report Provider Scanning CV CARDIAC SERVICES PROCEDURES Final Result * DEVICE CHECK - REMOTE (07/21/2024 11:00 AM CDT) Anatomical Region Laterality Modality Other 07/21/2024 11:0 0 AM CDT Narrative 08/08/2024 10:46 AM CDT Interpretation Summary: Battery and Leads (BL) Normal battery parameters Presenting Rhythm (MN) Normal Sinus Rhythm Arrhythmic events (AE) No new arrhythmic events in monitoring period Transmission Information (TI) Device Summary Report Implant indication: Cryptogenic Stroke Procedure Note Tiara Hartman MD - 08/08/2024 Interpretation Summary: Battery and Leads (BL) Normal battery parameters Presenting Rhythm (MN) Normal Sinus Rhythm Arrhythmic events (AE) No [...] Leads (BL) Normal battery parameters Presenting Rhythm (MN) Sinus Bradycardia Arrhythmic events (AE) No new arrhythmic events in monitoring period Transmission Information (TI) Implant indication: Cryptogenic Stroke Device Summary Report Procedure Note Tiara Hartman MD - 07/07/2024 Interpretation Summary: Battery and Leads (BL) Normal battery parameters Presenting Rhythm (MN) Sinus Bradycardia Arrhythmic events (AE) No new arrhythmic events in monitoring period Transmission Information (TI) Implant indication: Cryptogenic Stroke Device Summary Report Tiara Hartman MD CV CARDIAC SERVICES PROCEDURES Final Result from Last 3 Months Insurance [id number] [place] [address] [id number] [place] [id number] [facility] Advance Directives For more information, please contact: [phone] * Full Code (Latest Code Status on File) Date Activated Date Inactivated Comments 07/01/2023 10:33 AM 07/01/2023 4:53 PM * Full Code Date Activated Date Inactivated Comments 06/19/2023 8:03 AM 06/20/2023 4:38 AM Care Teams Endless Track Vehicle Supervisor Relationship Specialty Start Date End Date Catracho Marshall MD [address] [place] [address] PCP - General Internal Medicine 12/05/22
--- OUTSIDE RECORDS SUMMARY | 2024-09-29 14:47 | XMS_ITS | Encounter Summary ---
Author Organization [facility] Address [address] [place] [address] Phone Care Team Providers Care Concrete Pipe Maker Name Role Phone Catracho Marshall MD Primary Care Provider + [phone] Encounter Details Date Type Department Care Team (Latest Contact Info) Description 10/03/2022 Orders Only [facility] Crystal Barfield RN [address] [facility] [address] [place], [place] [phone] Social History Tobacco Use Types Packs/Day Years [...] on filedocumented in this encounter Care Teams Concrete Pipe Maker Relationship Specialty Start Date End Date Catracho Marshall MD [address] [place] [address] PCP - General Internal Medicine 12/05/22 documented as of this encounter
--- OUTSIDE RECORDS SUMMARY | 2024-09-29 14:47 | XMS_ITS | Encounter Summary ---
Author Organization [facility] Address [address] [place] [address] Phone Care Team Providers Care Environmental Monitoring Specialist Name Role Phone Catracho Marshall MD Primary Care Provider [phone] Encounter Details Date Type Department Care Team [...] on filedocumented in this encounter Care Teams Environmental Monitoring Specialist Relationship Specialty Start Date End Date Catracho Marshall MD [address] [place] [address] PCP - General Internal Medicine 12/05/22 documented as of this encounter
--- OUTSIDE RECORDS SUMMARY | 2024-09-29 14:47 | XMS_ITS | Clinical Summary ---
Author Organization [facility] [address] Address [address] [place] [address] Care Team Providers Care Road Cleaner Name Role Phone Catracho Marshall MD Primary Care Provider + [phone] Allergies Active Allergy Reactions Criticality Noted Date [...] artery disease of n ative artery of [place] heart with stable angina pectoris 07/19/2023 Presence of electronic cardiac device 06/19/2023 Abnormal stress test 06/08/2023 Chest pain 06/08/2023 Status post placement of implantable loop record er 01/05/2023 Overview (01/05/2023): Medtronic LNQ22 Loop Recorder. Dx; TIA, monitor for Afib. DOI 01/20/2023-Lisette. [employer] remote monitoring. Non-sustained ventricular tachycardia 01/02/2023 TIA (transient ischemic attack) 01/02/2023 Essential hypertension 01/02/2023 Dyslipidemia 01/02/2023 Encounters Date Type Department Care Team Description 09/22/2024 Orders Only [facility] Cardiology [address] [place] [address] [address] [place] [address] Tiara Hartman MD 08/25/2024 Telephone [facility] Cardiology [address] [facility] 8th [place] [address] [place] [address] Taiwo Marshall MD Surgical Clearance (Colonoscopy) 08/24/2024 Orders Only [facility] Health Information Management [address] [place] [address] Scanning, Provider 08/10/2024 11:15 AM CDT Office Visit [facility] Cardiology [address] [place] [address] Taiwo Marshall MD NSVT (nonsustained ventricular tachycardia) ([facility]) 07/21/2024 Orders Only [address] [place] [address] Tiara Hartman MD 07/04/2024 Orders Only [address] [place] [address] Tiara Hartman MD from Last 3 Months [...] 06/27/2027 06/26/2017 Medical Devices Implanted Type Area Cutting And Boning Supervisor Device Identifier Shelf Expiration Date Model / Serial / Lot [employer] Monitor Lux-Dx Ii Insertable Client Support Administrator [id number] - [id number] - [id number] Implanted:Qty: 1 on 10/28/2023 by Tiara Hartman MD at [facility] Implantable Loop Recorder Interacting Technology Nikita 03/08/2025 M312 / [id number] / [id number] Procedures Procedure Name Priority Date/Time Associated Diagnosis [...] Leads (BL) Normal battery parameters Presenting Rhythm ([place]) Normal Sinus Rhythm Arrhythmic events (AE) No new arrhythmic events in monitoring period Transmission Information (TI) Implant indication: Cryptogenic Stroke Device Summary Report Procedure Note Tiara Hartman MD - 09/23/2024 Interpretation Summary: Battery and Leads (BL) Normal battery parameters Presenting Rhythm ([place]) Normal Sinus Rhythm Arrhythmic events (AE) No [...] Leads (BL) Normal battery parameters Presenting Rhythm ([place]) Normal Sinus Rhythm Arrhythmic events (AE) No new arrhythmic events in monitoring period Transmission Information (TI) Device Summary Report Procedure Note Tiara Hartman MD - 08/24/2024 Interpretation Summary: Battery and Leads (BL) Normal battery parameters Presenting Rhythm ([place]) Normal Sinus Rhythm Arrhythmic events (AE) No new arrhythmic events in monitoring period Transmission Information (TI) Device Summary Report Provider Scanning CV CARDIAC SERVICES PROCEDURES Final Result * DEVICE CHECK - REMOTE (07/21/2024 11:00 AM CDT) Anatomical Region Laterality Modality Other 07/21/2024 11:0 0 AM CDT Narrative 08/08/2024 10:46 AM CDT Interpretation Summary: Battery and Leads (BL) Normal battery parameters Presenting Rhythm ([place]) Normal Sinus Rhythm Arrhythmic events (AE) No new arrhythmic events in monitoring period Transmission Information (TI) Device Summary Report Implant indication: Cryptogenic Stroke Procedure Note Tiara Hartman MD - 08/08/2024 Interpretation Summary: Battery and Leads (BL) Normal battery parameters Presenting Rhythm ([place]) Normal Sinus Rhythm Arrhythmic events (AE) No [...] Leads (BL) Normal battery parameters Presenting Rhythm ([place]) Sinus Bradycardia Arrhythmic events (AE) No new arrhythmic events in monitoring period Transmission Information (TI) Implant indication: Cryptogenic Stroke Device Summary Report Procedure Note Tiara Hartman MD - 07/07/2024 Interpretation Summary: Battery and Leads (BL) Normal battery parameters Presenting Rhythm ([place]) Sinus Bradycardia Arrhythmic events (AE) No new arrhythmic events in monitoring period Transmission Information (TI) Implant indication: Cryptogenic Stroke Device Summary Report Tiara Hartman MD CV CARDIAC SERVICES PROCEDURES Final Result from Last 3 Months Insurance [facility] Advance Directives For more information, please contact: [phone] * Full Code (Latest Code Status on File) Date Activated Date Inactivated Comments 07/01/2023 10:33 AM 07/01/2023 4:53 PM * Full Code Date Activated Date Inactivated Comments 06/19/2023 8:03 AM 06/20/2023 4:[address] Cleaner Relationship Specialty Start Date End Date Catracho Marshall MD [address] [place] [address] PCP - General Internal Medicine 12/05/22
--- OUTSIDE RECORDS SUMMARY | 2024-09-29 14:47 | XMS_ITS | Encounter Summary ---
Author Organization [facility] Address [address] [place] [address] Phone Care Team Providers Care Mold Maker Apprentice Name Role Phone Catracho Marshall MD Primary Care Provider + [phone] Encounter Details Date Type Department Care Team (Latest Contact Info) Description 12/14/2023 Orders Only [facility] Crystal Barfield, JUDY [address] [facility] [address] [place], [place] [phone] Social History Tobacco Use Types Packs/Day Years [...] on filedocumented in this encounter Care Teams Mold Maker Apprentice Relationship Specialty Start Date End Date Catracho Marshall MD [address] [place], [place] [id number] PCP - General Internal Medicine 12/05/22 documented as of this encounter
--- OUTSIDE RECORDS SUMMARY | 2024-09-29 14:47 | XMS_ITS | Encounter Summary ---
Author Organization [facility] Address [address] [place] [address] Phone Care Team Providers Care Aircraft Engine Mechanic Overhaul Name Role Phone Catracho Marshall MD Primary Care Provider + [phone] Encounter Details Date Type Department Care Team (Latest Contact Info) Description 01/06/2024 Orders Only [facility] Crystal Barfield, JUDY [address] [facility] [address] [place], [place] [phone] Social History Tobacco Use Types Packs/Day Years [...] on filedocumented in this encounter Care Teams Aircraft Engine Mechanic Overhaul Relationship Specialty Start Date End Date Catracho Marshall MD [address] [place], [place] [id number] PCP - General Internal Medicine 12/05/22 documented as of this encounter
--- OUTSIDE RECORDS SUMMARY | 2024-09-29 14:47 | XMS_ITS | Encounter Summary ---
Author Organization [facility] Address [address] [place] [address] Phone Care Team Providers Care Station Jailer Name Role Phone Catracho Marshall MD Primary Care Provider + [phone] Encounter Details Date Type Department Care Team (Latest Contact Info) Description 11/25/2022 Orders Only [facility] Crystal Barfield RN [address] [facility] [address] [place], [place] [phone] Social History Tobacco Use Types Packs/Day Years [...] on filedocumented in this encounter Care Teams Station Jailer Relationship Specialty Start Date End Date Catracho Marshall MD [address] [place] [address] PCP - General Internal Medicine 12/05/22 documented as of this encounter
--- OUTSIDE RECORDS SUMMARY | 2024-09-29 14:48 | XMS_ITS | Encounter Summary ---
Author Organization [facility] Address [address] [place] [address] Phone Care Team Providers Care Instructor Correspondence School Name Role Phone Catracho Marshall MD Primary Care Provider + [phone] Encounter Details Date Type Department Care Team (Latest Contact Info) Description 09/08/2005 Orders Only [facility] Crystal Barfield RN [address] [facility] [address] [place], [place] [id number] Social History Tobacco Use Types Packs/Day Years [...] on filedocumented in this encounter Care Teams Instructor Correspondence School Relationship Specialty Start Date End Date Catracho Marshall MD [address] [place] [address] PCP - General Internal Medicine 12/05/22 documented as of this encounter
--- OUTSIDE RECORDS SUMMARY | 2024-09-29 14:48 | XMS_ITS | Continuity of Care Document ---
Author Name [facility] Organization [facility] Care Team Providers Care Environmental Test Technician Name Role Phone [facility] Unavailable Unavailable Medications Combined list of [...] with your doctor before becoming . 07/29/2024 [id number] 4 [address] [place] [address] Dom [facility]) apixaban 5 mg tablet 5 mg, Oral, [...] or use exactly as directed . 09/21/2024 [id number] 4 [address] [place] [address] Dom [facility]) carvedilol (U/D) 25 MG ORAL TAB May cause drowsine ss.Be careful if taking OTCs.John e with food/mil k.Take or use exactly as directed . 06/28/2024 [id number] 4 [address] [place] [address] Dom [facility]) carvedilol 12.5 mg tablet See Instruct ions, [...] as directed .Obtain advice for OTCs. 07/29/2024 [id number] 4 2023 90 [facility] Dom [facility] ([facility]) citalopram 40 mg tablet = 1 tab(s), [...] directed .Do not take if . 07/14/2024 [id number] 4 2023 90 [facility] Dom [facility] ([facility]) dapaglifloz in 10 mg tablet = 1 [...] before becoming .Store in original package. 09/07/2024 [id number] 4 [address] [place] [address] Dom [facility] ([facility]) Dulaglutide 3 mg/mL, Injection, 0.5mL Autoinjecto r refriger ateCheck with your doctor before becoming .Store in original package. Active 10/04/2024 [id number] 4 [address] [place] [address] Dom [facility] ([facility]) Eliquis 5 mg tablet [...] 2023 48.0 Ambulat ory Pharmac y Freestyle Newcomb Lite Monitor See Instruct ions, # 1 [...] or use exactly as directed . 09/02/2024 [id number] 4 2023 90 [facility] Dom [facility] ([facility]) indapamide 2.5 mg tablet [...] or use exactly as directed . 07/14/2024 [id number] 4 2023 180 [facility] Dom [facility] ([facility] isosorbide dinitrate 20 mg [...] as directed .Obtain advice for OTCs. 07/29/2024 [id number] 4 2023 180 [facility] Dom LE[facility] ([facility] nortriptyli ne 25 mg [...] grapefru it and grapefru it juice. 07/27/2024 [id number] 4 2023 180 [facility] Dom [facility] ([facility] ranolazine ER 500 mg/12 [...] prohibit s transfer of prescrip tion. 01/26/2024 [id number] 4 2023 90 [facility] Dom [facility] ([facility]) Immunizations Combined list of available immunizations from the Department of Defense and Veterans Affairs facilities. Immunization Series Date Given Administered By Site Reaction Lot Number CVX Code Drug Flat Bed Operator Status Comments Source Influenza, injectable, MDCK, [...] Plan No data available for this section 09/29/2024 Ambulatory Pharmacy Functional Status Combined list of recent functional and cognitive assessments recorded at Department of Defense and Veterans Affairs (VA).VA Functional Marinette Measurement (FIM) Scale: 1 = Total Assistance (Subject = 0% +), 2 = Maximal Assistance (Subject = 25% +), 3 = Moderate Assistance (Subject = 50% +), 4 = Minimal Assistance (Subject = 75% +), 5 = Supervision, 6 = Modified Marinette (Device), 7 = Complete Marinette (Timely, Safely). Assessment Date/Time Source Assessment Type Assessment Skill Assessment Score Assessment Details No data available for this section
--- OUTSIDE RECORDS SUMMARY | 2024-09-29 14:48 | XMS_ITS | Encounter Summary ---
Author Organization [facility] Address [address] [place] [address] Phone Care Team Providers Care Pot Tender Name Role Phone Catracho Marshall MD Primary Care Provider + [phone] Encounter Details Date Type Department Care Team (Latest Contact Info) Description 04/03/2023 Orders Only [facility] Crystal Barfield RN [address] [facility] [address] [place], [place] [id number] Social History Tobacco Use Types Packs/Day Years [...] on filedocumented in this encounter Care Teams Pot Tender Relationship Specialty Start Date End Date Catracho Marshall MD [address] [id number] PCP - General Internal Medicine 12/05/22 documented as of this encounter
--- OUTSIDE RECORDS SUMMARY | 2024-09-29 14:48 | XMS_ITS | Encounter Summary ---
Author Organization [facility] Address [address] [place] [address] Phone Care Team Providers Care Documentum Consultant Name Role Phone Catracho Marshall MD Primary Care Provider + [phone] Encounter Details Date Type Department Care Team (Latest Contact Info) Description 02/23/2023 Orders Only [facility] Crystal Barfield, JUDY [address] [facility] [address] [place], [place] [id number] Social History Tobacco Use Types Packs/Day Years [...] on filedocumented in this encounter Care Teams Documentum Consultant Relationship Specialty Start Date End Date Catracho Marshall MD [address] [place] [address] PCP - General Internal Medicine 12/05/22 documented as of this encounter
== END 2024-09-29 14:04 | disposition home or self-care (01) ==
LOC: ANHIMG 14:05
PROVIDERS: PCP Internal Medicine; Visit Provider Internal Medicine
DX: Z12.31 Encounter for screening mammogram for malignant neoplasm of breast (principal)
CPT/HCPCS: 77063; 77067

== ENCOUNTER 2024-10-26 14:26 | Outpatient (CLI) | payer OTHER, SELFPAY ==
--- NOTE | ~2024-10-26 | MR_ITS ---
MRI of the right knee Clinical history: Pain Technique: Coronal proton density and proton density-weighted images, sagittal proton-density and T2 fat-sat images, and axial proton-density fat-saturated images were acquired. Findings: Anterior and posterior cruciate ligaments are intact. Medial collateral ligament and the la teral collateral ligament complex are intact. Popliteus tendon is intact. There is complex tearing of the body segment of the medial meniscus, probably extending into the ante rior horn. There is associated para-meniscal cyst at the anterior margin of the medial tibial plateau region measuring approximately 3.6 x 0.9 x 3.0 cm in extent. The cyst has a few septations within it . There is grade IV chondromalacia at the patellar apex extending to the medial facet. There is high-gr natalia chondromalacia at the medial femoral trochlea. There is patchy moderate to high-grade chondromala nora of the medial femoral condyle. Minimal tricompartmental osteophytes are present. Extensor mechanism is intact. There is minimal joint effusion. No March's cyst. No lateral meniscal t ear seen. Impression: Complex tearing of the body segment of the medial meniscus extending to the anterior horn. Associated 3.6 x 0.9 x 3.0 cm para-meniscal cyst along the anterior margin of the medial tibial plateau. Degenerative change, as detailed above. Reviewed, dictated and finalized at location . Impression: Complex tearing of the body segment of the medial meniscus extending to the ant erior horn. Associated 3.6 x 0.9 x 3.0 cm para-meniscal cyst along the anterior margin of the medial tibial plateau. Degenerative change, as detailed above.
--- OUTSIDE RECORDS SUMMARY | 2024-10-26 14:35 | XMS_ITS | Encounter Summary ---
Author Organization [facility] Address [address] [place] [address] Phone Care Team Providers Care Strand Buncher Fine Wire Name Role Phone Catracho Marshall MD Primary Care Provider + [phone] Encounter Details Date Type Department Care Team (Latest Contact Info) Description 02/23/2023 Orders Only [facility] Crystal Barfield, JUDY [address] [facility] [address] [place], [place] [id number] Social History Tobacco Use Types Packs/Day Years [...] on filedocumented in this encounter Care Teams Strand Buncher Fine Wire Relationship Specialty Start Date End Date Catracho Marshall MD [address] [place] [address] PCP - General Internal Medicine 12/05/22 documented as of this encounter
--- OUTSIDE RECORDS SUMMARY | 2024-10-26 14:35 | XMS_ITS | Encounter Summary ---
Author Organization [facility] Address [address] [place] [address] Phone Care Team Providers Care Water Conservationist Name Role Phone Catracho Marshall MD Primary Care Provider + [phone] Encounter Details Date Type Department Care Team (Latest Contact Info) Description 01/06/2024 Orders Only [facility] Crystal Barfield, JUDY [address] [facility] [address] [place], [place] [phone] Social History Tobacco Use Types Packs/Day Years [...] on filedocumented in this encounter Care Teams Water Conservationist Relationship Specialty Start Date End Date Catracho Marshall MD [address] [place], [place] [id number] PCP - General Internal Medicine 12/05/22 documented as of this encounter
--- OUTSIDE RECORDS SUMMARY | 2024-10-26 14:35 | XMS_ITS | Clinical Summary ---
Author Organization [facility] [address] Address [address] [place] [address] Care Team Providers Care Storage Center Manager Name Role Phone Catracho Marshall MD Primary Care Provider + [phone] Allergies Active Allergy Reactions Criticality Noted Date [...] Active Additional Information Patient not taking.Reported on 10/25/2024 dapagliflozin propanediol (FARXIGA) 10 mg tablet Take 1 tablet (10 mg total) by mouth daily 7 tablet 02/08/20 24 Active Additional Information Patient not taking.Reported on 10/25/2024 fenofibrate nanocrystallized (TRICOR) 48 mg tablet Take [...] 180 capsule 3 06/22/19 25 026 Active ipratropium (ATROVENT) 42 mcg (0.06 %) nasal spray Administer 2 sprays into each nostril 3 (three) times a day Active traMADoL (ULTRAM) 50 mg tablet Take by mouth every 6 (six) hours as needed 09/29/19 25 Active Mounjaro 12.5 mg/0.5 mL pen injector injection Inject 0.5 mL (12.5 mg total) under the skin once a week 10/07/19 25 Active tirzepatide (Mounjaro) 7.5 mg/0.5 mL pen injector injection Inject 0.5 mL (7.5 mg total) under the skin every 7 days 025 Discontin ued(Dupli jethro order) Active Problems Problem Noted Date Diagnosed Date Transient ischemic attack (TIA) 10/28/2023 Sinus bradycardia 10/27/2023 NSVT (nonsustained ventricular tachycardia) 05/2023 PVC (premature ventricular contraction) 07/28/19 24 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 Dx; TIA, monitor for Afib. DOI 01/20/2023-[employer] remote monitoring. Non-sustained ventricular tachycardia 01/02/2023 TIA (transient ischemic attack) 01/02/2023 Essential hypertension 01/02/2023 Dyslipidemia 01/02/2023 Encounters Date Type Department Care Team Description 10/25/2024 3:30 PM CDT Office Visit [facility] Cardiology [address] [place] [address] [facility] [place] [address] Tiara Hartman MD NSVT (nonsustained ventricular tachycardia) (HCC) (Primary Dx); Presence of electronic cardiac device 10/25/2024 3:00 PM CDT Ancillary Procedure [facility] [address] [place] [address] [address] [place] [address] Transient ischemic attack (Primary Dx); Presence of electronic cardiac device; NSVT (nonsustained ventricular tachycardia) (HCC) 09/22/2024 Orders Only [facility] Cardiology [address] [facility] Medical Office Building [address] [place] [address] Tiara Hartman MD 08/25/2024 Telephone [facility]iology [address] [place] [address] 8th [place] [address] [place] [address] Taiwo Marshall MD Surgical Clearance (Colonoscopy) 08/24/2024 Orders Only [facility] Health Information Management [address] [place] [address] Scanning, Provider 08/10/2024 11:15 AM CDT Office Visit [facility]iology [address] [facility] [address] [place] [address] Taiwo [place] MD NSVT (nonsustained ventricular tachycardia) (HCC) from Last 3 Months Surgical History Surgery [...] Sign Reading Time Taken Comments Blood Pressure 126/80 10/25/2024 2:59 PM CDT Pulse 69 10/25/2024 2:59 PM CDT Temperature 36.6 C (97.9 F) 10/25/2024 2:59 PM CDT Respiratory Rate 25 10/28/2023 10:45 AM CDT Oxygen Saturation 96% 10/25/2024 2:59 PM CDT Inhaled Oxygen Concentration - - Weight 102 kg (224 lb 12.8 oz) 10/25/2024 2:59 P M CDT Height 154.9 cm (5' 1) 10/25/2024 2:59 PM CDT Body Mass Index 42.48 10/25/2024 2:59 PM CDT Plan of Treatment Health Maintenance [...] PCV21) 02/10/2024 02/09/2019, 10/16/2017, 06/26/2017 Influenza Vaccine (#1) 2024 2, 02/06/2021, 02/09/2019, Additional history exists DTaP/Tdap/Td Vaccine (2 - Td or Tdap) 06/27/2027 06/26/2017 Medical Devices Implanted Type Area Tie Mill Operator Device Identifier Shelf Expiration Date Model / Serial / Lot [employer] Monitor Lux-Dx Ii Insertable Grinder Machine Setter [id number] - [id number] - [id number] Implanted:Qty: 1 on 10/28/2023 by Tiara Hartman MD at [facility] Implantable Loop Recorder [employer] 03/08/2025 [id number] / [id number] / [id number] Procedures Procedure Name Priority Date/Time Associated Diagnosis Comments DEVICE CHECK - REMOTE Routine 09/22/2024 7:53 PM CDT DEVICE CHECK - REMOTE 08/22/2024 8:57 PM CDT from Last 3 Months Results * DEVICE CHECK - REMOTE (09/22/2024 7:53 PM CDT) Anatomical Region Laterality Modality Other 09/22/2024 7:53 PM CDT Narrative 09/23/2024 9:06 AM CDT Interpretation Summary: Battery and Leads (BL) Normal battery parameters Presenting Rhythm (MS) Normal Sinus Rhythm Arrhythmic events (AE) No new arrhythmic events in monitoring period Transmission Information (TI) Implant indication: Cryptogenic Stroke Device Summary Report Procedure Note Tiara Hartman MD - 09/23/2024 Interpretation Summary: Battery and Leads (BL) Normal battery parameters Presenting Rhythm (MS) Normal Sinus Rhythm Arrhythmic events (AE) No [...] Leads (BL) Normal battery parameters Presenting Rhythm (MS) Normal Sinus Rhythm Arrhythmic events (AE) No new arrhythmic events in monitoring period Transmission Information (TI) Device Summary Report Procedure Note Tiara Hartman MD - 08/24/2024 Interpretation Summary: Battery and Leads (BL) Normal battery parameters Presenting Rhythm (MS) Normal Sinus Rhythm Arrhythmic events (AE) No new arrhythmic events in monitoring period Transmission Information (TI) Device Summary Report us Provider Scanning CV CARDIAC SERVICES PROCEDURES Final Result from Last 3 Months [id number] [place] [id number] [place] [address] [facility] Advance Directives For more information, please contact: [phone] * Full Code (Latest Code Status on File) Date Activated Date Inactivated Comments 07/01/2023 10:33 AM 07/01/2023 4:53 PM * Full Code Date Activated Date Inactivated Comments 06/19/2023 8:03 AM 06/20/2023 4:38 AM Care Teams Storage Center Manager Relationship Specialty Start Date End Date Catracho Marshall MD [address] [place] [address] PCP - General Internal Medicine 12/05/22
--- OUTSIDE RECORDS SUMMARY | 2024-10-26 14:35 | XMS_ITS | Continuity of Care Document ---
Author Name [facility] Organization [facility] Care Team Providers Care Meter And Service Line Inspector Name Role Phone [facility] Unavailable Unavailable Medications Combined list of outpatient medications from Department of Defense and Veterans Affairs facilities.Medications provided include 1) outpatient medications from the last 15 months, and 2) patient-reported medications. Medication Details Route Status Patient Instructions Prescription Expires Prescription Number Last Dispense Date Ordering Provider Order Date Order Qty Source APIXABAN 5 MG ORAL TAB Take or use exactly as directed .Obtain advice for OTCs.Graciela ck with your doctor before becoming . 07/29/2024 [id number] 4 [address] [place] [address]) carvedilol (U/D) 25 MG ORAL TAB May cause drowsine ss.Be careful if taking OTCs.John e with food/mil k.Take or use exactly as directed . 09/21/2024 [id number] 4 [address] [place] [address]) CITALOPRAM (U/D) 40 MG ORAL TAB May cause drowsine ss.Take or use exactly as directed .Obtain advice for OTCs. 07/29/2024 [id number] 4 [address] [place] [address] Dom [facility]) Dulaglutide 1.5 mg/mL, Injection, 0.5mL Autoinjecto r refriger ateCheck with your doctor before becoming .Store in original package. 09/07/2024 [id number] 4 [address] [place] [address] Dom [facility]) Dulaglutide 3 mg/mL, Injection, 0.5mL Autoinjecto r refriger ateCheck with your doctor before becoming .Store in original package. 10/04/2024 [id number] 4 [address] [place] [address]) INDAPAMIDE 2.5 MG ORAL TAB Take orange juice or banana.A void exposure to sun.Take or use exactly as directed . 09/02/2024 [id number] 4 [address] [place] [address]) nortriptyli ne (U/D) 25 MG ORAL CAP May cause drowsine ss.Avoid exposure to sun.Take or use exactly as directed .Obtain advice for OTCs. 07/29/2024 [id number] 4 [address] [place] [address]) Ranolazine (Ranexa Eq.) Tablet 500 mg Oral Obtain advice for OTCs.May cause drowsine ss/dizzi ness.May impair driving. Swallow whole.Av oid grapefru it and grapefru it juice. 07/27/2024 [id number] 4 [address] [place] [address]) Zolpidem Tartrate (Ambien Eq.) Tablet 5mg Oral May cause drowsine ss.[facility] law prohibit s transfer of prescrip tion. 01/26/2024 [id number] 4 [address] [place] [address]) Immunizations Combined list of available immunizations from the Department of Defense and Veterans Affairs facilities. Immunization Series Date Given Administered By Site Reaction Lot Number CVX Code Drug Diamond Finishing Supervisor Status Comments Source Influenza, injectable, MDCK, preservative free, quadrivalent 2019 ADRIA FLETCHER () Not Given Influenza , injectabl e, MDCK, preservat jaswinder free, quadrival ent DoD Social History Combined list of available smoking, tobacco, and other social history from Department of Defense and Veterans Affairs facilities. Social History Type Response Date Comment Sourc e This section is an empty social history section. [facility]
--- OUTSIDE RECORDS SUMMARY | 2024-10-26 14:35 | XMS_ITS | Encounter Summary ---
Author Organization [facility] Address [address] [place] [address] Phone Care Team Providers Care Batch Tester Name Role Phone Catracho Marshall MD Primary Care Provider + [phone] Encounter Details Date Type Department Care Team (Latest Contact Info) Description 04/03/2023 Orders Only [facility] Crystal Barfield RN [address] [facility] [address] [place], [place] [id number] Social History Tobacco Use Types Packs/Day Years [...] on filedocumented in this encounter Care Teams Batch Tester Relationship Specialty Start Date End Date Catracho Marshall MD [address] [id number] PCP - General Internal Medicine 12/05/22 documented as of this encounter
--- OUTSIDE RECORDS SUMMARY | 2024-10-26 14:35 | XMS_ITS | Encounter Summary ---
Author Organization [facility] Address [address] [place] [address] Phone Care Team Providers Care Acute Care Surgeon Name Role Phone Catracho Marshall MD Primary Care Provider + [phone] Encounter Details Date Type Department Care Team (Latest Contact Info) Description 12/14/2023 Orders Only [facility] Crystal Barfield, JUDY [address] [facility] [address] [place], [place] [id number] Social History Tobacco Use Types Packs/Day Years [...] on filedocumented in this encounter Care Teams Acute Care Surgeon Relationship Specialty Start Date End Date Catracho Marshall MD [address] [place], [place] [id number] PCP - General Internal Medicine 12/05/22 documented as of this encounter
--- OUTSIDE RECORDS SUMMARY | 2024-10-26 14:35 | XMS_ITS | Encounter Summary ---
Author Organization [facility] Address [address] [place] [address] Phone Care Team Providers Care Blow Moulding Machine Operator Name Role Phone Catracho Marshall MD Primary Care Provider + [phone] Encounter Details Date Type Department Care Team (Latest Contact Info) Description 11/25/2022 Orders Only [facility] Crystal Barfield RN 5[address] [facility] [address] [place], [place] [phone] Social History Tobacco Use Types Packs/Day Years [...] on filedocumented in this encounter Care Teams Blow Moulding Machine Operator Relationship Specialty Start Date End Date Catracho Marshall MD [address] [place] [address] PCP - General Internal Medicine 12/05/22 documented as of this encounter
--- OUTSIDE RECORDS SUMMARY | 2024-10-26 14:35 | XMS_ITS | Clinical Summary ---
Author Organization [facility] Address [address] [place] [address] Care Team Providers Care Tutoring Manager Name Role Phone Unavailable Primary Care Provider [...] 100.7 kg (222 lb) 03/13/2008 11:31 AM FUEL TRUCK DRIVER Height 157.5 cm (5' 2) 03/13/2008 11:31 AM FUEL TRUCK DRIVER Body Mass Index 40.6 03/13/2008 11:31 AM FUEL TRUCK DRIVER Plan of Treatment Health Maintenance Due Date [...]
--- OUTSIDE RECORDS SUMMARY | 2024-10-26 14:35 | XMS_ITS | Encounter Summary ---
Author Organization [facility] Address [address] [place] [address] Phone Care Team Providers Care Sternman Name Role Phone Catracho Marshall MD Primary Care Provider + [phone] Encounter Details Date Type Department Care Team (Latest Contact Info) Description 09/08/2005 Orders Only [facility] Crystal Barfield RN [address] [facility] [address] [place], [place] [phone] Social History Tobacco Use Types Packs/Day Years [...] on filedocumented in this encounter Care Teams [place]man Relationship Specialty Start Date End Date Catracho Marshall MD [address] [place] [address] PCP - General Internal Medicine 12/05/22 documented as of this encounter
--- OUTSIDE RECORDS SUMMARY | 2024-10-26 14:35 | XMS_ITS | Referral Summary ---
Author Organization [facility] [address] Address [address] [place] [address] Care Team Providers Care Motion Picture Set Worker Name Role Phone Catracho Marshall MD Primary Care Provider + [phone] Encounters Date Type Department Care Team Description 10/25/2024 3:30 PM CDT Office Visit [facility] Cardiology [address] [facility] [address] [place] [address] Tiara Hartman MD NSVT (nonsustained ventricular tachycardia) (HCC) (Primary Dx); Presence of electronic cardiac device 10/25/2024 3:00 PM CDT Ancillary Procedure [facility] Cardiology [address] [facility] [address] [place] [address] Transient ischemic attack (Primary Dx); Presence of electronic cardiac device; NSVT (nonsustained ventricular tachycardia) (HCC) 09/22/2024 Orders Only [facility] Cardiology [address] [facility] Office [address] [place] [address] Tiara Hartman MD 08/25/2024 Telephone [facility] Cardiology [address] [facility] Advanced Medicine 8th [place] [address] [place] [address] Taiwo Marshall MD Surgical Clearance (Colonoscopy) 08/24/2024 Orders Only [facility] Health Information Management [address] [place] [address] Scanning, Provider 08/10/2024 11:15 AM CDT Office Visit [facility] Cardiology [address] [facility] [address] [place] [address] Taiwo Marshall MD NSVT (nonsustained ventricular tachycardia) ([facility]) from Last 3 Months Allergies Active Allergy [...] the skin every 7 days 025 Discontin ued(Jose F jethro order) Active Problems Problem Noted Date Diagnosed Date Transient ischemic attack (TIA) 10/28/2023 Sinus bradycardia 10/27/2023 NSVT (nonsustained ventricular tachycardia) 0405/2023 PVC (premature ventricular contraction) 07/28/19 24 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 Dx; TIA, monitor for Afib. DOI 01/20/2023-Lisette. Aleksander remote monitoring. Non-sustained ventricular tachycardia 01/02/2023 TIA [...] 10/25/2024 2:59 PM CDT Plan of Treatment Not on file Medical Devices Implanted Type Area Professor Of Geography Device Identifier Shelf Expiration Date Model / Serial / Lot Carlotz Nikita Monitor Lux-Dx Ii Insertable Sheetfed Press Operator [id number] - [id number] - [id number] Implanted:Qty: 1 on 10/28/2023 by Tiara Hartman MD at [facility] Implantable Loop Recorder Carlotz Nikita 03/08/2025 [id number] / [id number] / [id number] Procedures Procedure Name Priority Date/Time Associated Diagnosis [...] Leads (BL) Normal battery parameters Presenting Rhythm (VA) Normal Sinus Rhythm Arrhythmic events (AE) No new arrhythmic events in monitoring period Transmission Information (TI) Implant indication: Cryptogenic Stroke Device Summary Report Procedure Note Tiara Hartman MD - 09/23/2024 Interpretation Summary: Battery and Leads (BL) Normal battery parameters Presenting Rhythm (VA) Normal Sinus Rhythm Arrhythmic events (AE) No new arrhythmic events in monitoring period Transmission Information (TI) Implant indication: Cryptogenic Stroke Device Summary Report us Tiara Hartman MD [facility] PROCEDURES Final Result * DEVICE CHECK - REMOTE (08/22/2024 8:57 PM CDT) Anatomical Region Laterality Modality Other 08/22/2024 8:57 PM CDT Narrative 08/24/2024 11:13 AM CDT Interpretation Summary: Battery and Leads (BL) Normal battery parameters Presenting Rhythm (VA) Normal Sinus Rhythm Arrhythmic events (AE) No new arrhythmic events in monitoring period Transmission Information (TI) Device Summary Report Procedure Note Tiara Hartman MD - 08/24/2024 Interpretation Summary: Battery and Leads (BL) Normal battery parameters Presenting Rhythm (VA) Normal Sinus Rhythm Arrhythmic events (AE) No new arrhythmic events in monitoring period Transmission Information (TI) Device Summary Report Provider Scanning [facility] C[facility]IAC SERVICES PROCEDURES Final Result from Last 3 Months [id number] [place] [id number] [place] [address] [facility] Advance Directives For more information, please contact: [phone] * Full Code (Latest Code Status on File) Date Activated Date Inactivated Comments 07/01/2023 10:33 AM 07/01/2023 4:53 PM * Full Code Date Activated Date Inactivated Comments 06/19/2023 8:03 AM 06/20/2023 4:38 AM Care Teams Motion Picture Set Worker Relationship Specialty Start Date End Date Catracho Marshall MD [address] [place] [address] PCP - General Internal Medicine 12/05/22
--- OUTSIDE RECORDS SUMMARY | 2024-10-26 14:35 | XMS_ITS | Encounter Summary ---
Author Organization [facility] Address [address] [place] [address] Phone Care Team Providers Care Creative Designer Name Role Phone Adria Fletcher MD Primary Care Provider + [phone] Reason for Visit * Cardiology (Routine) - Authorized Specialty Diagnoses / Procedures Referred By Contac t Referred To Contact Diagnoses Transient ischemic attack Presence of electronic cardiac device NSVT (nonsustained ventricular tachycardia) (HCC) Procedures DEVICE CHECK - IN OFFICE Tiara Hartman MD Phone: tel: fax: [facility] (All Locations) Referral ID Status Reason Start Date Expiration Date V isits Requested Visits Authorized [id number] Authorized 11/10/2023 12/09/2024 99 99 Encounter Details Date Type Department Care Team (Late st Contact Info) Description 10/25/2024 3:30 PM CDT Office Visit [facility] Cardiology [address] [facility] [address] [place] [address] Tiara Hartman MD [facility] [address] [address] NSVT (nonsustained ventricular tachycardia) (HCC) (Primary Dx); Presence of electronic cardiac device Social History Tobacco Use Types Packs/Day Years [...] on file documented as of this encounter Last Filed Vital Signs Vital Sign Reading Time Taken Comments Blood Pressure 126/80 10/25/2024 2:59 PM CDT Pulse 69 10/25/2024 2:59 PM CDT Temperature 36.6 C (97.9 F) 10/25/2024 2:59 PM CDT Respiratory Rate - - Oxygen Saturation 96% 10/25/2024 2:59 PM CDT Inhaled Oxygen Concentration - - Weight 102 kg (224 lb 12.8 oz) 10/25/2024 2:59 P M CDT Height 154.9 cm (5' 1) 10/25/2024 2:59 PM CDT Body Mass Index 42.48 10/25/2024 2:59 PM CDT documented in this encounter Progress Notes * Tiara Hartman MD - 10/25/2024 12:00 AM CDT Date: 10/25/2024 ADRIA FLETCHER MD [address] [place] [address] Patient Name: VINOD KOO Date of : 1960 Date of Visit: 10/25/[address] Fletcher: I saw Ms. 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 She is 64 years old. She now has an ILR. PROBLEM LIST: 1. Transient ischemic attack, cryptogenic, September 2022. a. Expressive aphasia for 15 minutes. b. Seen at [facility]. c. ILR implanted 2023. 2. Hypertension for 1 year. 3. Diabetes for 5 to 6 years. 4. Coronary artery disease. Recent cardiac catheterization with 70% D1 stenosis. To have PCI tomorrow. a. Cardiac catheterization 07/01/2023, negative mid LAD IFR, negative second diagonal IFR. 5. Chronic kidney disease stage 3. 6. Anticoagulation with apixaban, started by Dr. Fletcher. 7. Premature ventricular contractions 20 years ago. a. Previously on metoprolol. b. Currently on Coreg. c. Outside hospital 30-day monitor demonstrated 1% PVCs. Strips independently reviewed and no frequent PVCs seen. 8. Nonsustained ventricular tachycardia seen on outside monitor. a. EF is 55% to 60% on outside hospital echo. 9. Sinus bradycardia, heart rate 54. HISTORY: Ms. Koo states that she has not had any further TIA-like symptoms. 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 She has had no loss of consciousness, no stroke, no hospitalizations. 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 She does note some lightheadedness when she stands up from a squat position carrying something heavy. She has fortunately not fallen. She did have a step ladder hit her left lee and leave a significant bruise. She does not do any regular exercise but states she is quite busy and always on the go. MEDICATIONS: 1. Xanax p.r.n. 2. Aspirin 81 mg a day. 3. Lipitor 80 mg a day. 4. Coreg 25 b.i.d. 5. Celexa 40 mg daily. 6. Eliquis [address] Fletcher. 7. Estrace 1 mg daily. 8. Tricor 48 mg daily. 9. Atrovent. 10. Xalatan. 11. Mounjaro 12.5 mg weekly. 12. Multivitamin. 13. Wildwood-3. 14. Fish oil. 15. Pantoprazole. 16. Potassium. 17. Entresto b.i.d. 18. Tramadol. 19. Zolpidem. PHYSICAL EXAMINATION: GENERAL: Well-appearing. VITAL SIGNS: Blood pressure 126/80, heart rate 69, oxygen saturation 96%. BMI 42.5, down from 44. CHEST: Clear. The ILR is well healed. CARDIAC: Regular rate and rhythm. S1, S2 normal. ABDOMEN: Round. EXTREMITIES: No edema. DEVICE INTERROGATION: Her ILR is a [employer], implant date 10/28/2023. She is currently in sinus rhythm. There have been no recent alerts. There are no PVCs on the monitoring. No AFib. DATA REVIEW: I reviewed her outside hospital labs, which demonstrated creatinine of 1.5 and a potassium of 3.9. These were done at [facility] [place] last January and are the most recent labs in her chart. IMPRESSION AND PLAN: 1. Cryptogenic transient ischemic attack. No evidence of atrial fibrillation. 2. Nonsustained ventricular tachycardia. No events have been noted. We are recording tachyarrhythmias at heart rates greater than 170 beats per minute for 5 seconds. 3. Implantable loop recorder in place. Battery status is good. I have ordered continued every 30-day Latitude monitoring. I asked that she call our office if she feels her PVCs/palpitations have increased. If I can be any further assistance, please do not hesitate to contact me. Respectfully, ELECTRONICALLY SIGNED - 10/26/2024 09:04 AM Tiara Hartman M.D., F.A.C.C., F.H.R.S. edge bander operator MG/lw cc: ADRIA FLETCHER MD / / documented in this encounter Plan of Treatment Not on file documented as of this encounter Visit Diagnoses Diagnosis NSVT (nonsustained ventricular tachycardia) (HCC)- Primary Presence of electronic cardiac device documented in this encounter Discontinued Medications Medication Sig Discontinue Reason Start Date End Da te tirzepatide (Mounjaro) 7.5 mg/0.5 mL pen injector injection Inject 0.5 mL (7.5 mg total) under the skin every 7 days Duplicate order 10/25/2024 documented as of this encounter Historical Medications * This list may reflect changes made after this encounter. Medhatunjaro 12.5 mg/0.5 mL pen injector injection Inject 0.5 mL (12.5 mg total) under the skin once a week 10/06/2024 traMADoL (ULTRAM) 50 mg tablet Take by mouth every 6 (six) hours as needed 09/28/2024 added in this encounter Care Teams Creative Designer Relationship Specialty Start Date End Date Adria Fletcher MD [address] [place] [address] PCP - General Internal Medicine 12/05/22 documented as of this encounter
--- OUTSIDE RECORDS SUMMARY | 2024-10-26 14:35 | XMS_ITS | Encounter Summary ---
Author Organization [facility] Address [address] [place] [address] Phone Care Team Providers Care Import Specialist Name Role Phone Catracho Marshall MD Primary Care Provider + [phone] Reason for Referral * Cardiology (Routine) - Authorized Specialty Diagnoses / Procedures Referred By Contac t Referred To Contact Diagnoses Transient ischemic attack Presence of electronic cardiac device Procedures DEVICE CHECK - IN OFFICE Tiara Hartman MD [address] [place] [address] Phone: tel: fax: [facility] [address] [facility] [address] [place] [address] Phone: tel: fax: Referral ID Status Reason Start Date Expiration Date V isits Requested Visits Authorized [id number] Authorized 10/25/2024 11/24/2025 1 1 Reason for Visit * Cardiology (Routine) - Authorized Specialty Diagnoses / Procedures Referred By Contac t Referred To Contact Diagnoses Transient ischemic attack Presence of electronic cardiac device NSVT (nonsustained ventricular tachycardia) (HCC) Procedures DEVICE CHECK - IN OFFICE Tiara Hartman MD Phone: tel: fax: [facility] (All Locations) Referral ID Status Reason Start Date Expiration Date V isits Requested Visits Authorized [id number] Authorized 11/10/2023 12/09/2024 99 99 Encounter Details Date Type Department Care Team (Latest Contact Info) Description 10/25/2024 3:00 PM CDT Ancillary Procedure [facility] [address] [facility] [address] [place] [address] Transient ischemic attack (Primary Dx); Presence of electronic cardiac device; NSVT (nonsustained ventricular tachycardia) (HCC) Social History Tobacco Use Types Packs/Day Years [...] as of this encounter Plan of Treatment Pending Results Name Type Priority Associated Diagnoses Date /Time DEVICE CHECK - IN OFFICE Cardiac Services Routine Transient ischemic attack Presence of electronic cardiac device NSVT (nonsustained ventricular tachycardia) (HCC) 10/25/2024 2:17 PM CDT Scheduled Orders Name Type Priority Associated Diagnoses Orde r Schedule DEVICE CHECK - IN OFFICE Cardiac Services Routine Transient ischemic attack Presence of electronic cardiac device 1 Occurrences starting 10/25/2024 until 04/27/2026 documented as of this encounter Visit Diagnoses Diagnosis Transient ischemic attack- Primary Unspecified transient cerebral ischemia Presence of electronic cardiac device NSVT (nonsustained ventricular tachycardia) (HCC) documented in this encounter Care Teams Import Specialist Relationship Specialty Start Date End Date Catracho Marshall MD [address] [place] [address] PCP - General Internal Medicine 12/05/22 documented as of this encounter
--- OUTSIDE RECORDS SUMMARY | 2024-10-26 14:35 | XMS_ITS | Encounter Summary ---
Author Organization [facility] Address [address] [place] [address] Phone Care Team Providers Care Superintendent Colliery Name Role Phone Catracho Marshall MD Primary Care Provider + [phone] Encounter Details Date Type Department Care Team (Latest Contact Info) Description 10/03/2022 Orders Only [facility] Crystal Barfield RN [address] [facility] [address] [place], [place] [id number] Social History Tobacco Use Types Packs/Day Years [...] on filedocumented in this encounter Care Teams Superintendent Colliery Relationship Specialty Start Date End Date Catracho Marshall MD [address] [place] [address] PCP - General Internal Medicine 12/05/22 documented as of this encounter
--- OUTSIDE RECORDS SUMMARY | 2024-10-26 14:35 | XMS_ITS | Encounter Summary ---
Author Organization [facility] Address [address] [place] [address] Phone Care Team Providers Care Java Manager Name Role Phone Catracho Marshall MD Primary Care Provider [phone] Encounter Details Date Type Department Care Team [...] on filedocumented in this encounter Care Teams Java Manager Relationship Specialty Start Date End Date Catracho Marshall MD [address] [place] [address] PCP - General Internal Medicine 12/05/22 documented as of this encounter
== END 2024-10-26 14:27 | disposition home or self-care (01) ==
PROVIDERS: PCP Internal Medicine; Visit Provider Internal Medicine
DX: S83.231A Complex tear of medial meniscus, current injury, right knee, initial encounter (principal); X58.XXXA Exposure to other specified factors, initial encounter; M17.11 Unilateral primary osteoarthritis, right knee
CPT/HCPCS: 73721

== ENCOUNTER 2025-01-02 12:32 | Outpatient (CLI) | payer OTHER, SELFPAY ==
--- OUTSIDE RECORDS SUMMARY | 2025-01-02 12:37 | XMS_ITS | Encounter Summary ---
Author Organization [facility] Address [address] [place] [address] Phone Care Team Providers Care Estimator And Drafter Supervisor Name Role Phone Catracho Marshall MD Primary Care Provider + [phone] Encounter Details Date Type Department Care Team (Latest Contact Info) Description 02/23/2023 Orders Only [facility] Crystal Barfield, JUDY [address] [facility] [address] [place], [place] [id number] Social History Tobacco Use Types Packs/Day Years [...] on filedocumented in this encounter Care Teams Estimator And Drafter Supervisor Relationship Specialty Start Date End Date Catracho Marshall MD [address] [place] [address] PCP - General Internal Medicine 12/05/22 documented as of this encounter
--- OUTSIDE RECORDS SUMMARY | 2025-01-02 12:37 | XMS_ITS | Encounter Summary ---
Author Organization [facility] Address [address] [place] [address] Phone Care Team Providers Care Front End Manager Name Role Phone Catracho Marshall MD Primary Care Provider + [phone] Encounter Details Date Type Department Care Team (Latest Contact Info) Description 11/25/2022 Orders Only [facility] Crystal Barfield RN [address] [facility] [address] [place], [place] [id number] Social History Tobacco Use Types Packs/Day Years [...] on filedocumented in this encounter Care Teams Front End Manager Relationship Specialty Start Date End Date Catracho Marshall MD [address] [place] [address] PCP - General Internal Medicine 12/05/22 documented as of this encounter
--- OUTSIDE RECORDS SUMMARY | 2025-01-02 12:37 | XMS_ITS | Encounter Summary ---
Author Organization [facility] Address [address] [place] [address] Phone Care Team Providers Care Custom Shoe Designer And Maker Name Role Phone Catracho Marshall MD Primary Care Provider [phone] Encounter Details Date Type Department Care Team [...] on filedocumented in this encounter Care Teams Custom Shoe Designer And Maker Relationship Specialty Start Date End Date Catracho Marshall MD [address] [place] [address] PCP - General Internal Medicine 12/05/22 documented as of this encounter
--- OUTSIDE RECORDS SUMMARY | 2025-01-02 12:37 | XMS_ITS | Clinical Summary ---
Author Organization [facility] Address [address] [place] [address] Care Team Providers Care Federal Aid Coordinator Name Role Phone Unavailable Primary Care Provider [...] 100.7 kg (222 lb) 03/13/2008 11:31 AM TEST LEAD APPLICATION TESTING Height 157.5 cm (5' 2) 03/13/2008 11:31 AM TEST LEAD APPLICATION TESTING Body Mass Index 40.6 03/13/2008 11:31 AM TEST LEAD APPLICATION TESTING Plan of Treatment Health Maintenance Due Date [...]
--- OUTSIDE RECORDS SUMMARY | 2025-01-02 12:37 | XMS_ITS | Encounter Summary ---
Author Organization [facility] Address [address] [place] [address] Phone Care Team Providers Care Integration Lead Name Role Phone Catracho Marshall MD Primary Care Provider + [phone] Encounter Details Date Type Department Care Team (Latest Contact Info) Description 01/06/2024 Orders Only [facility] Crystal Barfield, JUDY [address] [facility] [address] [place], [place] [id number] Social History Tobacco Use Types Packs/Day Years [...] on filedocumented in this encounter Care Teams Integration Lead Relationship Specialty Start Date End Date Catracho Marshall MD [address] [place], [place] [id number] PCP - General Internal Medicine 12/05/22 documented as of this encounter
--- OUTSIDE RECORDS SUMMARY | 2025-01-02 12:37 | XMS_ITS | Encounter Summary ---
Author Organization [facility] Address [address] [place] [address] Phone Care Team Providers Care Freight Separator Name Role Phone Catracho Marshall MD Primary Care Provider + [phone] Encounter Details Date Type Department Care Team (Latest Contact Info) Description 10/03/2022 Orders Only [facility] Crystal Barfield RN [address] [facility] [address] [place], [place] [id number] Social History Tobacco Use Types Packs/Day Years [...] on filedocumented in this encounter Care Teams Freight Separator Relationship Specialty Start Date End Date Catracho Marshall MD [address] [place] [address] PCP - General Internal Medicine 12/05/22 documented as of this encounter
--- OUTSIDE RECORDS SUMMARY | 2025-01-02 12:37 | XMS_ITS | Encounter Summary ---
Author Organization [facility] Address [address] [place] [address] Phone Care Team Providers Care Lvn Lpn Name Role Phone Catracho Marshall MD Primary Care Provider + [phone] Encounter Details Date Type Department Care Team (Latest Contact Info) Description 09/08/2005 Orders Only [facility] Crystal Barfield RN [address] [facility] [address] [place], [place] [phone] Social History Tobacco Use Types Packs/Day Years [...] on filedocumented in this encounter Care Teams Lvn Lpn Relationship Specialty Start Date End Date Catracho Marshall MD [address] [place] [address] PCP - General Internal Medicine 12/05/22 documented as of this encounter
--- OUTSIDE RECORDS SUMMARY | 2025-01-02 12:37 | XMS_ITS | Encounter Summary ---
Author Organization [facility] Address [address] [place] [address] Phone Care Team Providers Care Clinical Director Name Role Phone Catracho Marshall MD Primary Care Provider + [phone] Encounter Details Date Type Department Care Team (Latest Contact Info) Description 04/03/2023 Orders Only [facility] Crystal Barfield RN [address] [facility] [address] [place], [place] [id number] Social History Tobacco Use Types Packs/Day Years [...] on filedocumented in this encounter Care Teams Clinical Director Relationship Specialty Start Date End Date Catracho Marshall MD [address] [place] [id number] PCP - General Internal Medicine 12/05/22 documented as of this encounter
--- OUTSIDE RECORDS SUMMARY | 2025-01-02 12:37 | XMS_ITS | Encounter Summary ---
Author Organization [facility] Address [address] [place] [address] Phone Care Team Providers Care Bottle Carrier Name Role Phone Catracho Marshall MD Primary Care Provider + [phone] Encounter Details Date Type Department Care Team (Latest Contact Info) Description 12/14/2023 Orders Only [facility] Crystal Barfield, JUYD [address] [facility] [address] [place], [place] [id number] Social History Tobacco Use Types Packs/Day Years [...] on filedocumented in this encounter Care Teams Bottle Carrier Relationship Specialty Start Date End Date Catracho Marshall MD [address] [place], [place] [id number] PCP - General Internal Medicine 12/05/22 documented as of this encounter
[2025-01-02 12:51] LABS: Add Urine Microscopic? YES; Appearance Urine Clear (Clear); Glucose Urine UA Negative (Negative); Hematocrit 33.9 % (35.0-49.0); Hemoglobin 11.2 g/dL (12.0-15.0); Leukocyte Esterase Ur Negative LEU/UL (Negative); Mean Corpuscular HGB Conc 33.0 g/dL (32-36); Mean Corpuscular Hemoglobin 31.6 pg (27.0-31.0); Mean Corpuscular Volume 95.8 fL (78.0-102.0); Nitrate Urine Negative (Negative); Platelet Count Result 222 K/mm3 (150-420); Red Blood Count 3.54 M/mm3 (4.20-5.40); Specific Grav Ur 1.025 (1.010-1.020); White Blood Count 5.0 K/mm3 (4.8-10.8)
[2025-01-02 12:57] LABS: Total Protein Urine Random < 5 mg/dL; Ur Ttl Prot Creatinine Ratio 0.00 mg/mg (0-0.20)
[2025-01-02 12:59] LABS: MALB Creatinine Ratio 0.0 mg/g (0-30)
[2025-01-02 13:08] LABS: Hemoglobin A1C 4.8 % (<5.7)
[2025-01-02 13:17] LABS: Alanine Aminotransferase 16 U/L (6-35); Albumin Level 4.2 g/dL (3.5-5.1); Alkaline Phosphatase 41 U/L (38-126); Anion Gap 7 mmol/L (4-12); Aspartate Amino Transferase 24 U/L (14-36); Bilirubin,Total 0.6 mg/dL (0.2-1.3); Blood Urea Nitrogen 21 mg/dL (7-17); Calcium 9.7 mg/dL (8.4-10.2); Carbon Dioxide 28 mmol/L (22-30); Chloride 105 mmol/L (98-107); Cholesterol 141 mg/dL (0-200); Creatine Kinase 40 U/L (30-135); Estimated Glomerular Filt Rate 32; Glucose 91 mg/dL (65-110); HDL Direct 56 mg/dL; Iron 95 ug/dL (37-170); Osmolality Calculated 293 mOsm/kg (285-295); Potassium 4.6 mmol/L (3.4-5.0); Sodium 140 mmol/L (137-145); Total Protein 6.2 g/dL (6.3-8.2); Triglycerides 80 mg/dL (<150)
[2025-01-02 13:52] LABS: Ferritin 181.00 ng/mL (11.1-264)
== END 2025-01-02 12:33 | disposition home or self-care (01) ==
LOC: CHSLAB 12:35
PROVIDERS: PCP Internal Medicine; Visit Provider Internal Medicine Nephrology
DX: I12.9 Hypertensive chronic kidney disease with stage 1 through stage 4 chronic kidney disease, or unspecified chronic kidney disease (principal); N18.32 Chronic kidney disease, stage 3b; E11.22 Type 2 diabetes mellitus with diabetic chronic kidney disease; E78.2 Mixed hyperlipidemia; N39.0 Urinary tract infection, site not specified; D64.9 Anemia, unspecified
CPT/HCPCS: 36415; 80053; 80061; 80069; 81001; 82043; 82550; 82570; 82728; 83036; 83540; 84156; 85027

== ENCOUNTER 2025-02-24 11:17 | Outpatient (CLI) | payer OTHER, SELFPAY ==
--- OUTSIDE RECORDS SUMMARY | 2025-02-24 11:31 | XMS_ITS | Encounter Summary ---
Author Organization [facility] Address [address] [place] [address] Phone Care Team Providers Care Job Placement Counselor Name Role Phone Catracho Marshall MD Primary Care Provider + [phone] Encounter Details Date Type Department Care Team (Late st Contact Info) Description 02/14/2025 Results Follow-Up [facility] Medicine Cardiology [address] [facility] Advanced Medicine 8th [place] [address] [place] [address] Kari Thompson RN SCAN - LABS Social History Tobacco Use Types Packs/Day Years [...] documented as of this encounter Visit Diagnoses Not on filedocumented in this encounter Care Teams Job Placement Counselor Relationship Specialty Start Date End Date Catracho Marshall MD [address] [place] [address] PCP - General Internal Medicine 12/05/22 documented as of this encounter
--- OUTSIDE RECORDS SUMMARY | 2025-02-24 11:31 | XMS_ITS | Encounter Summary ---
Author Organization [facility] Address [address] [place] [address] Phone Care Team Providers Care Instrument Repair Technician Name Role Phone Catracho Marshall MD Primary Care Provider [phone] Encounter Details Date Type Department Care Team [...] filedocumented in this encounter Care Teams Instrument Repair Technician Relationship Specialty Start Date End Date Catracho Marshall MD [address] [place] [address] PCP - General Internal Medicine 12/05/22 documented as of this encounter
--- OUTSIDE RECORDS SUMMARY | 2025-02-24 11:31 | XMS_ITS | Clinical Summary ---
Author Organization [facility] Address [address] [place] [address] Care Team Providers Care Assessment Rn Name Role Phone Unavailable Primary Care Provider [...] 100.7 kg (222 lb) 03/13/2008 11:31 AM STIPPLER Height 157.5 cm (5' 2) 03/13/2008 11:31 AM STIPPLER Body Mass Index 40.6 03/13/2008 11:31 AM STIPPLER Plan of Treatment Health Maintenance Due Date [...] of 2) 2012 COVID-19 Vaccine ( - 2024-2 6 season) 2024 Influenza Adult (#1) 2025 RSV Immunization or 60+ Years (1 - 1-dose 75+ series) 2037 Hepatitis A Vaccines Aged Out No long er eligible based on patient's age to complete this topic Meningococcal B Vaccine Aged Out No l onger eligible based on patient's age to complete this topic Meningococcal Vaccine Aged Out No agustin bipin eligible based on patient's age to complete this topic RSV Immunizations Under 20 Months Aged Out No longer eligible based on patient's age to complete this topic
--- OUTSIDE RECORDS SUMMARY | 2025-02-24 11:31 | XMS_ITS | Encounter Summary ---
Author Organization [facility] Address [address] [place] [address] Phone Care Team Providers Care Fan Mail Editor Name Role Phone Catracho Marshall MD Primary Care Provider + [phone] Encounter Details Date Type Department Care Team (Latest Contact Info) Description 10/03/2022 Orders Only [facility] Crystal Barfield RN [address] [facility] [address] [place], [place] [id number] Social History Tobacco Use Types Packs/Day Years [...] on filedocumented in this encounter Care Teams Fan Mail Editor Relationship Specialty Start Date End Date Catracho Marshall MD [address] [place] [address] PCP - General Internal Medicine 12/05/22 documented as of this encounter
--- OUTSIDE RECORDS SUMMARY | 2025-02-24 11:31 | XMS_ITS | Encounter Summary ---
Author Organization [facility] Address [address] [place] [address] Phone Care Team Providers Care Pot Fisher Name Role Phone Catracho Marshall MD Primary Care Provider + [phone] Encounter Details Date Type Department Care Team (Latest Contact Info) Description 12/14/2023 Orders Only [facility] Crystal Barfield, JUDY [address] [facility] [address] [place], [place] [id number] Social History Tobacco Use Types Packs/Day Years [...] filedocumented in this encounter Care Teams Pot Fisher Relationship Specialty Start Date End Date Catracho Marshall MD [address] [place], [place] [id number] PCP - General Internal Medicine 12/05/22 documented as of this encounter
--- OUTSIDE RECORDS SUMMARY | 2025-02-24 11:31 | XMS_ITS | Encounter Summary ---
Author Organization [facility] Address [address] [place] [address] Phone Care Team Providers Care Director Asset Name Role Phone Catracho Marshall MD Primary Care Provider + [phone] Encounter Details Date Type Department Care Team (Latest Contact Info) Description 09/08/2005 Orders Only [facility] Crystal Barfield RN [address] [facility] [address] [place], [place] [id number] Social History Tobacco Use Types Packs/Day Years [...] filedocumented in this encounter Care Teams Director Asset Relationship Specialty Start Date End Date Catracho Marshall MD [address] [place] [address] PCP - General Internal Medicine 12/05/22 documented as of this encounter
--- OUTSIDE RECORDS SUMMARY | 2025-02-24 11:31 | XMS_ITS | Encounter Summary ---
Author Organization [facility] Address [address] [place] [address] Phone Care Team Providers Care Cubing Machine Tender Name Role Phone Catracho Marshall MD Primary Care Provider + [phone] Encounter Details Date Type Department Care Team (Latest Contact Info) Description 01/06/2024 Orders Only [facility] Crystal Barfield, JUDY [address] [facility] [address] [place], [place] [id number] Social History Tobacco Use Types Packs/Day Years [...] on filedocumented in this encounter Care Teams Cubing Machine Tender Relationship Specialty Start Date End Date Catracho Marshall MD [address] [place], [place] [id number] PCP - General Internal Medicine 12/05/22 documented as of this encounter
--- OUTSIDE RECORDS SUMMARY | 2025-02-24 11:31 | XMS_ITS | Encounter Summary ---
Author Organization [facility] Address [address] [place] [address] Phone Care Team Providers Care Fourth Grade Teacher Name Role Phone Catracho Marshall MD Primary Care Provider + [phone] Encounter Details Date Type Department Care Team (Latest Contact Info) Description 02/23/2023 Orders Only [facility] Crystal Barfield, JUDY [address] [facility] [address] [place], [place] [id number] Social History Tobacco Use Types Packs/Day Years [...] on filedocumented in this encounter Care Teams Fourth Grade Teacher Relationship Specialty Start Date End Date Catracho Marshall MD [address] [place] [address] PCP - General Internal Medicine 12/05/22 documented as of this encounter
--- OUTSIDE RECORDS SUMMARY | 2025-02-24 11:31 | XMS_ITS | Encounter Summary ---
Author Organization [facility] Address [address] [place] [address] Phone Care Team Providers Care Gps Field Data Collector Name Role Phone Catracho Marshall MD Primary Care Provider + [phone] Encounter Details Date Type Department Care Team (Latest Contact Info) Description 01/02/2025 Orders Only [facility] Crystal Barfield, JUDY [address] [facility] [address] [place], [place] [id number] Social History Tobacco Use Types Packs/Day Years [...] Date/Time Associated Diagnosis Comments SCAN - LABS 01/02/2025 documented in this encounter Results * SCAN - LABS (01/02/2025) us Crystal Barfield RN Final Result documented in this encounter Visit Diagnoses Not on filedocumented in this encounter Care Teams Gps Field Data Collector Relationship Specialty Start Date End Date Catracho Marshall MD [address] [place], [place] [id number] PCP - General Internal Medicine 12/05/22 documented as of this encounter
--- OUTSIDE RECORDS SUMMARY | 2025-02-24 11:31 | XMS_ITS | Encounter Summary ---
Author Organization [facility] Address [address] [place] [address] Phone Care Team Providers Care Floor Specialist Name Role Phone Catracho Marshall MD Primary Care Provider + [phone] Encounter Details Date Type Department Care Team (Latest Contact Info) Description 04/03/2023 Orders Only [facility] Crystal Barfield RN [address] [facility] [address] [place], [place] [phone] Social History Tobacco Use Types Packs/Day Years [...] on filedocumented in this encounter Care Teams Floor Specialist Relationship Specialty Start Date End Date Catracho Marshall MD [address] [place] [id number] PCP - General Internal Medicine 12/05/22 documented as of this encounter
--- OUTSIDE RECORDS SUMMARY | 2025-02-24 11:31 | XMS_ITS | Clinical Summary ---
Author Organization [facility] [address] Address [address] [place] [address] Care Team Providers Care Counterintelligence Analyst Name Role Phone Catracho Marshall MD Primary Care Provider + [phone] Allergies Active Allergy Reactions Criticality Noted Date [...] into both eyes nightly 10/22/[address] (PROTONIX) 40 mg EC tablet Take 1 tablet (40 mg total) by mouth nightly 12/13/19 23 Active zolpidem (AMBIEN) 5 mg tablet Take 1 tablet (5 mg total) by mouth nightly 10/16/19 23 Active carvediloL (COREG) 12.5 mg tablet Take 1 tablet (12.5 mg total) by mouth 2 (two) times a day 12/19/19 23 Active multivitamin capsule Take 1 capsule by mouth daily Active Eliquis 5 mg tablet Take 1 tablet (5 mg total) by mouth 2 (two) times a day 04/22/20 23 Active ALPRAZolam (XANAX) 0.25 mg tablet 02/02/20 24 Active atorvastatin (LIPITOR) 80 mg tablet Take 1 tablet (80 mg total) by mouth daily 90 tablet 3 05/18/19 25 Active omega-3 fatty acids (LOVAZA) 1 gram capsule Take 2 capsules (2 g total) by mouth daily 180 capsule 3 06/22/19 25 Active ipratropium (ATROVENT) 42 mcg (0.06 %) nasal spray Administer 2 sprays into each nostril 3 (three) times a day Active traMADoL (ULTRAM) 50 mg tablet Take by mouth every 6 (six) hours as needed 09/29/19 25 Active tirzepatide (MOUNJARO) 15 mg/0.5 mL pen injector injection Inject 0.5 mL (15 mg total) under the skin once a week 10/07/19 25 Active fenofibrate nanocrystallized (TRICOR) 48 mg tablet Take 1 tablet (48 mg total) by mouth daily 90 tablet 3 01/21/20 25 Active sacubitriL-valsarta n (ENTRESTO) 24-26 mg tabletIndications:c hronic heart failure Take 1 tablet by mouth 2 (two) times a day 180 tablet 3 01/21/20 25 Active nortriptyline (PAMELOR) 25 mg capsule Take 2 capsules (50 mg total) by mouth nightly 10/30/19 23 Discontinu ed(No longer taking - Do not display on AVS) glipiZIDE (GLUCOTROL) 5 mg tablet Take 0.5 tablets (2.5 mg total) by mouth daily 01/08/20 24 025 Discontinu ed(No longer taking - Do not display on AVS) potassium chloride ER 20 mEq CR tablet 02/02/20 Discontinu ed(No longer taking - Do not display on AVS) fluticasone propionate (FLONASE) 50 mcg/actuation nasal spray 02/02/20 24 025 Discontinu ed(Therapy completed) amLODIPine (NORVASC) 2.5 mg tablet 02/02/20 24 025 Discontinu ed(No longer taking - Do not display on AVS) dapagliflozin propanediol (FARXIGA) 10 mg tabletIndications:H eart Failure Take 1 tablet (10 mg total) by mouth daily 90 tablet 3 02/08/20 24 025 Discontinu ed(No longer taking - Do not display on AVS) dapagliflozin propanediol (FARXIGA) 10 mg tablet Take 1 tablet (10 mg total) by mouth daily 7 tablet 02/08/20 025 Discontinu ed(No longer taking - Do not display on AVS) Active Problems Problem Noted Date Diagnosed Date Transient ischemic attack (TIA) 10/28/2023 Sinus bradycardia 10/27/2023 NSVT (nonsustained ventricular tachycardia) 05/2023 PVC (premature ventricular contraction) 07/28/19 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 Dx; TIA, monitor for Afib. DOI 01/20/2023-Lisette. Carelink remote monitoring. Non-sustained ventricular tachycardia 01/02/2023 TIA (transient ischemic attack) 01/02/2023 Essential hypertension 01/02/2023 Dyslipidemia 01/02/2023 Encounters Date Type Department Care Team Description 02/14/2025 Results Follow-Up [facility] Medicine Cardiology [address] [place] [address] [place] [address] Kari Thompson RN SCAN - LABS 02/14/[address] [facility] Medicine Cardiology [address] [facility] [address] [place] [address] Lucia Ybarra 02/09/2025 11:15 AM CDT Office Visit [facility] Cardiology [address] [facility] [address] [place] [address] Taiwo Marshall MD Coronary artery disease of white earth artery of white earth heart with stable angina pectoris (Primary Dx) 01/19/2025 Remote Device Check [facility] Cardiology [address] [facility] [address] [place] [address] Tiara Hartman MD 01/02/2025 Orders Only [facility] CARDIOLOGY Crystal Barfield RN 12/23/2024 Orders Only [facility] Cardiology [address] [facility] [address] [place] [address] Tiara Hartman MD 11/25/2024 Orders Only [facility] Cardiology [address] [facility] [address] [place] [id number] Tiara Hartman MD from Last 3 Months Surgical History Surgery Date Site/Laterality Comments CARDIAC CATHETERIZATION 06/19/2023 Medical History Medical History Date Comments Arrhythmia Diabetes mellitus Hyperlipidemia Hypertension TIA (transient ischemic attack) Coronary [...] Sign Reading Time Taken Comments Blood Pressure 129/71 02/09/2025 11:12 AM CDT Pulse 52 02/09/2025 11:12 AM CDT Temperature 36.6 C (97.8 F) 02/09/2025 11:12 AM CDT Respiratory Rate 25 10/28/2023 10:45 AM CDT Oxygen Saturation 98% 02/09/2025 11:12 AM CDT Inhaled Oxygen Concentration - - Weight 95.9 kg (211 lb 6.4 oz) 02/09/2025 11:12 AM CDT Height 154.9 cm (5' 0.98) 02/09/2025 11:12 AM C DT Body Mass Index 39.96 02/09/2025 11:12 AM CDT Plan of Treatment Health Maintenance Due Date Last Done Comments Breast Cancer Screening-Mammogram 1962 Cervical Cancer Screening 1962 Colon Cancer Screening-Colonoscopy 1962 Depression Screening 1962 Hepatitis C Screening 1962 Hepatitis B Screening 1980 Regular Well Visit/Exam 18-64 1980 Zoster Vaccine (1 of 2) 2012 Pneumococcal vaccine <65 (3 of 3 - PCV20 or PCV21) 02/10/2024 02/09/2019, 10/16/2017, 06/26/2017 Covid-19 Vaccine (4 - 2024-2 6 season) 2024 04/08/2021, 07/25/2020, 06/27/2020 Influenza Vaccine (#1) 2024 2, 02/06/2021, 02/09/2019, Additional history exists DTaP/Tdap/Td Vaccine (2 - Td or Tdap) 06/27/2027 06/26/2017 Medical Devices Implanted Type Area Lacquer Pin Press Operator Device Identifier Shelf Expiration Date Model / Serial / Lot [employer] Nikita Monitor Lux-Dx Ii Insertable Sewing Machine Attachment Tester [id number] - [id number] - [id number] Implanted:Qty: 1 on 10/28/2023 by Tiara Hartman MD at [facility] Implantable Loop Recorder [employer] Nikita 03/08/2025 [id number] / [id number] / [id number] Procedures Procedure Name Priority Date/Time Associated Diagnosis Comments DEVICE CHECK - REMOTE Routine 01/19/2025 SCAN - LABS 01/02/2025 DEVICE CHECK - REMOTE Routine 12/23/2024 4:59 PM CDT DEVICE CHECK - REMOTE Routine 11/25/2024 1:03 PM CDT from Last 3 Months Results * DEVICE CHECK - REMOTE (01/19/2025) Anatomical Region Laterality Modality Other 01/19/2025 01/19/2025 Narrative 01/25/2025 3:42 PM CDT Device Summary Remote monitoring report: [employer] ILR Implant Date: Oct 28, 2023 Presenting rhythm: NSR 66 Battery status: OK Episodes Monitoring period: Dec 23, 2024 to Jan 19, 2025 No symptom episodes No arrhythmias noted LONNIE Alexander front end assistant Note Tiara Hartman MD - 01/25/2025 Device Summary Remote monitoring report: [employer] IL[employer] Implant Date: Oct 28, 2023 Presenting rhythm: NSR 66 Battery status: OK Episodes Monitoring period: Dec 23, 2024 to Jan 19, 2025 No symptom episodes No arrhythmias noted LONNIE Alexander RN us Tiara Hartman MD [facility] CARDIAC SERVICES PROCEDURES Final Result * SCAN - LABS (01/02/2025) us Crystal Barfield RN Final Result * DEVICE CHECK - REMOTE (12/23/2024 4:59 PM CDT) Anatomical Region Laterality Modality Other 12/23/2024 4:59 PM CDT Narrative 12/23/2024 5:37 PM CDT Interpretation Summary: Battery and Leads (BL) Normal battery parameters Presenting Rhythm (VT) Normal Sinus Rhythm --- NSR 63 Arrhythmic events (AE) No new arrhythmic events in monitoring period Transmission Information (TI) Device Summary Report Implant indication: Cryptogenic Stroke Procedure Note Tiara Hartman MD - 12/23/2024 Interpretation Summary: Battery and Leads (BL) Normal battery parameters Presenting Rhythm (VT) Normal Sinus Rhythm --- NSR 63 Arrhythmic events (AE) No new arrhythmic events in monitoring period Transmission Information (TI) Device Summary Report Implant indication: Cryptogenic Stroke Tiara Hartman MD CV CARDIAC SERVICES PROCEDURES Final Result * DEVICE CHECK - REMOTE (11/25/2024 1:03 PM CDT) Anatomical Region Laterality Modality Other 11/25/2024 1:03 PM CDT Narrative 12/23/2024 5:23 PM CDT Interpretation Summary: Battery and Leads (BL) Normal battery parameters Presenting Rhythm (VT) Normal Sinus Rhythm Arrhythmic events (AE) No new arrhythmic events in monitoring period Transmission Information (TI) Device Summary Report Implant indication: Cryptogenic Stroke Procedure Note Tiara Hartman MD - 12/23/2024 Interpretation Summary: Battery and Leads (BL) Normal battery parameters Presenting Rhythm (VT) Normal Sinus Rhythm Arrhythmic events (AE) No new arrhythmic events in monitoring period Transmission Information (TI) Device Summary Report Implant indication: Cryptogenic Stroke Result [facility] Tiara Hartman MD CV CARDIAC SERVICES PROCEDURES Final Result from Last 3 Months Insurance [facility] Advance Directives For more information, please contact: [phone] * Full Code (Latest Code Status on File) Date Activated Date Inactivated Comments 07/01/2023 10:33 AM 07/01/2023 4:53 PM * Full Code Date Activated Date Inactivated Comments 06/19/2023 8:03 AM 06/20/2023 4:38 AM Care Teams Counterintelligence Analyst Relationship Specialty Start Date End Date Catracho Marshall MD [address] [place] [address] PCP - General Internal Medicine 12/05/22
--- OUTSIDE RECORDS SUMMARY | 2025-02-24 11:31 | XMS_ITS | Encounter Summary ---
Author Organization [facility] Address [address] [place] [address] Phone Care Team Providers Care Cadd Drafter Name Role Phone Catracho Marshall MD Primary Care Provider + [phone] Encounter Details Date Type Department Care Team (Latest Contact Info) Description 11/25/2022 Orders Only [facility] Crystal Barfield RN [address] [facility] [address] [place], [place] [id number] Social History Tobacco Use Types Packs/Day Years [...] on filedocumented in this encounter Care Teams Cadd Drafter Relationship Specialty Start Date End Date Catracho Marshall MD [address] [place] [address] PCP - General Internal Medicine 12/05/22 documented as of this encounter
[2025-02-24 11:59] LABS: Alanine Aminotransferase 15 U/L (6-35); Albumin Level 4.0 g/dL (3.5-5.1); Alkaline Phosphatase 45 U/L (38-126); Anion Gap 8 mmol/L (4-12); Aspartate Amino Transferase 22 U/L (14-36); Bilirubin,Total 0.7 mg/dL (0.2-1.3); Blood Urea Nitrogen 23 mg/dL (7-17); Calcium 9.3 mg/dL (8.4-10.2); Carbon Dioxide 27 mmol/L (22-30); Chloride 108 mmol/L (98-107); Estimated Glomerular Filt Rate 33; Glucose 90 mg/dL (65-110); Iron 73 ug/dL (37-170); Magnesium 1.6 mg/dL (1.6-2.3); Osmolality Calculated 299 mOsm/kg (285-295); Potassium 4.4 mmol/L (3.4-5.0); Sodium 143 mmol/L (137-145); Total Protein 6.0 g/dL (6.3-8.2)
[2025-02-24 12:34] LABS: Ferritin 131.00 ng/mL (11.1-264)
== END 2025-02-24 11:18 | disposition home or self-care (01) ==
LOC: CHSLAB 11:19
PROVIDERS: PCP Internal Medicine; Visit Provider Internal Medicine
DX: G25.81 Restless legs syndrome (principal); D50.9 Iron deficiency anemia, unspecified
CPT/HCPCS: 36415; 80053; 82728; 83540; 83735